=== PATIENT | female | born 1945 | race Caucasian/White ===

== ENCOUNTER 2021-10-02 13:25 | Outpatient (REF) | payer MEDICARE, SELFPAY ==
--- NOTE | ~2021-10-02 | MM_ITS ---
EXAMINATION: MM SCREENING DIGITAL BREAST TOMOSYNTHESIS, BILATERAL CLINICAL INFORMATION: Screening. Asymptomatic. The lifetime risk of breast cancer based on the Tyrer-Cuzick Model is 5%. COMPARISON: Mammography: 12/24/2018, 05/21/2017, 11/16/2016, 03/21/2016, 03/13/2016 TECHNIQUE: Digital breast tomosynthesis is performed in both the craniocaudal and mediolateral oblique views along with computer-aided detection (CAD). Synthesized 2D images are generated from the tomosynthesis. Additional bilateral CC and additional bilateral MLO views are provided. FINDINGS: There are scattered areas of fibroglandular density (ACR BI-RADS breast composition Category b). There are no significant masses, abnormal calcifications, or other abnormalities. No developing density. There are scattered bilateral predominantly vascular calcifications. Chronic bilateral nipple retraction is again noted. No significant changes from prior studies. MM/MM tomosynthesis screening BI IMPRESSION: No significant changes from prior exams. ASSESSMENT: BI-RADS 2: Benign RECOMMENDATION: Routine annual mammography screening. This patient's information was entered into a reminder system with a target due date for their next mammogram.
== END 2021-10-02 13:26 | disposition home or self-care (01) ==
LOC: HO.MAMMO 13:25
PROVIDERS: PCP Family Medicine; Visit Provider Family Medicine
DX: Z12.31 Encounter for screening mammogram for malignant neoplasm of breast (principal)
CPT/HCPCS: 77063; 77067

== ENCOUNTER 2023-01-10 15:57 | Emergency (ER) | payer OTHER, SELFPAY ==
--- NOTE | ~2023-01-10 | XR_ITS ---
EXAMINATION: X-RAY RIGHT FOREARM X-RAY RIGHT WRIST CLINICAL INFORMATION: Fall, pain. COMPARISON: No similar priors. TECHNIQUE: 2 views of the right forearm and 3 views of the right wrist. FINDINGS: Horizontally oriented distal radial fracture with mild impaction and dorsal angulation of the distal fractured fragment. Nondisplaced ulnar styloid fracture. No other fractures. Carpal rows are well aligned. Decreased bone mineralization with moderate multifocal degenerative osteoarthritis. Diffuse soft tissue swelling/thickening. No unexpected radiopaque foreign bodies. XR/XR wrist RT min 3V IMPRESSION: 1. Distal radial fracture with impaction and dorsal angulation. 2. Nondisplaced ulnar styloid fracture. 3. Osteopenia. 4. Moderate multifocal degenerative osteoarthritis.
--- NOTE | ~2023-01-10 | XR_ITS ---
EXAMINATION: X-RAY RIGHT FOREARM X-RAY RIGHT WRIST CLINICAL INFORMATION: Fall, pain. COMPARISON: No similar priors. TECHNIQUE: 2 views of the right forearm and 3 views of the right wrist. FINDINGS: Horizontally oriented distal radial fracture with mild impaction and dorsal angulation of the distal fractured fragment. Nondisplaced ulnar styloid fracture. No other fractures. Carpal rows are well aligned. Decreased bone mineralization with moderate multifocal degenerative osteoarthritis. Diffuse soft tissue swelling/thickening. No unexpected radiopaque foreign bodies. XR/XR forearm RT 2V IMPRESSION: 1. Distal radial fracture with impaction and dorsal angulation. 2. Nondisplaced ulnar styloid fracture. 3. Osteopenia. 4. Moderate multifocal degenerative osteoarthritis.
[2023-01-10 16:09] VITALS: BP 163/74; PULSE 84; RESP 18; TEMP 36.2; O2SAT 96; BMI 50.8
--- NOTE | 2023-01-10 16:09 | ED_ITS ---
HPI - Fall General Chief Complaint: Extremity Injury, Upper <Ambika Crandall CNP - Last Filed: 01/10/23 16:15> Stated Complaint: fall right arm today 01/10 <Ambika Crandall CNP - Last Filed: 01/10/23 16:15> Time Seen by Provider: 01/10/23 19:31 <Ambika Crandall CNP - Last Filed: 01/10/23 16:15> Source: patient <OH Hodges - Last Filed: 01/10/23 20:59> Mode of arrival: ambulatory <OH Hodges - Last Filed: 01/10/23 20:59> Limitations: no limitations <OH Hodges Last Filed: 01/10/23 20:59> History of Present Illness HPI Narrative: This is a 77-year-old female history of frequent falls presenting to the emergency department with daughter, according to daughter earlier today patient had a fall, unsure how she fell, she tells me sometimes she gets caught on her own feet, ends up falling. Likely mechanical trip and fall per patient and daughter. Denies any preceding symptoms such as chest pain, shortness of breath, headache, vision changes or dizziness prior to fall. There was no loss of consciousness. Patient tells me when she fell she fell onto an outstretched hand and braced herself with her right hand, patient right-hand dominant. Since then has been experiencing pain to right wrist and hand, worse with movement better at rest. Denies numbness, tingling. When she fell she did not hit her head. No reports of trauma to head head, neck, chest, abdomen or pelvis. Patient not on blood thinners. <OH Hodges - Last Filed: 01/10/23 20:59> Related Data Home Medications: Previous Rx's Medication Instructions Recorded morphine 15 mg immediate release 15 mg PO Q6H PRN pain 5 days #10 01/10/23 tablet tabs <Ambika Crandall CNP - Last Filed: 01/10/23 16:15> Allergies/Adverse Reactions: Allergies Allergy/AdvReac Type Severity Reaction Status Date / Time lisinopril [LISINOPRIL] Allergy Mild COUGH Unverified 07/21/20 16:15 Pt states no known allergy to Allergy Unknown Uncoded 11/26/17 00:00 <Ambika Crandall CNP - Last Filed: 01/10/23 16:15> Review of Systems Review of Systems: Constitutional : No Weight loss, No Fever, No Chills, No Fatigue, No Malaise ENT/Mouth : No sore throat, No Rhinorrhea Eyes: No Eye Pain, No Swelling, No Redness Cardiovascular : No Chest Pain, No SOB, No Dyspnea on Exertion, No Orthopnea, No Edema, No Palpitations Respiratory : No Cough, No Sputum, No Wheezing Gastrointestinal : No Nausea, No Vomiting, No Diarrhea, No Constipation, No abdominal Pain, No Hematochezia, No Melena Genitourinary : No Dysuria, No Urinary Frequency, No Hematuria, Musculoskeletal : + joint pain, No Myalgias, + Joint Swelling Skin : No Skin Lesions, No rash Neuro : No Weakness, No Numbness, No Dizziness, No Headache Psych : No Anxiety/Panic, No Depression All other systems reviewed and are negative <OH Hodges - Last Filed: 01/10/23 20:59> Yes all other systems are reviewed and are negative <OH Hodges - Last Filed: 01/10/23 20:59> [facility] Past Medical History Attestation statement: The following information was validated with the patient. <OH Hodges - Last Filed: 01/10/23 20:59> Source: old records reviewed and nursing notes reviewed <OH Hodges - Last Filed: 01/10/23 20:59> Social History Social History: Social History Smoked in Last 30 Days: No Use of substances other than those prescribed or required for medical reasons: No Advance Directives: No Advance Directives Information Provided: No <Ambika Crandall CNP - Last Filed: 01/10/23 16:15> Physical Exam Vital Signs: Vital Signs: Last Vital Signs Temp 97.1 F 01/10/23 16:09 Pulse 84 01/10/23 16:09 Resp 18 01/10/23 16:09 BP 163/74 H 01/10/23 16:09 Pulse Ox 96 01/10/23 16:09 O2 Del Method 01/10/23 16:09 BMI result Body Mass Index 50.8 <Ambika Annamarialucía Crandall CNP - Last Filed: 01/10/23 16:15> Vital Signs: Last Vital Signs Temp 97.1 F 01/10/23 16:09 Pulse 84 01/10/23 16:09 Resp 18 01/10/23 16:09 BP 163/74 H 01/10/23 16:09 Pulse Ox 96 01/10/23 16:09 O2 Del Method 01/10/23 16:09 BMI result Body Mass Index 50.8 vss <OH Hodges - Last Filed: 01/10/23 20:59> Appearance: Alert.? Oriented X3.? No acute distress.? Head: Normocephalic, atraumatic, no step-offs or deformities Eyes: Pupils equal, round and reactive to light.? Neck: Normal inspection.? Neck supple.? CVS: Normal heart rate and rhythm.? Pulses normal.? Respiratory: No respiratory distress.? Breath sounds normal.? Abdomen: Soft and nontender.? Skin: Skin warm and dry.? Normal skin color.? Normal skin turgor.? Extremities: No lower extremity edema.? No calf ttp. 5/5 strength to bilateral upper and lower extremities + swelling to R. wrist w/ limited ROM secondary to pain. 2+ radial pulses equal and b/l. No wrist drop. Cap refill < 2 seconds equal and b/l. Normal senation to b/l UE. Able to squeeze my hands normal handgrip. Back: No midline tenderness, no C-spine tenderness, full range of motion, no CVA tenderness bilaterally Neuro: Oriented X 3.? No motor deficit.? No sensory deficit. CN 2-12 intact. Ambulating w/ steady gait normal coordination. Normal finger to nose. GCS 15 NIHSS 0 <OH Hodges - Last Filed: 01/10/23 20:59> Course Course Course Narrative: This is an RME: Additional HPI, ROS, PE not included below will be deferre d to primary provider. Patient is a 77-year-old female who presents emergency department for evaluation after a fall having occurred today. Patient was walking into the bathroom, denies knowingly tripping on anything, when suddenly she fell landing on her right side, patient denies head strike or loss of consciousness. Denies any precipitating symptoms such as dizziness, lightheadedness, headache, vision changes, chest pain, shortness of breath. Daughter reports history of similar fall in the past a few years ago. Currently she is reporting pain to the right wrist radiating up forearm, made worse with movement, denies numbness or tingling. Plan: labs, EKG, XR wrist/ forearm <Ambika Crandall CNP - Last Filed: 01/10/23 16:15> Reevaluation(s) Reevaluation #1: CBC w/ leukocytosis 18.7 likely secondary to acute fracture/ reactivity. Chemistry without electrolyte abnormalities requiring intervention. EKG nonischemic, trop negative, unlikley ACS. Covid negative. Xray of right wrist w/ distal radial fx w/ impaction and dorsal angulation. Nondisplaced ulnar styloid fx noted w/ osteopenia and degenerative osteoarthritis. Discssed this case w/ my attending Dr. Gomez who recommends volar splint, ortho follow up and dc home if patient feeling well. <OH Hodges - Last Filed: 01/10/23 20:59> Time: 19:58 <OH Hodges - Last Filed: 01/10/23 20:59> Reevaluation #2: Patient feeling well, placed in a volar splint. Morphine given for pain. Plan at this time is to discharge patient home with prompt ortho follow-up. Educated patient on diagnosis and treatment plan, answered all question, patient verbalizes understanding. At this time patient will be discharged home, advised to return with new or worsening symptoms. Educated on worrisome signs and symptoms and when to return. At this time I feel comfortable discharge home. <OH Hodges - Last Filed: 01/10/23 20:59> Time: 20:15 <OH Hodges - Last Filed: 01/10/23 20:59> Reevaluation #3: I did discuss this case with Dr. Norwood hand surgeon who recommends splinting and encouraging elevation to level of the heart. Patient should call the clinic tomorrow for an appointment within the next few days. <OH Hodges - Last Filed: 01/10/23 20:59> Time: 20:22 <OH Hodges - Last Filed: 01/10/23 20:59> Medications Administered Discontinued Medications Generic Name Dose Route Start Last Admin Trade Name Freq PRN Reason Stop Dose Admin Morphine Sulfate 15 mg 01/10/23 19:52 01/10/23 20:52 Morphine Sulfate Immed Release 15 Mg Tablet PO 01/10/23 19:53 15 mg ONCE ONE Administration <Ambika Crandall CNP - Last Filed: 01/10/23 16:15> Medications Administered Discontinued Medications Generic Name Dose Route Start Last Admin Trade Name Freq PRN Reason Stop Dose Admin Morphine Sulfate 15 mg 01/10/23 19:52 01/10/23 20:52 Morphine Sulfate Immed Release 15 Mg Tablet PO 01/10/23 19:53 15 mg ONCE ONE Administration <OH Hodges - Last Filed: 01/10/23 20:59> Medical Decision Making Medical Decision Making MDM Narrative: 1948 77 year old female present s/p FOOSH w/ right wrist pain. No numbness or tingling. No other reported injuries. PE significant for No lower extremity edema.? No calf ttp. 5/5 strength to bilateral upper and lower extremities + swelling to R. wrist w/ limited ROM secondary to pain. 2+ radial pulses equal and b/l. No wrist drop. Cap refill < 2 seconds equal and b/l. Normal senation to b/l UE. Able to squeeze my hands nor mal handgrip. Neuro nofocal Concerns for fx, dislocaiton. Unlikley NV compromise, radial nerve injury. No head strike or injury elsewhere unlikley ICH, stroke, or traumatic injury to chest abd and pelvis. Hx and PE not consistent w/ PE or ACS Plan- imaging, labs, trop, ekg, pain control, splint. <OH Hodges - Last Filed: 01/10/23 20:59> Differential Diagnosis Differential Diagnoses: The differential diagnosis associated with the presentation includes <OH Hodges - Last Filed: 01/10/23 20:59> Admission/Observation Consideration of admission/observation: Escalation of care including admission/observation considered <OH Hodges - Last Filed: 01/10/23 20:59> Unlikley <OH Hodges - Last Filed: 01/10/23 20:59> Lab Data MDM Lab Attestation statement: I reviewed the patient's lab results. <OH Hodges - Last Filed: 01/10/23 20:59> Result Diagrams: 01/10/23 17:06 01/10/23 17:06 <Ambika Crandall CNP - Last Filed: 01/10/23 16:15> Labs: Lab Results 01/10/23 01/10/23 01/10/23 Range/Units 17:06 17:06 17:06 WBC 18.7 H (4.8-10.8) X10*3/uL RBC 4.37 (4.20-5.50) X10*6/uL Hgb 13.3 (12.0-16.0) g/dl Hct 42.2 (37.0-47.0) % MCV 96.6 (80.0-98.0) fL MCH 30.4 (27.0-33.0) pg MCHC 31.5 (31.0-35.0) g/dl RDW 13.9 (11.0-16.0) % Plt Count 405 H (160-400) X10*3/uL MPV 8.4 L (9.4-12.3) fL Immature Gran % (Auto) 0.7 H (0.0-0.4) % Neut % (Auto) 85.0 H (45-73) % Lymph % (Auto) 6.9 L (20-40) % [place]on % (Auto) 6.3 (2-11) % Eos % (Auto) 0.7 (0-4) % Baso % (Auto) 0.4 (0-2) % Lymph # (Auto) 1.3 (1.2-4.9) X10*3/uL [place] # (Auto) 1.2 (0.1-1.2) X10*3/uL Eos # (Auto) 0.1 (0.0-0.4) X10*3/uL Baso # (Auto) 0.1 (0.0-0.2) X10*3/uL Abs Immat Gran (auto) 0.13 H (0.00-0.03) X10*3/uL Absolute Neuts (auto) 15.9 H (2.0-8.3) x10*3/uL Absolute Nucleated RBC 0.000 (0.0-0.012) X10*3/uL Nucleated RBC % (auto) 0.0 (0.0-0.2) /100WBC Sodium 142 (135-145) mmol/L Potassium 5.1 (3.3-5.1) mmol/L Chloride 106 (96-108) mmol/L Carbon Dioxide 24 (22-29) mmol/L Anion Gap 17 (12-20) BUN 26 H (9-16) mg/dL Creatinine 1.12 (0.5-1.4) mg/dL Estim Creat Clear Calc 37.3 Estimated GFR 47 Random Glucose 94 (60-115) mg/dL Calcium 9.4 (8.4-10.2) mg/dL Total Bilirubin 0.7 (0.0-1.0) mg/dL AST 19 (5-31) U/L ALT 37 H (0-31) U/L Alkaline Phosphatase 163 H (39-117) U/L Troponin I High Sens < 3.5 (<3.5-17.0) ng/L Total Protein 6.2 L (6.5-8.0) g/dL Albumin 3.6 (3.5-5.0) g/dL COVID-19 (CARL) (Negative) COVID-19 Clin Com 01/10/23 Range/Units 17:06 WBC (4.8-10.8) X10*3/uL RBC (4.20-5.50) X10*6/uL Hgb (12.0-16.0) g/dl Hct (37.0-47.0) % MCV (80.0-98.0) fL MCH (27.0-33.0) pg MCHC (31.0-35.0) g/dl RDW (11.0-16.0) % Plt Count (160-400) X10*3/uL MPV (9.4-12.3) fL Immature Gran % (Auto) (0.0-0.4) % Neut % (Auto) (45-73) % Lymph % (Auto) (20-40) % Haralson % (Auto) (2-11) % Eos % (Auto) (0-4) % Baso % (Auto) (0-2) % Lymph # (Auto) (1.2-4.9) X10*3/uL [place]on # (Auto) (0.1-1.2) X10*3/uL Eos # (Auto) (0.0-0.4) X10*3/uL Baso # (Auto) (0.0-0.2) X10*3/uL Abs Immat Gran (auto) (0.00-0.03) X10*3/uL Absolute Neuts (auto) (2.0-8.3) x10*3/uL Absolute Nucleated RBC (0.0-0.012) X10*3/uL Nucleated RBC % (auto) (0.0-0.2) /100WBC Sodium (135-145) mmol/L Potassium (3.3-5.1) mmol/L Chloride (96-108) mmol/L Carbon Dioxide (22-29) mmol/L Anion Gap (12-20) BUN (9-16) mg/dL Creatinine (0.5-1.4) mg/dL Estim Creat Clear Calc Estimated GFR Random Glucose (60-115) mg/dL Calcium (8.4-10.2) mg/dL Total Bilirubin (0.0-1.0) mg/dL AST (5-31) U/L ALT (0-31) U/L Alkaline Phosphatase (39-117) U/L Troponin I High Sens (<3.5-17.0) ng/L Total Protein (6.5-8.0) g/dL Albumin (3.5-5.0) g/dL COVID-19 (CARL) Negative (Negative) COVID-19 Clin Com See Note <Ambika Crandall, MARTELL - Last Filed: 01/10/23 16:15> Lab Results 01/10/23 01/10/23 01/10/23 Range/Units 17:06 17:06 17:06 WBC 18.7 H (4.8-10.8) X10*3/uL RBC 4.37 (4.20-5.50) X10*6/uL Hgb 13.3 (12.0-16.0) g/dl Hct 42.2 (37.0-47.0) % MCV 96.6 (80.0-98.0) fL MCH 30.4 (27.0-33.0) pg MCHC 31.5 (31.0-35.0) g/dl RDW 13.9 (11.0-16.0) % Plt Count 405 H (160-400) X10*3/uL MPV 8.4 L (9.4-12.3) fL Immature Gran % (Auto) 0.7 H (0.0-0.4) % Neut % (Auto) 85.0 H (45-73) % Lymph % (Auto) 6.9 L (20-40) % [place]on % (Auto) 6.3 (2-11) % Eos % (Auto) 0.7 (0-4) % Baso % (Auto) 0.4 (0-2) % Lymph # (Auto) 1.3 (1.2-4.9) X10*3/uL [place]on # (Auto) 1.2 (0.1-1.2) X10*3/uL Eos # (Auto) 0.1 (0.0-0.4) X10*3/uL Baso # (Auto) 0.1 (0.0-0.2) X10*3/uL Abs Immat Gran (auto) 0.13 H (0.00-0.03) X10*3/uL Absolute Neuts (auto) 15.9 H (2.0-8.3) x10*3/uL Absolute Nucleated RBC 0.000 (0.0-0.012) X10*3/uL Nucleated RBC % (auto) 0.0 (0.0-0.2) /100WBC Sodium 142 (135-145) mmol/L Potassium 5.1 (3.3-5.1) mmol/L Chloride 106 (96-108) mmol/L Carbon Dioxide 24 (22-29) mmol/L Anion Gap 17 (12-20) BUN 26 H (9-16) mg/dL Creatinine 1.12 (0.5-1.4) mg/dL Estim Creat Clear Calc 37.3 Estimated GFR 47 Random Glucose 94 (60-115) mg/dL Calcium 9.4 (8.4-10.2) mg/dL Total Bilirubin 0.7 (0.0-1.0) mg/dL AST 19 (5-31) U/L ALT 37 H (0-31) U/L Alkaline Phosphatase 163 H (39-117) U/L Troponin I High Sens < 3.5 (<3.5-17.0) ng/L Total Protein 6.2 L (6.5-8.0) g/dL Albumin 3.6 (3.5-5.0) g/dL COVID-19 (CARL) (Negative) COVID-19 Clin Com 01/10/23 Range/Units 17:06 WBC (4.8-10.8) X10*3/uL RBC (4.20-5.50) X10*6/uL Hgb (12.0-16.0) g/dl Hct (37.0-47.0) % MCV (80.0-98.0) fL MCH (27.0-33.0) pg MCHC (31.0-35.0) g/dl RDW (11.0-16.0) % Plt Count (160-400) X10*3/uL MPV (9.4-12.3) fL Immature Gran % (Auto) (0.0-0.4) % Neut % (Auto) (45-73) % Lymph % (Auto) (20-40) % [place]alson % (Auto) (2-11) % Eos % (Auto) (0-4) % Baso % (Auto) (0-2) % Lymph # (Auto) (1.2-4.9) X10*3/uL [place] # (Auto) (0.1-1.2) X10*3/uL Eos # (Auto) (0.0-0.4) X10*3/uL Baso # (Auto) (0.0-0.2) X10*3/uL Abs Immat Gran (auto) (0.00-0.03) X10*3/uL Absolute Neuts (auto) (2.0-8.3) x10*3/uL Absolute Nucleated RBC (0.0-0.012) X10*3/uL Nucleated RBC % (auto) (0.0-0.2) /100WBC Sodium (135-145) mmol/L Potassium (3.3-5.1) mmol/L Chloride (96-108) mmol/L Carbon Dioxide (22-29) mmol/L Anion Gap (12-20) BUN (9-16) mg/dL Creatinine (0.5-1.4) mg/dL Estim Creat Clear Calc Estimated GFR Random Glucose (60-115) mg/dL Calcium (8.4-10.2) mg/dL Total Bilirubin (0.0-1.0) mg/dL AST (5-31) U/L ALT (0-31) U/L Alkaline Phosphatase (39-117) U/L Troponin I High Sens (<3.5-17.0) ng/L Total Protein (6.5-8.0) g/dL Albumin (3.5-5.0) g/dL COVID-19 (CARL) Negative (Negative) COVID-19 Clin Com See Note <OH Hodges - Last Filed: 01/10/23 20:59> Independent Interpretation I performed an independent interpretation of an: EKG (ventricular rate of 71 pr normal qrs normal qt/qtc normal. EKG w/ NSR no LAURA or inversions ) and Plain X-Ray (fx of radius and ulna ) <OH Hodges Last Filed: 01/10/23 20:59> Radiology Impression Discussion of test interpretation with radiology: I have reviewed the radiologist's reading. <OH Hodges Last Filed: 01/10/23 20:59> Core Measures AMI core measures followed: Yes <OH Hodges Last Filed: 01/10/23 20:59> Measure exclusions: not indicated <OH Hodges Last Filed: 01/10/23 20:59> Critical Care Time Critical Care Time Critical Care Time: Yes <OH Hodges Last Filed: 01/10/23 20:59> Total Critical Care Time: 35 <OH Hodges - Last Filed: 01/10/23 20:59> Attestation: I attest to this time spent taking care of the patient, obtaining history, physical, reviewing labs, imaging, speaking to my attending, speaking to specialist. <OH Hodges - Last Filed: 01/10/23 20:59> Discharge Plan Discharge Clinical Impression: Distal radial fracture, Fracture of ulnar styloid, Fall <Ambika Crandall CNP - Last Filed: 01/10/23 16:15> Patient Disposition: Home, Self-Care <Ambika Crandall CNP - Last Filed: 01/10/23 16:15> Instructions: Arm Fracture in Adults (ED), Wrist Fracture in Adults (ED), Fall Prevention for Older Adults (ED), R.I.C.E. Treatment (ED), Fall Prevention (ED) <Ambika Crandall CNP - Last Filed: 01/10/23 16:15> Additional Instructions: Take your medications as prescribed. If you were prescribed antibiotics today, it is important that you take your medication to their entirety, do not skip any doses, do not finish them early. Follow-up with your primary care provider this week. Please follow-up with the orthopedic team call tomorrow to schedule an appointment. Return to the emergency department with new or worsening symptoms. Such as fevers, chills, chest pain, shortness of breath, nausea, vomiting, dizziness, headache, vision changes, lethargy, numbness, tingling, wrist drop In case of emergency call 911 A narcotic Morphine has been sent to your pharmacy please take this as prescribed. Do not take more than the prescribed dose. Narcotic medications can cause addiction. Please do not mix them with alcohol. Do not take them while driving or operating machinery. Do not take them with any other narcotics. Do not share them with friends or family. They can cause constipation. Take them only for severe pain. Harahan addi medicamentos seg?n lo prescrito. Si le recetaron antibi?ticos hoy, es importante que tome prater medicamento en prater totalidad, no se salte ninguna dosis, no los termine antes de tiempo. Seguimiento con prater proveedor de atenci?n primaria esta semana. [place] un seguimi ento con el equipo ortop?dico, llame ma?lali para programar teetee lisa. Regrese al departamento de emergencias con s?ntomas nuevos o que empeoran. Lismore fiebre, escalofr?os, dolor de pecho, dificultad para respirar, n?useas, v?mitos, mareos, dolor de jessica, cambios en la visi?n, letargo, entumecimiento, hormigueo, mu?eca ca?da. En yvonne de emergencia llama al 911 Se rosario enviado un narc?wilber Morphine a prater farmacia, t?martines seg?n lo prescrito. No tome m?s de la dosis prescrita. Los medicamentos narc?ticos pueden causar adicci?n. Por favor, no los mezcle con alcohol. No los tome mientras conduce u opera maquinaria. No los tome con jorge?n otro narc?wilber. No los comparta con amigos o familiares. Pueden causar estre?imiento. T?melos s?lo para el dolor intenso. XR/XR wrist RT min 3V IMPRESSION: 1.? Distal radial fracture with impaction and dorsal angulation. 2.? Nondisplaced ulnar styloid fracture. 3.? Osteopenia. 4.? Moderate multifocal degenerative osteoarthritis. <Ambika Crandall CNP - Last Filed: 01/10/23 16:15> Prescriptions: New morphine 15 mg tablet 15 mg PO Q6H PRN (Reason: pain) 5 Days Qty: 10 0RF Rx Instructions: Partial Fill upon patient request. <Ambika Crandall CNP - Last Filed: 01/10/23 16:15> Referrals: [facility] [Provider Group] - 1 day Vivien Morales MD [Primary Care Provider] - 2 days <Ambika Crandall CNP - Last Filed: 01/10/23 16:15> Stand Alone Forms: Work/School Release <Ambika Crandall, TACTICAL DEBRIEFER OFFICER - Last Filed: 01/10/23 16:15>
--- NOTE | 2023-01-10 16:14 | ECG_ITS ---
Test Reason : FALL Blood Pressure : / mmHG Vent. Rate : 071 BPM Atrial Rate : 071 BPM P-R Int : 142 ms QRS Dur : 078 ms QT Int : 400 ms P-R-T Axes : 013 -17 042 degrees QTc Int : 434 ms Normal sinus rhythm Normal ECG When compared with ECG of 30-OCT-2010 10:38, No significant change was found Referred By: Ambika Crandall Electronically Signed By:LUNA PFEIFFER
[2023-01-10 17:16] LABS: MANUAL DIFF FLAG NO
[2023-01-10 17:19] LABS: Basophils Absolute Auto 0.1 X10*3/uL (0.0-0.2); Basophils Percent Auto 0.4 % (0-2); Eosinophils Absolute Auto 0.1 X10*3/uL (0.0-0.4); Eosinophils Percent Auto 0.7 % (0-4); Hematocrit 42.2 % (37.0-47.0); Hemoglobin 13.3 g/dl (12.0-16.0); Imm Gran Abs Auto 0.13 X10*3/uL (0.00-0.03); Imm Gran Pct Auto 0.7 % (0.0-0.4); Lymphocytes Absolute Auto 1.3 X10*3/uL (1.2-4.9); Lymphocytes Percent Auto 6.9 % (20-40); Mean Corpuscular HGB Conc 31.5 g/dl (31.0-35.0); Mean Corpuscular Hemoglobin 30.4 pg (27.0-33.0); Mean Corpuscular Volume 96.6 fL (80.0-98.0); Mean Platelet Volume 8.4 fL (9.4-12.3); Monocytes Absolute Auto 1.2 X10*3/uL (0.1-1.2); Monocytes Percent Auto 6.3 % (2-11); Neutrophils Absolute Auto 15.9 x10*3/uL (2.0-8.3); Platelet Count 405 X10*3/uL (160-400); Red Blood Count 4.37 X10*6/uL (4.20-5.50); Red Cell Distribution Width 13.9 % (11.0-16.0); White Blood Count 18.7 X10*3/uL (4.8-10.8)
[2023-01-10 17:36] LABS: COVID-19 Test Negative (Negative); IDNOW Serial# 16C4AD1C
[2023-01-10 17:52] LABS: Alanine Aminotransferase 37 U/L (0-31); Albumin Level 3.6 g/dL (3.5-5.0); Alkaline Phosphatase 163 U/L (39-117); Anion Gap 17 (12-20); Aspartate Amino Transferase 19 U/L (5-31); Bilirubin Total 0.7 mg/dL (0.0-1.0); Blood Urea Nitrogen 26 mg/dL (9-16); Calcium 9.4 mg/dL (8.4-10.2); Carbon Dioxide 24 mmol/L (22-29); Chloride 106 mmol/L (96-108); Creatinine Clr Calc Pharmacy 37.3; Estimated Glomerular Filt Rate 47; Glucose Random 94 mg/dL (60-115); Potassium 5.1 mmol/L (3.3-5.1); Sodium 142 mmol/L (135-145); Total Protein 6.2 g/dL (6.5-8.0)
[2023-01-10 17:59] LABS: Troponin-I High Sensitivity < 3.5 ng/L (<3.5-17.0)
[2023-01-10] MEDS: Morphine Sulfate Immed Release 15 MG TABLET PO (20:52)
== END 2023-01-10 21:30 | disposition home or self-care (01) ==
PROVIDERS: Nurse Practitioner Family; Emergency Provider Internal Medicine; PCP Family Medicine
DX: S52.501A Unspecified fracture of the lower end of right radius, initial encounter for closed fracture (principal); S52.611A Displaced fracture of right ulna styloid process, initial encounter for closed fracture; M25.531 Pain in right wrist; W01.0XXA Fall on same level from slipping, tripping and stumbling without subsequent striking against object, initial encounter; Y93.9 Activity, unspecified; Y92.9 Unspecified place or not applicable; Y99.9 Unspecified external cause status; Z20.822 Contact with and (suspected) exposure to COVID-19; Z20.828 Contact with and (suspected) exposure to other viral communicable diseases; Z79.899 Other long term (current) drug therapy
CPT/HCPCS: 29125; 73090; 73110; 80053; 84484; 85025; 87635; 93005; 99284

== ENCOUNTER 2023-01-15 13:21 | Emergency (ER) | payer OTHER, SELFPAY ==
--- NOTE | ~2023-01-15 | CT_ITS ---
EXAMINATION: CT ABDOMEN AND PELVIS WITHOUT CONTRAST CLINICAL INFORMATION: Abdominal pain and vomiting. COMPARISON: None TECHNIQUE: Multidetector volumetric imaging was performed from the superior aspect of the liver through the pubic symphysis. Sagittal and coronal reformatted images were obtained on the technologist's workstation. This CT examination was performed using dose optimization techniques as appropriate, variously including the following: *Automated exposure control *Adjustment of mA and/or kV according to patient size (this includes techniques or standardized protocols for targeted exams where dose is matched to indication/reason for exam; i.e. extremities or head) *Use of iterative reconstruction technique DLP: 847 mGy-cm FINDINGS: LUNG BASES: Bibasilar atelectasis. Coronary artery calcification. LIVER, GALLBLADDER, AND BILIARY TREE: The liver is normal in size, shape, and attenuation. No focal hepatic lesion or biliary ductal dilatation is present. Cholecystectomy. PANCREAS: Atrophic with no focal abnormality. SPLEEN: Unremarkable. ADRENAL GLANDS: Unremarkable. KIDNEYS AND URETERS: The kidneys are normal in size, shape, and attenuation. No hydronephrosis, hydroureter, or calculi seen. Symmetric perinephric stranding. BLADDER: Unremarkable. GASTROINTESTINAL TRACT: Postsurgical changes of gastric bypass. Associated small hiatal hernia. Normal caliber small bowel. No obstruction. No colonic wall thickening or inflammation. Normal appendix. No free air or free fluid. ABDOMINAL WALL: No significant hernia is appreciated. LYMPH NODES: Normal. VASCULAR: Normal caliber aorta with mild atherosclerotic calcification. PELVIC VISCERA: The uterus and adnexa are unremarkable. OSSEOUS STRUCTURES: No acute or suspicious osseous abnormality. Mild degenerative changes of the spine and hips. CT/CT abdomen pelvis wo IV con IMPRESSION: No acute findings in the abdomen or pelvis. No inflammatory changes. Postsurgical changes of gastric bypass with small hiatal hernia. Fleischner guidelines were followed.
[2023-01-15 13:26] VITALS: BP 149/64; PULSE 70; RESP 18; TEMP 36.5; O2SAT 95; BMI 46.5
--- NOTE | 2023-01-15 14:19 | ED_ITS ---
HPI - Abdominal Pain General Chief Complaint: Abdominal Pain Stated Complaint: VOMITING Time Seen by Provider: 01/15/23 13:26 Source: patient and EMS Mode of arrival: EMS Limitations: no limitations History of Present Illness HPI narrative: 77-year-old Bhutanese-speaking female presents to the ER for evaluation of re current vomiting, diffuse abdominal pain, and dizziness with exertion x2 days. Pt reports 4 episodes of emesis yesterday with an additional 2 today. Also reports constipation x4 days with ability to pass gas, and inability to tolerate p.o intake. Denies fevers, diarrhea, falls or LOC associated with dizziness, hematemesis, chest pain, SOB, recent travel, or sick contacts. MD elicited complaint: abdominal pain and flank pain Pertinent past history: constipation Onset (ago): day(s) Pain Consistency: constant Location: diffuse Severity: moderate Quality: aching Exacerbating factors: eating Relieving factors: nothing Associated symptoms: nausea and vomiting Related Data Previous Rx's Medication Instructions Recorded morphine 15 mg immediate release 15 mg PO Q6H PRN pain 5 days #10 01/10/23 tablet tabs ondansetron 4 mg disintegrating 4 mg PO Q8H PRN nausea and 01/15/23 tablet vomiting #10 tabs Allergies Allergy/AdvReac Type Severity Reaction Status Date / Time lisinopril [LISINOPRIL] Allergy Mild COUGH Unverified 07/21/20 16:15 Pt states no known allergy to Allergy Unknown Uncoded 11/26/17 00:00 Review of Systems Review of Systems Yes all other systems are reviewed and are negative [facility] Social History Social History Advance Directives: No Physical Exam ED Vital Signs: Vital Signs - 24 hr 01/15/23 13:26 Temperature 97.7 F Pulse Rate 70 Respiratory Rate 18 Blood Pressure 149/64 H Pulse Oximetry 95 Oxygen Delivery Method Room Air BMI result Body Mass Index 46.5 Appearance: Alert. Oriented X3. No acute distress. Eyes: Pupils equal, round and reactive to light. Neck: Normal inspection. CVS: Normal heart rate and rhythm. Pulses normal. Respiratory: No respiratory distress. Breath sounds normal. Abdomen: Soft and diffusely tender to palpation. non-distended, no guarding or rigidity. Hypoactive BS x4 Skin: Skin warm and dry. Normal skin color. Normal skin turgor. No rashes. Extremities: No lower extremity edema. Neuro: Oriented X3. No motor deficit. No sensory deficit. Course Reevaluation(s) Reevaluation #1: Patient feeling better. Tolerating p.o.. CT scan unremarkable. Stable for discharge home with p.o. Zofran and supportive care. Most likely viral gastroenteritis Medical Decision Making Medical Decision Making [facility] Narrative: 77-year-old Bhutanese-speaking female presents to the ER for evaluation of recurrent vomiting, diffuse abdominal pain, and dizziness with exertion x2 days. Also reports constipation x4 days with ability to pass gas, and poor p.o intake. On exam patient is well-appearing, in NAD, VSS. Abdomen is soft, non- distended, diffusely TTP, without rigidity or guarding. Bowel sounds hypoactive x4. Plan: Labs, CT abd, UA, Zofran for nausea. CT scan unremarkable. Patient tolerating p.o.. Stable for discharge home with p.r.n. Zofran and supportive care. Differential Diagnosis Differential Diagnoses: The differential diagnosis associated with the presentation includes Viral syndrome/gastroenteritis, food poisoning, SBO, appendicitis, diverticulitis, pancreatitis, choleycystis Lab Data [facility] Lab Attestation statement: I reviewed the patient's lab results. Mild leukocytosis, likely reactive due to vomiting. No major metabolic derangement, no signs of biliary obstruction or pancreatitis on her lab work 01/15/23 14:42 01/15/23 14:42 Labs: Lab Results 01/15/23 01/15/23 01/15/23 Range/Units 14:42 14:42 14:42 WBC 12.2 H (4.8-10.8) X10*3/uL RBC 3.86 L (4.20-5.50) X10*6/uL Hgb 12.0 (12.0-16.0) g/dl Hct 37.0 (37.0-47.0) % MCV 95.9 (80.0-98.0) fL MCH 31.1 (27.0-33.0) pg MCHC 32.4 (31.0-35.0) g/dl RDW 14.0 (11.0-16.0) % Plt Count 306 (160-400) X10*3/uL MPV 8.7 L (9.4-12.3) fL Immature Gran % (Auto) 0.5 H (0.0-0.4) % Neut % (Auto) 81.2 H (45-73) % Lymph % (Auto) 10.3 L (20-40) % [place] % (Auto) 6.6 (2-11) % Eos % (Auto) 1.0 (0-4) % Baso % (Auto) 0.4 (0-2) % Lymph # (Auto) 1.3 (1.2-4.9) X10*3/uL [place] # (Auto) 0.8 (0.1-1.2) X10*3/uL Eos # (Auto) 0.1 (0.0-0.4) X10*3/uL Baso # (Auto) 0.1 (0.0-0.2) X10*3/uL Abs Immat Gran (auto) 0.06 H (0.00-0.03) X10*3/uL Absolute Neuts (auto) 9.9 H (2.0-8.3) x10*3/uL Absolute Nucleated RBC 0.000 (0.0-0.012) X10*3/uL Nucleated RBC % (auto) 0.0 (0.0-0.2) /100WBC Sodium 144 (135-145) mmol/L Potassium 3.9 D (3.3-5.1) mmol/L Chloride 108 (96-108) mmol/L Carbon Dioxide 27 (22-29) mmol/L Anion Gap 13 (12-20) BUN 21 H (9-16) mg/dL Creatinine 0.71 (0.5-1.4) mg/dL Estim Creat Clear Calc 61.2 Estimated GFR > 60 Random Glucose 74 (60-115) mg/dL Calcium 8.9 (8.4-10.2) mg/dL Magnesium 1.8 (1.6-2.6) mg/dL Total Bilirubin 1.4 H (0.0-1.0) mg/dL Direct Bilirubin 0.3 (0.0-0.5) mg/dL AST 16 (5-31) U/L ALT 25 (0-31) U/L Alkaline Phosphatase 139 H (39-117) U/L Total Protein 5.6 L (6.5-8.0) g/dL Albumin 3.2 L (3.5-5.0) g/dL Lipase 11 (8-78) U/L COVID-19 (CARL) Negative (Negative) COVID-19 Clin Com See Note Independent Interpretation I performed an independent interpretation of an: CT Scan Interpretation: CT scan abd/pelvis: No evidence of bowel obstruction, bowels with normal, moderate amount of stool, no acute pathology, agrees radiologist read Radiology Impression Discussion of test interpretation with radiology: I have reviewed the radiologist's reading. Radiologist Impression: EXAMINATION: CT ABDOMEN AND PELVIS WITHOUT CONTRAST? CLINICAL INFORMATION: Abdominal pain and vomiting.? COMPARISON: None? TECHNIQUE: Multidetector volumetric imaging was performed from the superior aspect of the liver through the pubic symphysis. Sagittal and coronal reformatted images were obtained on the technologist's workstation.? FINDINGS: LUNG BASES: Bibasilar atelectasis. Coronary artery calcification.? LIVER, GALLBLADDER, AND BILIARY TREE: The liver is normal in size, shape, and attenuation. No focal hepatic lesion or biliary ductal dilatation is present. Cholecystectomy.? PANCREAS: Atrophic with no focal abnormality.? SPLEEN: Unremarkable.? ADRENAL GLANDS: Unremarkable.? KIDNEYS AND URETERS: The kidneys are normal in size, shape, and attenuation. No hydronephrosis, hydroureter, or calculi seen. Symmetric perinephric stranding. ? BLADDER: Unremarkable.? GASTROINTESTINAL TRACT: Postsurgical changes of gastric bypass. Associated small hiatal hernia. Normal caliber small bowel. No obstruction. No colonic wall thickening or inflammation. Normal appendix. No free air or free fluid.? ABDOMINAL WALL: No significant hernia is appreciated.? LYMPH NODES: Normal. VASCULAR: Normal caliber aorta with mild atherosclerotic calcification. PELVIC VISCERA: The uterus and adnexa are unremarkable.? OSSEOUS STRUCTURES: No acute or suspicious osseous abnormality. Mild degenerative changes of the spine and hips.? CT/CT abdomen pelvis wo IV con IMPRESSION: No acute findings in the abdomen or pelvis. No inflammatory changes. Postsurgical changes of gastric bypass with small hiatal hernia. ? Fleischner guidelines were followed. Independent Historian Clinical information obtained from an independent historian. History obtained from or confirmed by: EMS External Record Review External record reviewed: Outpatient record, Prior outpatient labs and Prior outpatient radiology Prescription Management I considered prescription management with: Other (Antiemetic) Chronic Conditions Patient?s care impacted by: Other (Status post gastric bypass) Medications Administered Discontinued Medications Generic Name Dose Route Start Last Admin Trade Name Frestiven PRN Reason Stop Dose Admin Sodium Chloride 1,000 mls @ 999 mls/hr 01/15/23 14:30 01/15/23 15:53 Ns IVCONT 01/15/23 15:30 999 mls/hr .Q1H1M ELISABETH Administration Ondansetron HCl 4 mg 01/15/23 14:28 01/15/23 15:52 Ondansetron Hcl 4 Mg/2 Ml Vial IVPUSH 01/15/23 14:29 4 mg ONCE ONE Administration Critical Care Time Critical Care Time Critical Care Time: No Discharge Plan Discharge Clinical Impression: Gastroenteritis Patient Disposition: Home, Self-Care Instructions: Gastroenteritis (ED) Additional Instructions: You lab workup today was unremarkable. You most likely have a viral GI bug also known as gastroenteritis. Treatment is supportive care, symptoms usually resolve on their own in 48-72 hours. Recommend rest and plenty of oral hydration. Stick to a bland diet like soup and toast while you are not feeling well. Take the prescribed medication as needed for nausea. Recommend over the counter Pepto Bismol or Imodium for upset stomach and diarrhea. Follow up with your doctor as needed. If you develop new or worsening symptoms call 911 or come back to the ER for further evaluation. Tu an?lisis de laboratorio de hoy no tuvo nada especial. Lo m?s probable es que tenga un bicho GI viral, tambi?n conocido adilene gastroenteritis. El tratamiento es atenci?n de apoyo, los s?ntomas generalmente se resuelven por s? solos en 48 a 72 horas. Recomendable reposo y elbert hidrataci?n oral. Siga teetee dieta blanda adilene sopa y tostadas mientras no se sienta makenna. Laura el medicamento recetado seg?n sea necesario para las n?useas. Recomiende Pepto Bismol o Imodium de venta amanda para el malestar estomacal y la diarrea. Corazon un seguimiento con prater m?dico seg?n sea necesario. Si desarrolla s?ntomas nuevos o que empeoran, llame al 911 o regrese a la hitesh de emergencias para teetee evaluaci?n adicional. Prescriptions: New ondansetron 4 mg tablet,disintegrating 4 mg PO Q8H PRN (Reason: nausea and vomiting) Qty: 10 0RF No Action morphine 15 mg tablet 15 mg PO Q6H PRN (Reason: pain) 5 Days Qty: 10 0RF Rx Instructions: Partial Fill upon patient request. Referrals: Vivien Morales MD [Primary Care Provider] - Print Language: Bhutanese
[2023-01-15 14:48] LABS: MANUAL DIFF FLAG NO
[2023-01-15 14:51] LABS: Basophils Absolute Auto 0.1 X10*3/uL (0.0-0.2); Basophils Percent Auto 0.4 % (0-2); Eosinophils Absolute Auto 0.1 X10*3/uL (0.0-0.4); Imm Gran Abs Auto 0.06 X10*3/uL (0.00-0.03); Imm Gran Pct Auto 0.5 % (0.0-0.4); Lymphocytes Absolute Auto 1.3 X10*3/uL (1.2-4.9); Lymphocytes Percent Auto 10.3 % (20-40); Mean Corpuscular HGB Conc 32.4 g/dl (31.0-35.0); Mean Corpuscular Hemoglobin 31.1 pg (27.0-33.0); Mean Corpuscular Volume 95.9 fL (80.0-98.0); Mean Platelet Volume 8.7 fL (9.4-12.3); Monocytes Absolute Auto 0.8 X10*3/uL (0.1-1.2); Monocytes Percent Auto 6.6 % (2-11); Neutrophils Absolute Auto 9.9 x10*3/uL (2.0-8.3); Neutrophils Percent Auto 81.2 % (45-73); Platelet Count 306 X10*3/uL (160-400); Red Blood Count 3.86 X10*6/uL (4.20-5.50); White Blood Count 12.2 X10*3/uL (4.8-10.8)
[2023-01-15 15:00] LABS: IDNOW Serial# BCCEAD1C
[2023-01-15 15:01] LABS: COVID-19 Test Negative (Negative)
[2023-01-15 15:08] LABS: Alanine Aminotransferase 25 U/L (0-31); Albumin Level 3.2 g/dL (3.5-5.0); Alkaline Phosphatase 139 U/L (39-117); Anion Gap 13 (12-20); Aspartate Amino Transferase 16 U/L (5-31); Bilirubin Direct 0.3 mg/dL (0.0-0.5); Bilirubin Total 1.4 mg/dL (0.0-1.0); Blood Urea Nitrogen 21 mg/dL (9-16); Calcium 8.9 mg/dL (8.4-10.2); Carbon Dioxide 27 mmol/L (22-29); Chloride 108 mmol/L (96-108); Creatinine Clr Calc Pharmacy 61.2; Estimated Glomerular Filt Rate > 60; Glucose Random 74 mg/dL (60-115); Lipase 11 U/L (8-78); Magnesium 1.8 mg/dL (1.6-2.6); Potassium 3.9 mmol/L (3.3-5.1); Sodium 144 mmol/L (135-145); Total Protein 5.6 g/dL (6.5-8.0)
[2023-01-15] MEDS: ondansetron HCL 4 MG/2 ML VIAL IVPUSH (15:52)
[2023-01-15] MEDS: 0.9 % Sodium Chloride 1,000 ML 999 ML IVCONT (15:53)
== END 2023-01-15 17:08 | disposition home or self-care (01) ==
PROVIDERS: Physician Assistant; Emergency Provider Emergency Medicine; PCP Family Medicine
DX: K52.9 Noninfective gastroenteritis and colitis, unspecified (principal); Z20.822 Contact with and (suspected) exposure to COVID-19
CPT/HCPCS: 74176; 80048; 80076; 83690; 83735; 85025; 87635; 96361; 96374; 99284; J2405

== ENCOUNTER 2023-01-16 06:55 | Outpatient (REF) | payer OTHER, SELFPAY ==
--- NOTE | ~2023-01-16 | XR_ITS ---
EXAMINATION: XR WRIST, RIGHT CLINICAL INFORMATION: Pain right wrist COMPARISON: 01/16/2023 TECHNIQUE: PA, lateral, and oblique views of the right wrist. FINDINGS: There is a distal radial impacted fracture without displacement. There is minimal dorsal angulation. Previously seen ulnar side process fracture is not evident on this exam. There is diffuse osteopenia. The soft tissues are normal. XR/XR wrist RT min 3V IMPRESSION: 1. Impacted distal radial fracture with minimal dorsal angulation. 2. Previously seen ulnar styloid process fracture is not evident on this exam. 3. There is diffuse osteopenia.
== END 2023-01-16 06:56 | disposition home or self-care (01) ==
LOC: HO.HOSX 06:55
PROVIDERS: Visit Provider Physician Assistant
DX: S52.501A Unspecified fracture of the lower end of right radius, initial encounter for closed fracture (principal)
CPT/HCPCS: 25600; 29085; 73110; 99202

== ENCOUNTER 2023-01-21 10:23 | Outpatient (REF) | payer OTHER, SELFPAY ==
--- NOTE | ~2023-01-21 | XR_ITS ---
EXAMINATION: XR WRIST, RIGHT CLINICAL INFORMATION: Pain in right wrist. COMPARISON: None available. TECHNIQUE: PA, lateral, and oblique views of the right wrist. FINDINGS: Impacted transverse distal radius fracture redemonstrated. Alignment unchanged with dorsal tilt of the distal fragment. Minimal callus formation noted. Ulnar styloid fracture faintly visualized Minimal chondrocalcinosis noted between the lunate and triquetrum unchanged. XR/XR wrist RT min 3V IMPRESSION: Healing distal radius fracture and ulnar styloid fracture unchanged.
== END 2023-01-21 10:24 | disposition home or self-care (01) ==
LOC: HO.HOSX 10:23
PROVIDERS: Visit Provider Physician Assistant
DX: S52.501A Unspecified fracture of the lower end of right radius, initial encounter for closed fracture (principal)
CPT/HCPCS: 29085; 73110

== ENCOUNTER → 2023-01-25 13:08 | Outpatient (BNVA) | payer OTHER, SELFPAY | PROVIDERS: PCP Family Medicine; Visit Provider Physician Assistant ==

== ENCOUNTER 2023-01-28 18:35 | Inpatient (IN) | payer OTHER, SELFPAY ==
--- NOTE | ~2023-01-28 | CT_ITS ---
EXAMINATION: CT ABDOMEN AND PELVIS WITHOUT CONTRAST CLINICAL INFORMATION: Bright red blood in stool. Colitis question COMPARISON: CT abdomen and pelvis 01/15/2023 TECHNIQUE: Multidetector volumetric imaging was performed from the superior aspect of the liver through the pubic symphysis. Sagittal and coronal reformatted images were obtained on the technologist's workstation. This CT examination was performed using dose optimization techniques as appropriate, variously including the following: *Automated exposure control *Adjustment of mA and/or kV according to patient size (this includes techniques or standardized protocols for targeted exams where dose is matched to indication/reason for exam; i.e. extremities or head) *Use of iterative reconstruction technique DLP: 711 mGy-cm FINDINGS: LUNG BASES: There is dependent bibasilar atelectasis. The heart size is normal. LIVER, GALLBLADDER, AND BILIARY TREE: The liver is normal in size, shape, and attenuation. No focal hepatic lesion or biliary ductal dilatation is present. The gallbladder has been surgically removed. PANCREAS: The pancreas is atrophic. SPLEEN: Unremarkable. ADRENAL GLANDS: Unremarkable. KIDNEYS AND URETERS: The kidneys are normal in size, shape, and attenuation. No hydronephrosis, hydroureter, or calculi seen. There is mild bilateral perinephric stranding.. BLADDER: Unremarkable. GASTROINTESTINAL TRACT: There are postsurgical changes related to gastric bypass. The small bowel loops are normal caliber. There is scattered stool and gas seen in the colon without distention. There is no mural thickening or pericolic fat stranding. Appendix is normal caliber. ABDOMINAL WALL: There are surgical ashely along the anterior abdominal wall. No evidence of hernia. LYMPH NODES: Normal. VASCULAR: Unremarkable. PELVIC VISCERA: The uterus is anteverted and appears unremarkable. There is no free fluid. OSSEOUS STRUCTURES: No aggressive lytic or sclerotic process seen. CT/CT abdomen pelvis wo IV con IMPRESSION: 1. No acute intra-abdominal process seen. 2. 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 3. Mild constipation. Fleischner guidelines were followed.
[2023-01-28 19:01] VITALS: BP 159/67; PULSE 79; RESP 18; O2SAT 95; BMI 46.5
[2023-01-28 19:05] VITALS: TEMP 37.1
--- NOTE | 2023-01-28 19:05 | ED_ITS ---
HPI - General Adult General Chief complaint: General Medical Stated complaint: vomiting blood in stool Time Seen by Provider: 01/28/23 22:11 Related Data Home Medications Medication Instructions Recorded Confirmed albuterol sulfate 90 mcg/actuation 2 puff inhalation Q4-6H PRN Dyspnea 01/29/23 01/29/23 aerosol inhaler (Ventolin HFA) ascorbic acid (vitamin C) 250 mg 125 mg PO QAM 01/29/23 01/29/23 tablet ascorbic acid (vitamin C) 250 mg 125 mg PO QAM 01/29/23 01/29/23 tablet atorvastatin 10 mg tablet 10 mg PO QPM 01/29/23 01/29/23 bupropion HCl 150 mg 24 hr tablet, 150 mg PO QAM 01/29/23 01/29/23 extended release chlorthalidone 25 mg tablet 25 mg PO QAM 01/29/23 01/29/23 cholecalciferol (vitamin D3) 25 25 mcg PO QPM 01/29/23 01/29/23 mcg (1,000 unit) tablet doxepin 10 mg capsule 10 mg PO BEDTIME insomnia 01/29/23 01/29/23 duloxetine 60 mg capsule,delayed 60 mg PO DAILY 01/29/23 01/29/23 release fluticasone propionate 50 1 spray intranasal DAILY 01/29/23 01/29/23 mcg/actuation nasal spray,suspension lamotrigine 200 mg tablet 200 mg PO BEDTIME 01/29/23 01/29/23 loratadine 10 mg tablet 10 mg PO DAILY PRN Allergy Symptoms 01/29/23 01/29/23 losartan 50 mg tablet 50 mg PO QAM 01/29/23 01/29/23 montelukast 10 mg tablet 10 mg PO QPM 01/29/23 01/29/23 morphine 15 mg immediate release 15 mg PO Q6H PRN pain 01/29/23 01/29/23 tablet ondansetron 4 mg disintegrating 4 mg PO Q8H PRN nausea/vomiting 01/29/23 01/29/23 tablet ramelteon 8 mg tablet 8 mg PO BEDTIME 01/29/23 01/29/23 tramadol 37.5 mg-acetaminophen 325 1 tab PO Q6H PRN Pain, Severe 01/29/23 01/29/23 mg tablet Allergies Allergy/AdvReac Type Severity Reaction Status Date / Time lisinopril Allergy Cough Verified 01/28/23 19:05 [facility] Past Medical History Medical History (Updated 02/08/23 @ 00:02 by Alexis Lacey) Essential hypertension GI bleed Mixed hyperlipidemia Mood disorder Social History Social History Household Members: None Housing: Apartment Do you presently have visiting nurse or other home services: Yes Alcohol intake: never Patient Tobacco Use Status: Never used Tobacco service: No Current occupational status: disabled Physical Exam ED Vital Signs: Vital Signs - 24 hr 01/28/23 19:01 Pulse Rate 79 Respiratory Rate 18 Blood Pressure 159/67 H Pulse Oximetry 95 Oxygen Delivery Method Room Air BMI result Body Mass Index 46.5 Course Course Course Narrative: RME: 77 yold female presents to the ED for vomiting, lower abdominal cramping, and bright red blood in stool. Patient daughter denies black stool. Patient denies history of anemia. Denies history of blood transfusions. Medications Administered Discontinued Medications Generic Name Dose Route Start Last Admin Trade Name Yuniel PRN Reason Stop Dose Admin Ascorbic Acid 125 mg 01/29/23 09:00 01/31/23 09:04 Ascorbic Acid 250 Mg Tablet PO 125 mg DAILY ELISABETH Administration Ascorbic Acid 125 mg 01/29/23 09:00 01/31/23 09:04 Ascorbic Acid 250 Mg Tablet PO 125 mg DAILY ELISABETH Administration Atorvastatin Calcium 10 mg 01/29/23 21:00 01/30/23 20:04 Atorvastatin Calcium 10 Mg Tablet PO 10 mg BEDTIME ELISABETH Administration Bisacodyl 10 mg 01/29/23 16:00 01/29/23 16:51 Bisacodyl 5 Mg Tablet.Dr PO 01/29/23 16:01 10 mg ONCE ONE Administration Bupropion HCl 150 mg 01/29/23 09:00 01/31/23 09:03 Bupropion Hcl Xl 150 Mg Tab.Er.24h PO 150 mg DAILY ELISABETH Administration Doxepin HCl 10 mg 01/29/23 21:00 01/30/23 20:05 Doxepin Hcl 10 Mg Capsule PO 10 mg BEDTIME ELISABETH Administration Fluticasone Propionate 1 spray 01/29/23 09:00 01/31/23 09:05 Fluticasone Propionate Nasal 16 Gm [place] NOSTRIL-B 1 spray DAILY ELISABETH Administration Hydrochlorothiazide 25 mg 01/29/23 09:00 01/31/23 09:03 Hydrochlorothiazide 25 Mg Tablet PO 25 mg DAILY ELISABETH Administration Sodium Chloride 1,000 mls @ 999 mls/hr 01/28/23 22:56 01/29/23 02:58 Ns IV 01/28/23 23:56 Infused .Q1H1M ONE Infusion Lamotrigine 200 mg 01/29/23 21:00 01/30/23 20:04 Lamotrigine 100 Mg Tablet PO 200 mg BEDTIME ELISABETH Administration Losartan Potassium 50 mg 01/29/23 09:00 01/31/23 09:03 Losartan Potassium 50 Mg Tablet PO 50 mg DAILY ELISABETH Administration Protocol Montelukast Sodium 10 mg 01/29/23 17:00 01/30/23 20:04 Montelukast Sodium 10 Mg Tablet PO 10 mg DAILY@1700 [facility] Administration Pantoprazole Sodium 80 mg 01/28/23 22:55 01/28/23 23:31 Pantoprazole Sodium 40 Mg/10 Ml Vial IVPUSH 01/28/23 22:56 80 mg ONCE ONE Administration Polyethylene Glycol/Electrolytes 4,000 ml 01/29/23 19:00 01/29/23 19:17 Peg 3350/Na Sulf,Bicarb,Cl/Kcl 4,000 Ml Soln.Recon PO 01/29/23 19:01 4,000 ml ONCE ONE Administration Sodium Chloride 3 ml 01/29/23 00:00 01/31/23 09:04 0.9 % Sodium Chloride Flush 3 Ml Syringe IVFLUSH 3 ml QSHIFT [facility] Administration Vitamin D 25 mcg 01/29/23 17:00 01/30/23 20:04 Cholecalciferol (Vitamin D3) 25 Mcg Tablet PO 25 mcg DAILY@1700 [facility] Administration Medical Decision Making Lab Data 01/30/23 11:14 01/29/23 05:31 Labs: Lab Results 01/28/23 01/28/23 01/28/23 Range/Units 19:41 19:41 19:41 WBC 9.8 (4.8-10.8) X10*3/uL RBC 4.34 (4.20-5.50) X10*6/uL Hgb 13.4 (12.0-16.0) g/dl Hct 41.0 (37.0-47.0) % MCV 94.5 (80.0-98.0) fL MCH 30.9 (27.0-33.0) pg MCHC 32.7 (31.0-35.0) g/dl RDW 13.8 (11.0-16.0) % Plt Count 450 H (160-400) X10*3/uL MPV 9.5 (9.4-12.3) fL Immature Gran % (Auto) 0.5 H (0.0-0.4) % Neut % (Auto) 77.1 H (45-73) % Lymph % (Auto) 13.8 L (20-40) % [place] % (Auto) 7.2 (2-11) % Eos % (Auto) 0.8 (0-4) % Baso % (Auto) 0.6 (0-2) % Lymph # (Auto) 1.4 (1.2-4.9) X10*3/uL [place] # (Auto) 0.7 (0.1-1.2) X10*3/uL Eos # (Auto) 0.1 (0.0-0.4) X10*3/uL Baso # (Auto) 0.1 (0.0-0.2) X10*3/uL Abs Immat Gran (auto) 0.05 H (0.00-0.03) X10*3/uL Absolute Neuts (auto) 7.5 (2.0-8.3) x10*3/uL Absolute Nucleated RBC 0.000 (0.0-0.012) X10*3/uL Nucleated RBC % (auto) 0.0 (0.0-0.2) /100WBC PT 10.9 (10.0-13.1) SEC INR 1.0 (0.9-1.1) APTT 31.1 (26.0-36.4) SEC Sodium 140 (135-145) mmol/L Potassium 3.8 (3.3-5.1) mmol/L Chloride 106 (96-108) mmol/L Carbon Dioxide 24 (22-29) mmol/L Anion Gap 14 (12-20) BUN 21 H (9-16) mg/dL Creatinine 0.79 (0.5-1.4) mg/dL Estim Creat Clear Calc 55.0 Estimated GFR > 60 Random Glucose 102 (60-115) mg/dL Calcium 9.4 (8.4-10.2) mg/dL Total Bilirubin 1.0 (0.0-1.0) mg/dL AST 14 (5-31) U/L ALT 18 (0-31) U/L Alkaline Phosphatase 185 H (39-117) U/L Total Protein 6.0 L (6.5-8.0) g/dL Albumin 3.4 L (3.5-5.0) g/dL Stool Occult Blood (NEGATIVE) Influenza Type A (PCR) (Negative) Influenza Type B (PCR) (Negative) RSV RNA Qual (PCR) (Negative) SARS-CoV-2 RNA (RT-PCR) (Negative) 01/28/23 01/28/23 Range/Units 19:41 22:39 WBC (4.8-10.8) X10*3/uL RBC (4.20-5.50) X10*6/uL Hgb (12.0-16.0) g/dl Hct (37.0-47.0) % MCV (80.0-98.0) fL MCH (27.0-33.0) pg MCHC (31.0-35.0) g/dl RDW (11.0-16.0) % Plt Count (160-400) X10*3/uL MPV (9.4-12.3) fL Immature Gran % (Auto) (0.0-0.4) % Neut % (Auto) (45-73) % Lymph % (Auto) (20-40) % [place] % (Auto) (2-11) % Eos % (Auto) (0-4) % Baso % (Auto) (0-2) % Lymph # (Auto) (1.2-4.9) X10*3/uL [place] # (Auto) (0.1-1.2) X10*3/uL Eos # (Auto) (0.0-0.4) X10*3/uL Baso # (Auto) (0.0-0.2) X10*3/uL Abs Immat Gran (auto) (0.00-0.03) X10*3/uL Absolute Neuts (auto) (2.0-8.3) x10*3/uL Absolute Nucleated RBC (0.0-0.012) X10*3/uL Nucleated RBC % (auto) (0.0-0.2) /100WBC PT (10.0-13.1) SEC INR (0.9-1.1) APTT (26.0-36.4) SEC Sodium (135-145) mmol/L Potassium (3.3-5.1) mmol/L Chloride (96-108) mmol/L Carbon Dioxide (22-29) mmol/L Anion Gap (12-20) BUN (9-16) mg/dL Creatinine (0.5-1.4) mg/dL Estim Creat Clear Calc Estimated GFR Random Glucose (60-115) mg/dL Calcium (8.4-10.2) mg/dL Total Bilirubin (0.0-1.0) mg/dL AST (5-31) U/L ALT (0-31) U/L Alkaline Phosphatase (39-117) U/L Total Protein (6.5-8.0) g/dL Albumin (3.5-5.0) g/dL Stool Occult Blood POSITIVE (NEGATIVE) Influenza Type A (PCR) NEGATIVE (Negative) Influenza Type B (PCR) NEGATIVE (Negative) RSV RNA Qual (PCR) NEGATIVE (Negative) SARS-CoV-2 RNA (RT-PCR) NEGATIVE (Negative) Discharge Plan Discharge Clinical Impression: Colitis Patient Disposition: Admitted As Inpatient Interventions: Admission Worksheet (ED) Last Done: 01/29/23 08:38 Discharge Date/Time: 01/29/23 08:57
[2023-01-28 19:47] LABS: MANUAL DIFF FLAG NO
[2023-01-28 19:52] LABS: Basophils Absolute Auto 0.1 X10*3/uL (0.0-0.2); Basophils Percent Auto 0.6 % (0-2); Eosinophils Absolute Auto 0.1 X10*3/uL (0.0-0.4); Eosinophils Percent Auto 0.8 % (0-4); Hemoglobin 13.4 g/dl (12.0-16.0); Imm Gran Abs Auto 0.05 X10*3/uL (0.00-0.03); Imm Gran Pct Auto 0.5 % (0.0-0.4); Lymphocytes Absolute Auto 1.4 X10*3/uL (1.2-4.9); Lymphocytes Percent Auto 13.8 % (20-40); Mean Corpuscular HGB Conc 32.7 g/dl (31.0-35.0); Mean Corpuscular Hemoglobin 30.9 pg (27.0-33.0); Mean Corpuscular Volume 94.5 fL (80.0-98.0); Mean Platelet Volume 9.5 fL (9.4-12.3); Monocytes Absolute Auto 0.7 X10*3/uL (0.1-1.2); Monocytes Percent Auto 7.2 % (2-11); Neutrophils Absolute Auto 7.5 x10*3/uL (2.0-8.3); Neutrophils Percent Auto 77.1 % (45-73); Platelet Count 450 X10*3/uL (160-400); Red Blood Count 4.34 X10*6/uL (4.20-5.50); Red Cell Distribution Width 13.8 % (11.0-16.0); White Blood Count 9.8 X10*3/uL (4.8-10.8)
[2023-01-28 19:53] LABS: Prothrombin Time 10.9 SEC (10.0-13.1)
[2023-01-28 19:56] LABS: Partial Thromboplastin Time 31.1 SEC (26.0-36.4)
[2023-01-28 20:09] LABS: Alanine Aminotransferase 18 U/L (0-31); Albumin Level 3.4 g/dL (3.5-5.0); Alkaline Phosphatase 185 U/L (39-117); Anion Gap 14 (12-20); Aspartate Amino Transferase 14 U/L (5-31); Blood Urea Nitrogen 21 mg/dL (9-16); Calcium 9.4 mg/dL (8.4-10.2); Carbon Dioxide 24 mmol/L (22-29); Chloride 106 mmol/L (96-108); Estimated Glomerular Filt Rate > 60; Glucose Random 102 mg/dL (60-115); Potassium 3.8 mmol/L (3.3-5.1); Sodium 140 mmol/L (135-145)
[2023-01-28 20:53] LABS: Influenza A PCR NEGATIVE (Negative); Influenza B PCR NEGATIVE (Negative); Resp Syncy Virus RNA Qual PCR NEGATIVE (Negative); SARS COV2 PCR INHOUSE NEGATIVE (Negative)
--- NOTE | 2023-01-28 22:38 | ED_ITS ---
HPI - General Adult General Chief complaint: General Medical Stated complaint: vomiting blood in stool Time Seen by Provider: 01/28/23 22:11 History of Present Illness HPI narrative: Patient is a 77-year-old female baseline not on blood thinners. Presents today with having light red blood per rectum that is been ongoing for 2 days. No history of similar symptoms. No history of recent colonoscopy. Not on blood thinners. No fever no chills. Positive mild nausea. Positive decreased p.o. intake. Patient is from home. No coughing or congestion or upper respiratory symptoms. No diaphoresis. Mild abdominal cramping. Related Data Allergies Allergy/AdvReac Type Severity Reaction Status Date / Time lisinopril Allergy Cough Verified 01/28/23 19:05 Review of Systems Review of Systems: No fever no chills no diaphoresis Yes all other systems are reviewed and are negative FOR[facility]LY [facility], [facility] Past Medical History Attestation statement: The following information was validated with the patient. Social History Social History Advance Directives: No Advance Directives Information Provided: No Physical Exam ED Vital Signs: Vital Signs - 24 hr 01/28/23 19:01 01/28/23 19:05 Temperature 98.7 F Pulse Rate 79 Respiratory Rate 18 Blood Pressure 159/67 H Pulse Oximetry 95 Oxygen Delivery Method Room Air BMI result Body Mass Index 46.5 Appearance: Alert. Oriented X3. No acute distress. Eyes: Pupils equal, round and reactive to light. ENT: Pharynx normal. Neck: Normal inspection. Neck supple. No lymph nodes noted. No crepitus CVS: Normal heart rate and rhythm. Pulses normal. Normal S1 and S2 Respiratory: No respiratory distress. Breath sounds normal. No Wheezing. No rales Abdomen: Soft and nontender. No rigidity. No distention. good BS x4 Rectal exam done with tech present positive brown stool Skin: Skin warm and dry. Normal skin color. Normal skin turgor. Extremities: No lower extremity edema. Neurovascular intact to all extremities. No Lacerations. No Rash Neuro: Oriented X 3. No motor deficit. No sensory deficit. Moving all extermities. No slurred speech Medical Decision Making Medical Decision Making MDM Narrative: Positive bright red blood mixed with stool question secondary to AV malformation versus diverticular bleed versus colitis patient's CT scan of the abdomen is grossly negative for acute obstruction abscess perforation. Patient's hemoglobin is 13. Not on blood thinners. However patient is 77 years old. Will discuss with hospitalist team about observing overnight serial crit. Patient no distress. Abdominal exam is soft nontender. Patient is flu COVID RSV are negative. Differential Diagnosis Differential Diagnoses: The differential diagnosis associated with the presentation includes Colitis, hemorrhoids, av malformation, diverticular bleed, colonic mass Consult Healthcare Provider Management of the patient was discussed with: Hospitalist Lab Data MDM Lab Attestation statement: I reviewed the patient's lab results. 01/28/23 19:41 01/28/23 19:41 Labs: Lab Results 01/28/23 01/28/23 01/28/23 Range/Units 19:41 19:41 19:41 WBC 9.8 (4.8-10.8) X10*3/uL RBC 4.34 (4.20-5.50) X10*6/uL Hgb 13.4 (12.0-16.0) g/dl Hct 41.0 (37.0-47.0) % MCV 94.5 (80.0-98.0) fL MCH 30.9 (27.0-33.0) pg MCHC 32.7 (31.0-35.0) g/dl RDW 13.8 (11.0-16.0) % Plt Count 450 H (160-400) X10*3/uL MPV 9.5 (9.4-12.3) fL Immature Gran % (Auto) 0.5 H (0.0-0.4) % Neut % (Auto) 77.1 H (45-73) % Lymph % (Auto) 13.8 L (20-40) % [place] % (Auto) 7.2 (2-11) % Eos % (Auto) 0.8 (0-4) % Baso % (Auto) 0.6 (0-2) % Lymph # (Auto) 1.4 (1.2-4.9) X10*3/uL [place] # (Auto) 0.7 (0.1-1.2) X10*3/uL Eos # (Auto) 0.1 (0.0-0.4) X10*3/uL Baso # (Auto) 0.1 (0.0-0.2) X10*3/uL Abs Immat Gran (auto) 0.05 H (0.00-0.03) X10*3/uL Absolute Neuts (auto) 7.5 (2.0-8.3) x10*3/uL Absolute Nucleated RBC 0.000 (0.0-0.012) X10*3/uL Nucleated RBC % (auto) 0.0 (0.0-0.2) /100WBC PT 10.9 (10.0-13.1) SEC INR 1.0 (0.9-1.1) APTT 31.1 (26.0-36.4) SEC Sodium 140 (135-145) mmol/L Potassium 3.8 (3.3-5.1) mmol/L Chloride 106 (96-108) mmol/L Carbon Dioxide 24 (22-29) mmol/L Anion Gap 14 (12-20) BUN 21 H (9-16) mg/dL Creatinine 0.79 (0.5-1.4) mg/dL Estim Creat Clear Calc 55.0 Estimated GFR > 60 Random Glucose 102 (60-115) mg/dL Calcium 9.4 (8.4-10.2) mg/dL Total Bilirubin 1.0 (0.0-1.0) mg/dL AST 14 (5-31) U/L ALT 18 (0-31) U/L Alkaline Phosphatase 185 H (39-117) U/L Total Protein 6.0 L (6.5-8.0) g/dL Albumin 3.4 L (3.5-5.0) g/dL Stool Occult Blood (NEGATIVE) Influenza Type A (PCR) (Negative) Influenza Type B (PCR) (Negative) RSV RNA Qual (PCR) (Negative) SARS-CoV-2 RNA (RT-PCR) (Negative) 01/28/23 01/28/23 Range/Units 19:41 22:39 WBC (4.8-10.8) X10*3/uL RBC (4.20-5.50) X10*6/uL Hgb (12.0-16.0) g/dl Hct (37.0-47.0) % MCV (80.0-98.0) fL MCH (27.0-33.0) pg MCHC (31.0-35.0) g/dl RDW (11.0-16.0) % Plt Count (160-400) X10*3/uL MPV (9.4-12.3) fL Immature Gran % (Auto) (0.0-0.4) % Neut % (Auto) (45-73) % Lymph % (Auto) (20-40) % [place] % (Auto) (2-11) % Eos % (Auto) (0-4) % Baso % (Auto) (0-2) % Lymph # (Auto) (1.2-4.9) X10*3/uL [place] # (Auto) (0.1-1.2) X10*3/uL Eos # (Auto) (0.0-0.4) X10*3/uL Baso # (Auto) (0.0-0.2) X10*3/uL Abs Immat Gran (auto) (0.00-0.03) X10*3/uL Absolute Neuts (auto) (2.0-8.3) x10*3/uL Absolute Nucleated RBC (0.0-0.012) X10*3/uL Nucleated RBC % (auto) (0.0-0.2) /100WBC PT (10.0-13.1) SEC INR (0.9-1.1) APTT (26.0-36.4) SEC Sodium (135-145) mmol/L Potassium (3.3-5.1) mmol/L Chloride (96-108) mmol/L Carbon Dioxide (22-29) mmol/L Anion Gap (12-20) BUN (9-16) mg/dL Creatinine (0.5-1.4) mg/dL Estim Creat Clear Calc Estimated GFR Random Glucose (60-115) mg/dL Calcium (8.4-10.2) mg/dL Total Bilirubin (0.0-1.0) mg/dL AST (5-31) U/L ALT (0-31) U/L Alkaline Phosphatase (39-117) U/L Total Protein (6.5-8.0) g/dL Albumin (3.5-5.0) g/dL Stool Occult Blood POSITIVE (NEGATIVE) Influenza Type A (PCR) NEGATIVE (Negative) Influenza Type B (PCR) NEGATIVE (Negative) RSV RNA Qual (PCR) NEGATIVE (Negative) SARS-CoV-2 RNA (RT-PCR) NEGATIVE (Negative) External Record Review No old records available Chronic Conditions Patient?s care impacted by: Hypertension Discharge Plan Discharge Clinical Impression: Colitis Patient Disposition: Admitted As Inpatient
[2023-01-28 22:43] LABS: OBS Int Ctl Valid YES; OBS1 POSITIVE (NEGATIVE)
--- NOTE | 2023-01-28 22:57 | P.HPHOSP_ITS ---
History of Present Illness Date of Service: 01/28/23 Chief Complaint: GI bleed This is a 77-year-old female with pertinent history of mood disorder, essential hypertension, gastroesophageal reflux disease, mixed hyperlipidemia who presents to the emergency department for evaluation of blood mixed with stool. Patient states she 1st noticed blood mixed with stool about 2 days prior to presentation. It is painless and has been happening every time she has a bowel movement. Has occasional epigastric abdominal discomfort. Last colonoscopy was 6-7 years ago which was apparently normal. Has had poor appetite on the day of presentation due to nausea. No fever, chills, chest discomfort, palpitations, shortness of breath, changes in urinary habits. In the emergency department, stool guaiac was positive. Review of Systems Constitutional: Constitutional: Reports lethargy Cardiovascular: Cardiovascular: Reports no additional cardiovascular complaint s Respiratory: Respiratory: Reports no additional respiratory complaints Gastrointestinal: Gastrointestinal: Reports melena Genitourinary: Genitourinary: Reports no additional female genitourinary complaints Neurologic: Reports system reviewed and no additional complaints, except as documented [facility] Medical History (Updated 01/28/23 @ 23:16 by Nina Fam MD) Essential hypertension GI bleed Mixed hyperlipidemia Mood disorder Pertinent family history: No history of CAD Social History Alcohol intake: never Smoked in Last 30 Days: No Use of substances other than those prescribed or required for medical reasons: No Advance Directives: No Advance Directives Information Provided: No Meds Allergies Allergy/AdvReac Type Severity Reaction Status Date / Time lisinopril Allergy Cough Verified 01/28/23 19:05 Active Medications: Current Medications Acetaminophen (Acetaminophen 325 Mg Tablet) 650 mg PO Q6H PRN PRN Reason: Pain, Mild (Pain Scale 1-3) Sodium Chloride (Ns) 1,000 mls @ 999 mls/hr IV .Q1H1M ONE Stop: 01/28/23 23:56 Melatonin (Melatonin 3 Mg Tablet) 6 mg PO BEDTIME PRN PRN Reason: Insomnia Ondansetron HCl (Ondansetron Hcl 4 Mg/2 Ml Vial) 4 mg IVPUSH Q8H PRN PRN Reason: Nausea and Vomiting Pantoprazole Sodium (Pantoprazole Sodium 40 Mg/10 Ml Vial) 80 mg IVPUSH ONCE ONE Stop: 01/28/23 22:56 Sodium Chloride (0.9 % Sodium Chloride Flush 3 Ml Syringe) 3 ml IVFLUSH QSHIFT ELISABETH Physical Exam Vital Signs and Narrative: Vital Signs: Last Vital Signs Temp 98.7 F 01/28/23 19:05 Pulse 79 01/28/23 19:01 Resp 18 01/28/23 19:01 BP 159/67 H 01/28/23 19:01 Pulse Ox 95 01/28/23 19:01 O2 Del Method Room Air 01/28/23 19:01 BMI result Body Mass Index 46.5 Elderly female lying in bed in no distress Neck supple, no JVD Regular rate and rhythm, S1-S2 heard Regular breath sounds bilaterally, no wheezing or crackles appreciated Abdomen soft nontender, no guarding, no rigidity Patient is awake, alert and oriented to self, place, time and person ; no focal motor deficit Psych: Normal mood No pedal edema Results Labs 01/28/23 19:41 01/28/23 19:41 Labs: Laboratory Results - last 24 hr 01/28/23 01/28/23 01/28/23 19:41 19:41 19:41 MCV 94.5 MCH 30.9 MCHC 32.7 RDW 13.8 Plt Count 450 H MPV 9.5 Immature Gran % (Auto) 0.5 H Neut % (Auto) 77.1 H Lymph % (Auto) 13.8 L [place] % (Auto) 7.2 Eos % (Auto) 0.8 Baso % (Auto) 0.6 Lymph # (Auto) 1.4 [place] # (Auto) 0.7 Eos # (Auto) 0.1 Baso # (Auto) 0.1 Abs Immat Gran (auto) 0.05 H Absolute Neuts (auto) 7.5 Absolute Nucleated RBC 0.000 Nucleated RBC % (auto) 0.0 PT 10.9 INR 1.0 APTT 31.1 Anion Gap 14 Estim Creat Clear Calc 55.0 Estimated GFR > 60 Random Glucose 102 Calcium 9.4 Total Bilirubin 1.0 AST 14 ALT 18 Alkaline Phosphatase 185 H Total Protein 6.0 L Albumin 3.4 L Stool Occult Blood Influenza Type A (PCR) Influenza Type B (PCR) RSV RNA Qual (PCR) SARS-CoV-2 RNA (RT-PCR) 01/28/23 01/28/23 19:41 22:39 MCV MCH MCHC RDW Plt Count MPV Immature Gran % (Auto) Neut % (Auto) Lymph % (Auto) [place] % (Auto) Eos % (Auto) Baso % (Auto) Lymph # (Auto) [place] # (Auto) Eos # (Auto) Baso # (Auto) Abs Immat Gran (auto) Absolute Neuts (auto) Absolute Nucleated RBC Nucleated RBC % (auto) PT INR APTT Anion Gap Estim Creat Clear Calc Estimated GFR Random Glucose Calcium Total Bilirubin AST ALT Alkaline Phosphatase Total Protein Albumin Stool Occult Blood POSITIVE Influenza Type A (PCR) NEGATIVE Influenza Type B (PCR) NEGATIVE RSV RNA Qual (PCR) NEGATIVE SARS-CoV-2 RNA (RT-PCR) NEGATIVE Imaging Radiologist's Impressions: Impressions Abdomen/Pelvis CT 01/28/23 19:26 IMPRESSION: 1. No acute intra-abdominal process seen. 2. 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 3. Mild constipation. Fleischner guidelines were followed. Assessment and Plan (1) GI bleed: Status: Acute Plan This is a 77-year-old female with pertinent history of mood disorder, essential hypertension, gastroesophageal reflux disease, mixed hyperlipidemia who presents to the emergency department for evaluation of blood mixed with stool. #. Acute GI bleed: Will resuscitate with IV crystalloids. Protonix 80 mg IV x1. Consulting GI, appreciate assistance. Will keep patient NPO. Close monitor H&H #. Essential hypertension: Hold antihypertensives in the setting of GI bleed #. Mixed hyperlipidemia: On statin #. Mood disorder: Continue home mood stabilizers Med rec pending DVT prophylaxis: Mechanical Full code NPO Admit as inpatient and will require two night minimum hospital stay for close monitoring of H&H. Specialist consult pending Time Spent With Patient Time: Total time managing care of this patient today ____ minutes. Quality Stroke Does the patient have a stroke diagnosis?: No VTE Prior VTE?: No VTE Risk Level:: Medical - moderate - high VTE Device Contraindication: N/A - Device Ordered VTE Drug Contraindication: Treatment Not Indicated
[2023-01-28] MEDS: Pantoprazole Sodium 40 MG/10 ML VIAL 80 MG IVPUSH (23:31)
[2023-01-28] MEDS: 0.9 % Sodium Chloride 1,000 ML 999 ML IV (23:32)
[2023-01-28] MEDS: 0.9 % Sodium Chloride Flush 3 ML SYRINGE IVFLUSH (23:32)
[2023-01-29] VITALS (7 sets, daily range): BP systolic 134–145; BP diastolic 61–93; PULSE 70–81; RESP 16–18; TEMP 36.1–37; O2SAT 95–98
[2023-01-29 05:35] LABS: MANUAL DIFF FLAG NO
[2023-01-29 05:38] LABS: Basophils Absolute Auto 0.1 X10*3/uL (0.0-0.2); Basophils Percent Auto 0.5 % (0-2); Eosinophils Absolute Auto 0.1 X10*3/uL (0.0-0.4); Eosinophils Percent Auto 0.6 % (0-4); Hemoglobin 11.2 g/dl (12.0-16.0); Imm Gran Abs Auto 0.04 X10*3/uL (0.00-0.03); Imm Gran Pct Auto 0.4 % (0.0-0.4); Lymphocytes Absolute Auto 1.3 X10*3/uL (1.2-4.9); Lymphocytes Percent Auto 13.9 % (20-40); Mean Corpuscular HGB Conc 32.9 g/dl (31.0-35.0); Mean Corpuscular Hemoglobin 31.5 pg (27.0-33.0); Mean Corpuscular Volume 95.5 fL (80.0-98.0); Mean Platelet Volume 8.5 fL (9.4-12.3); Monocytes Absolute Auto 0.7 X10*3/uL (0.1-1.2); Monocytes Percent Auto 7.7 % (2-11); Neutrophils Absolute Auto 7.4 x10*3/uL (2.0-8.3); Neutrophils Percent Auto 76.9 % (45-73); Platelet Count 456 X10*3/uL (160-400); Red Blood Count 3.56 X10*6/uL (4.20-5.50); Red Cell Distribution Width 13.7 % (11.0-16.0); White Blood Count 9.6 X10*3/uL (4.8-10.8)
--- NOTE | 2023-01-29 05:44 | MHC.EDTECH ---
PT soiled with urine Pt given pericare. Pt bed linen changed. Pt given warm blankets and call bañuelos in reach. Pt states she is continent for urine except overnights where she is incont
[2023-01-29 05:55] LABS: Anion Gap 13 (12-20); Blood Urea Nitrogen 18 mg/dL (9-16); Calcium 8.8 mg/dL (8.4-10.2); Carbon Dioxide 25 mmol/L (22-29); Chloride 109 mmol/L (96-108); Estimated Glomerular Filt Rate > 60; Glucose Random 92 mg/dL (60-115); Potassium 3.7 mmol/L (3.3-5.1); Sodium 143 mmol/L (135-145)
--- NOTE | 2023-01-29 07:41 | HE.PHANOTE ---
PATIENT PRIMARY DR IS DR APODACA . DR GEORGIE SEQUEIRA IS HER PSYCHIATRIST . MED REC REVIEWED
--- NOTE | 2023-01-29 09:52 | MHC.CM.PN ---
CM spoke with Daughter/HOME @ [phone] and addressed IMM with her (original to be mailed to Home and a copy has been placed on the chart). Patient lives alone in an apartment and she required a rollator to assist with mobility. Patient receives 19 hours/week of [employer] and home resume said services is the goal. CM has initiated and will follow for dc planning. Patient has received covid vax and her PCP is Dr. Vivien Morales.
[2023-01-29] MEDS: buPROPion HCl XL 150 MG TAB.ER.24H PO (10:46)
[2023-01-29] MEDS: hydroCHLOROthiazide 25 MG TABLET PO (10:46)
[2023-01-29] MEDS: Ascorbic Acid 250 MG TABLET 125 MG PO ×2 (10:46)
[2023-01-29] MEDS: Losartan Potassium 50 MG TABLET PO (10:46)
--- NOTE | 2023-01-29 10:53 | HO.PM.IMPN ---
Subjective Subjective Date of Service: 01/30/23 Interval History: f/u on GIB, interval :no active bleed, HD stable Physical Exam Vital Signs: Vital Signs: Last Vital Signs Temp 97.5 F 01/29/23 09:45 Pulse 75 01/29/23 09:45 Resp 17 01/29/23 09:45 BP 141/63 H 01/29/23 09:45 Pulse Ox 95 01/29/23 09:45 O2 Del Method Room Air 01/29/23 09:45 BMI result Body Mass Index 46.5 Const: Other: General: AO X 3, no acute distress Resp: CTA bilateral CVS: S1,S2,RRR GI: +BS, NT, no distention, rectal exam defered Skin: No rash Neuro: motor grossly intact Psych: appropriate affect Objective Data Active Medications Acetaminophen (Acetaminophen 325 Mg Tablet) 650 mg PO Q6H PRN PRN Reason: Pain, Mild (Pain Scale 1-3) Albuterol Sulfate (Albuterol Sulfate 90 Mcg 8 Gm Inhaler) 2 puff INHALE Q4H PRN PRN Reason: Dyspnea Ascorbic Acid (Ascorbic Acid 250 Mg Tablet) 125 mg PO DAILY [facility] Last Admin: 01/29/23 10:46 Dose: 125 mg Documented By: KALEIGH-SOFCYNDEE Ascorbic Acid (Ascorbic Acid 250 Mg Tablet) 125 mg PO DAILY [facility] Last Admin: 01/29/23 10:46 Dose: 125 mg Documented By: KALEIGH-JOSE Atorvastatin Calcium (Atorvastatin Calcium 10 Mg Tablet) 10 mg PO BEDTIME [facility] Bupropion HCl (Bupropion Hcl Xl 150 Mg Tab.Er.24h) 150 mg PO DAILY [facility] Last Admin: 01/29/23 10:46 Dose: 150 mg Documented By: KALEIGH-JOSE Doxepin HCl (Doxepin Hcl 10 Mg Capsule) 10 mg PO BEDTIME [facility] Fluticasone Propionate (Fluticasone Propionate Nasal 16 Gm [place]) 1 spray NOSTRIL-B DAILY [facility] Last Admin: 01/29/23 10:46 Dose: Not Given Documented By: KALEIGH-JOSE Non-Admin Reason: Patient Refused Hydrochlorothiazide (Hydrochlorothiazide 25 Mg Tablet) 25 mg PO DAILY [facility] Last Admin: 01/29/23 10:46 Dose: 25 mg Documented By: KALEIGH-CHINAFA Lamotrigine (Lamotrigine 100 Mg Tablet) 200 mg PO BEDTIME [facility] Loratadine (Loratadine 10 Mg Tablet) 10 mg PO DAILY PRN PRN Reason: Allergy Symptoms Losartan Potassium (Losartan Potassium 50 Mg Tablet) 50 mg PO DAILY [facility]; Protocol Last Admin: 01/29/23 10:46 Dose: 50 mg Documented By: MICHAEL Melatonin (Melatonin 3 Mg Tablet) 6 mg PO BEDTIME PRN PRN Reason: Insomnia Montelukast Sodium (Montelukast Sodium 10 Mg Tablet) 10 mg PO DAILY@1700 [facility] Non-Formulary Medication (Ramelteon) 8 mg PO BEDTIME [facility] Non-Formulary Medication (Tramadol-Acetaminophen) 1 tab PO Q6H PRN PRN Reason: Pain, Severe Ondansetron HCl (Ondansetron Hcl 4 Mg/2 Ml Vial) 4 mg IVPUSH Q8H PRN PRN Reason: Nausea and Vomiting Ondansetron HCl (Ondansetron Odt 4 Mg Tab.Rapdis) 4 mg TRANSLINGU Q8H PRN PRN Reason: nausea/vomiting Pharmacy Consult (Consult Rx Perform Med Rec) 1 each MISCELLANE ONCE PRN PRN Reason: Consult order Sodium Chloride (0.9 % Sodium Chloride Flush 3 Ml Syringe) 3 ml IVFLUSH QSHIFT [facility] Last Admin: 01/29/23 07:28 Dose: Not Given Documented By: MICHAEL Non-Admin Reason: See Note Vitamin D (Cholecalciferol (Vitamin D3) 25 Mcg Tablet) 25 mcg PO DAILY@1700 [facility] Labs 01/29/23 05:31 01/29/23 05:31 Labs: Laboratory Results - last 24 hr 01/28/23 01/28/23 01/28/23 19:41 19:41 19:41 MCV 94.5 MCH 30.9 MCHC 32.7 RDW 13.8 Plt Count 450 H MPV 9.5 Immature Gran % (Auto) 0.5 H Neut % (Auto) 77.1 H Lymph % (Auto) 13.8 L [place] % (Auto) 7.2 Eos % (Auto) 0.8 Baso % (Auto) 0.6 Lymph # (Auto) 1.4 [place] # (Auto) 0.7 Eos # (Auto) 0.1 Baso # (Auto) 0.1 Abs Immat Gran (auto) 0.05 H Absolute Neuts (auto) 7.5 Absolute Nucleated RBC 0.000 Nucleated RBC % (auto) 0.0 PT 10.9 INR 1.0 APTT 31.1 Anion Gap 14 Estim Creat Clear Calc 55.0 Estimated GFR > 60 Random Glucose 102 Calcium 9.4 Total Bilirubin 1.0 AST 14 ALT 18 Alkaline Phosphatase 185 H Total Protein 6.0 L Albumin 3.4 L Stool Occult Blood Influenza Type A (PCR) Influenza Type B (PCR) RSV RNA Qual (PCR) SARS-CoV-2 RNA (RT-PCR) 01/28/23 01/28/23 01/29/23 19:41 22:39 05:31 MCV 95.5 MCH 31.5 MCHC 32.9 RDW 13.7 Plt Count 456 H MPV 8.5 L Immature Gran % (Auto) 0.4 Neut % (Auto) 76.9 H Lymph % (Auto) 13.9 L [place] % (Auto) 7.7 Eos % (Auto) 0.6 Baso % (Auto) 0.5 Lymph # (Auto) 1.3 [place] # (Auto) 0.7 Eos # (Auto) 0.1 Baso # (Auto) 0.1 Abs Immat Gran (auto) 0.04 H Absolute Neuts (auto) 7.4 Absolute Nucleated RBC 0.000 Nucleated RBC % (auto) 0.0 PT INR APTT Anion Gap Estim Creat Clear Calc Estimated GFR Random Glucose Calcium Total Bilirubin AST ALT Alkaline Phosphatase Total Protein Albumin Stool Occult Blood POSITIVE Influenza Type A (PCR) NEGATIVE Influenza Type B (PCR) NEGATIVE RSV RNA Qual (PCR) NEGATIVE SARS-CoV-2 RNA (RT-PCR) NEGATIVE 01/29/23 05:31 MCV MCH MCHC RDW Plt Count MPV Immature Gran % (Auto) Neut % (Auto) Lymph % (Auto) [place] % (Auto) Eos % (Auto) Baso % (Auto) Lymph # (Auto) [place] # (Auto) Eos # (Auto) Baso # (Auto) Abs Immat Gran (auto) Absolute Neuts (auto) Absolute Nucleated RBC Nucleated RBC % (auto) PT INR APTT Anion Gap 13 Estim Creat Clear Calc 58.0 Estimated GFR > 60 Random Glucose 92 Calcium 8.8 D Total Bilirubin AST ALT Alkaline Phosphatase Total Protein Albumin Stool Occult Blood Influenza Type A (PCR) Influenza Type B (PCR) RSV RNA Qual (PCR) SARS-CoV-2 RNA (RT-PCR) Assessment and Plan (1) GI bleed: Status: Acute Plan This is a 77-year-old female with pertinent history of mood disorder, essential hypertension, gastroesophageal reflux disease, mixed hyperlipidemia who presents to the emergency department for evaluation of blood mixed with stool. #. Acute GI bleed with mild acute blood loss anemia: - Protonix 80 mg IV x1. GI eval pending, follow H/H, clear diet if no procedure planned #. Essential hypertension: Hold antihypertensives in the setting of GI bleed #. Mixed hyperlipidemia: On statin #. Mood disorder: Continue home mood stabilizers DVT prophylaxis: Mechanical Full code NPO Need for inpatient: acute GI bleed, anemia needs further acute work up and treatment, frequent labs Time Spent With Patient Time: Total time managing care of this patient today ____ minutes. Quality Stroke Does the patient have a stroke diagnosis?: No VTE Prior VTE?: No VTE Risk Level:: Medical - moderate - high VTE Device Contraindication: N/A - Device Ordered VTE Drug Contraindication: Treatment Not Indicated
[2023-01-29] MEDS: bisacodyL 5 MG TABLET.DR 10 MG PO (16:51)
[2023-01-29] MEDS: Cholecalciferol (Vitamin D3) 25 MCG TABLET PO (16:51)
[2023-01-29] MEDS: Montelukast Sodium 10 MG TABLET PO (16:51)
[2023-01-29] MEDS: PEG 3350/Na Sulf,Bicarb,Cl/KCL 4,000 ML SOLN.RECON 4000 ML PO (19:17)
--- NOTE | 2023-01-29 19:20 | PM.GICN ---
History of Present Illness Data of Consult Service Date: 01/29/23 Requesting physician: Markel Lala Primary Care Provider: Vivien Morales MD HPI Reason for consult: rectal bleeding ?77-year-old female with history of mood disorder, essential hypertension, gastroesophageal reflux disease, mixed hyperlipidemia and gastric bypass with cholecystectomy who I am seeing for assessment for rectal bleeding. She noted several episodes of fresh blood mixed with stool for the last several days with some nausea. She denies abdominal pain, and no melena. No fever, chills, chest discomfort, palpitations, shortness of breath, changes in urinary habits labs with hgb 13 on admission now 11 g/dl. There is a strong FH of CRC noted in mother, aunt and brother. Her last colonoscopy was about 7 yrs ago and normal per her report. Review of Systems Review of Systems: Constitutional : No Weight loss, No Fever, No Chills ENT/Mouth : No sore throat, No Rhinorrhea Eyes: No Swelling, No Redness Cardiovascular : No Chest Pain, No SOB, No Edema Respiratory : No Cough, No Sputum, No Wheezing Gastrointestinal : see HPI Genitourinary : NO Dysuria, No Urinary Frequency, No Hematuria, No Urgency Musculoskeletal : No joint pain, No Myalgias, No Joint Swelling--cast on right forearm from fracture Skin : No Skin Lesions, No rash Neuro : No Weakness, No Numbness, No Dizziness, No Headache Psych : No Anxiety/Panic, No Depression Heme/Lymph: No Bruising, No Lymphadenopathy Endocrine : No Polyuria, No Polydipsia All other systems reviewed and are negative. [facility] Past Medical History Medical History (Updated 01/30/23 @ 10:12 by Sukumar Mak MD) Essential hypertension GI bleed Mixed hyperlipidemia Mood disorder Family History Pertinent family history: No history of CAD Social History Social History Household Members: None Housing: Apartment Do you presently have visiting nurse or other home services: Yes Alcohol intake: never Patient Tobacco Use Status: Never used Tobacco Smoked in Last 30 Days: No Use of substances other than those prescribed or required for medical reasons: No Currently Displaying Signs/Symptoms of Drug Intoxication Withdrawal: No Have you been hit, kicked, punched, or otherwise hurt by someone within the past year? If so, by whom?: No Do you feel safe in your current relationship?: No Current Relationship Is there a partner from a previous relationship who is making you feel unsafe now?: No Are you made to feel afraid or neglected: No Spiritual Healthcare Practices: Rastafari Advance Directives: No Advance Directives Information Provided: No Do you have thoughts of harming others: None Do you have a plan to hurt others: No Plan Recently lost weight without trying: Unsure Patient : No service: No Current occupational status: disabled Meds Allergies Allergy/AdvReac Type Severity Reaction Status Date / Time lisinopril Allergy Cough Verified 01/28/23 19:05 Active Medications: Current Medications Acetaminophen (Acetaminophen 325 Mg Tablet) 650 mg PO Q6H PRN PRN Reason: Pain, Mild (Pain Scale 1-3) Albuterol Sulfate (Albuterol Sulfate 90 Mcg 8 Gm Inhaler) 2 puff INHALE Q4H PRN PRN Reason: Dyspnea Ascorbic Acid (Ascorbic Acid 250 Mg Tablet) 125 mg PO DAILY [facility] Last Admin: 01/29/23 10:46 Dose: 125 mg Ascorbic Acid (Ascorbic Acid 250 Mg Tablet) 125 mg PO DAILY [facility] Last Admin: 01/29/23 10:46 Dose: 125 mg Atorvastatin Calcium (Atorvastatin Calcium 10 Mg Tablet) 10 mg PO BEDTIME ELISABETH Bupropion HCl (Bupropion Hcl Xl 150 Mg Tab.Er.24h) 150 mg PO DAILY [facility] Last Admin: 01/29/23 10:46 Dose: 150 mg Doxepin HCl (Doxepin Hcl 10 Mg Capsule) 10 mg PO BEDTIME [facility] Fluticasone Propionate (Fluticasone Propionate Nasal 16 Gm [place]) 1 spray NOSTRIL-B DAILY [facility] Last Admin: 01/29/23 10:46 Dose: Not Given Hydrochlorothiazide (Hydrochlorothiazide 25 Mg Tablet) 25 mg PO DAILY [facility] Last Admin: 01/29/23 10:46 Dose: 25 mg Lamotrigine (Lamotrigine 100 Mg Tablet) 200 mg PO BEDTIME [facility] Loratadine (Loratadine 10 Mg Tablet) 10 mg PO DAILY PRN PRN Reason: Allergy Symptoms Losartan Potassium (Losartan Potassium 50 Mg Tablet) 50 mg PO DAILY [facility]; Protocol Last Admin: 01/29/23 10:46 Dose: 50 mg Melatonin (Melatonin 3 Mg Tablet) 6 mg PO BEDTIME PRN PRN Reason: Insomnia Montelukast Sodium (Montelukast Sodium 10 Mg Tablet) 10 mg PO DAILY@1700 [facility] Last Admin: 01/29/23 16:51 Dose: 10 mg Non-Formulary Medication (Ramelteon) 8 mg PO BEDTIME [facility] Non-Formulary Medication (Tramadol-Acetaminophen) 1 tab PO Q6H PRN PRN Reason: Pain, Severe Ondansetron HCl (Ondansetron Hcl 4 Mg/2 Ml Vial) 4 mg IVPUSH Q8H PRN PRN Reason: Nausea and Vomiting Ondansetron HCl (Ondansetron Odt 4 Mg Tab.Rapdis) 4 mg TRANSLINGU Q8H PRN PRN Reason: nausea/vomiting Ondansetron HCl (Ondansetron Hcl 4 Mg/2 Ml Vial) 4 mg IVPUSH Q8H PRN PRN Reason: Nausea and Vomiting Pharmacy Consult (Consult Rx Perform Med Rec) 1 each MISCELLANE ONCE PRN PRN Reason: Consult order Sodium Chloride (0.9 % Sodium Chloride Flush 3 Ml Syringe) 3 ml IVFLUSH QSHIFT [facility] Last Admin: 01/29/23 13:18 Dose: Not Given Vitamin D (Cholecalciferol (Vitamin D3) 25 Mcg Tablet) 25 mcg PO DAILY@1700 [facility] Last Admin: 01/29/23 16:51 Dose: 25 mcg Home Medications Medication Instructions Recorded Confirmed Last Taken Type albuterol sulfate 90 mcg/actuation 2 puff inhalation Q4-6H PRN Dyspnea 01/29/23 01/29/23 Unknown History aerosol inhaler (Ventolin HFA) ascorbic acid (vitamin C) 250 mg 125 mg PO QAM 01/29/23 01/29/23 Unknown History tablet ascorbic acid (vitamin C) 250 mg 125 mg PO QAM 01/29/23 01/29/23 Unknown History tablet atorvastatin 10 mg tablet 10 mg PO QPM 01/29/23 01/29/23 Unknown History bupropion HCl 150 mg 24 hr tablet, 150 mg PO QAM 01/29/23 01/29/23 Unknown History extended release chlorthalidone 25 mg tablet 25 mg PO QAM 01/29/23 01/29/23 Unknown History cholecalciferol (vitamin D3) 25 25 mcg PO QPM 01/29/23 01/29/23 Unknown History mcg (1,000 unit) tablet doxepin 10 mg capsule 10 mg PO BEDTIME insomnia 01/29/23 01/29/23 Unknown History duloxetine 60 mg capsule,delayed 60 mg PO DAILY 01/29/23 01/29/23 Unknown History release fluticasone propionate 50 1 spray intranasal DAILY 01/29/23 01/29/23 Unknown History mcg/actuation nasal spray,suspension lamotrigine 200 mg tablet 200 mg PO BEDTIME 01/29/23 01/29/23 Unknown History loratadine 10 mg tablet 10 mg PO DAILY PRN Allergy Symptoms 01/29/23 01/29/23 Unknown History losartan 50 mg tablet 50 mg PO QAM 01/29/23 01/29/23 Unknown History montelukast 10 mg tablet 10 mg PO QPM 01/29/23 01/29/23 Unknown History morphine 15 mg immediate release 15 mg PO Q6H PRN pain 01/29/23 01/29/23 Unknown History tablet ondansetron 4 mg disintegrating 4 mg PO Q8H PRN nausea/vomiting 01/29/23 01/29/23 Unknown History tablet ramelteon 8 mg tablet 8 mg PO BEDTIME 01/29/23 01/29/23 Unknown History tramadol 37.5 mg-acetaminophen 325 1 tab PO Q6H PRN Pain, Severe 01/29/23 01/29/23 Unknown History mg tablet Physical Exam Vital Signs: Vital Signs: Last Vital Signs Temp 98.6 F 01/29/23 19:17 Pulse 76 01/29/23 19:17 Resp 17 01/29/23 19:17 BP 145/65 H 01/29/23 19:17 Pulse Ox 96 01/29/23 19:17 O2 Del Method Room Air 01/29/23 19:17 BMI result Body Mass Index 46.5 EXAM: GENERAL: The patient is obese, relaxed VITAL SIGNS:see workflow HEENT: Nonicteric sclerae, PERRLA, EOMI. Oropharynx clear. Moist mucous membranes. Conjunctivae appear well perfused. No thyroid mass. CHEST: Chest wall is nontender. HEART: Regular rate and rhythm without murmurs. LUNGS: Clear to auscultation bilaterally. ABDOMEN: Soft, positive bowel sounds, nontender, no organomegaly.no flank tenderness SKIN: No rash, no excessive bruising, petechiae, or purpura. NEUROLOGIC: Cranial nerves II-XII intact without motor/sensory deficit. psych-nml affect MS: cast on right forearm Results Labs 01/29/23 05:31 01/29/23 05:31 Labs: Short CBC 01/28/23 01/29/23 Range/Units 19:41 05:31 WBC 9.8 9.6 (4.8-10.8) X10*3/uL Hgb 13.4 11.2 L (12.0-16.0) g/dl Hct 41.0 34.0 L (37.0-47.0) % Plt Count 450 H 456 H (160-400) X10*3/uL BMP 01/28/23 01/29/23 19:41 05:31 Sodium 140 143 Potassium 3.8 3.7 Chloride 106 109 H Carbon Dioxide 24 25 BUN 21 H 18 H Creatinine 0.79 0.75 Calcium 9.4 8.8 D Liver Function 01/28/23 Range/Units 19:41 Total Bilirubin 1.0 (0.0-1.0) mg/dL AST 14 (5-31) U/L ALT 18 (0-31) U/L Alkaline Phosphatase 185 H (39-117) U/L Albumin 3.4 L (3.5-5.0) g/dL Assessment and Plan (1) GI bleed: Qualifiers: GI bleed type/associated pathology: anorectal hemorrhage Qualified Code(s): K62.5 - Hemorrhage of anus and rectum Status: Acute Plan 1/ Rectal bleeding with strong fh of crc in aunt, brother and mother. Need to r/o neoplasia, ddx; colitis, polyps, hemorrhoidal bleed PLAN; 1/ Colonoscopy tomorrow for further assessment --if neg then will consider an EGD. Time Spent With Patient Time: Total time managing care of this patient today ____ minutes. Procedures Date of Service Date of Service: 01/29/23
[2023-01-29] MEDS: lamoTRIgine 100 MG TABLET 200 MG PO (20:58)
[2023-01-29] MEDS: Atorvastatin Calcium 10 MG TABLET PO (20:58)
[2023-01-29] MEDS: Doxepin HCl 10 MG CAPSULE PO (20:58)
[2023-01-30] VITALS (12 sets, daily range): BP systolic 116–150; BP diastolic 44–68; PULSE 57–82; RESP 16–20; TEMP 36.1–36.9; O2SAT 94–97
[2023-01-30] MEDS: Losartan Potassium 50 MG TABLET PO (09:09)
[2023-01-30] MEDS: buPROPion HCl XL 150 MG TAB.ER.24H PO (09:09)
[2023-01-30] MEDS: hydroCHLOROthiazide 25 MG TABLET PO (09:09)
[2023-01-30] MEDS: Ascorbic Acid 250 MG TABLET 125 MG PO ×2 (09:09→09:10)
[2023-01-30] MEDS: 0.9 % Sodium Chloride Flush 3 ML SYRINGE IVFLUSH ×2 (09:10→20:05)
--- NOTE | 2023-01-30 11:05 | HO.PM.IMPN ---
Subjective Subjective Date of Service: 01/30/23 Interval History: f/u gib bleed no active bleed Physical Exam Vital Signs: Vital Signs: Last Vital Signs Temp 98.4 F 01/30/23 10:58 Pulse 75 01/30/23 10:58 Resp 18 01/30/23 10:58 BP 137/60 01/30/23 10:58 Pulse Ox 95 01/30/23 10:58 O2 Del Method Room Air 01/30/23 10:58 BMI result Body Mass Index 46.5 Const: Other: General: AO X 3, no acute distress Resp: CTA bilateral CVS: S1,S2,RRR GI: +BS, NT, no distention Skin: No rash Neuro: motor grossly intact Psych: appropriate affect Objective Data Active Medications Acetaminophen (Acetaminophen 325 Mg Tablet) 650 mg PO Q6H PRN PRN Reason: Pain, Mild (Pain Scale 1-3) Albuterol Sulfate (Albuterol Sulfate 90 Mcg 8 Gm Inhaler) 2 puff INHALE Q4H PRN PRN Reason: Dyspnea Ascorbic Acid (Ascorbic Acid 250 Mg Tablet) 125 mg PO DAILY [facility] Last Admin: 01/30/23 09:09 Dose: 125 mg Documented By: MISTY Ascorbic Acid (Ascorbic Acid 250 Mg Tablet) 125 mg PO DAILY [facility] Last Admin: 01/30/23 09:10 Dose: 125 mg Documented By: MISTY Atorvastatin Calcium (Atorvastatin Calcium 10 Mg Tablet) 10 mg PO BEDTIME [facility] Last Admin: 01/29/23 20:58 Dose: 10 mg Documented By: MARGARITA Bupropion HCl (Bupropion Hcl Xl 150 Mg Tab.Er.24h) 150 mg PO DAILY [facility] Last Admin: 01/30/23 09:09 Dose: 150 mg Documented By: MISTY Doxepin HCl (Doxepin Hcl 10 Mg Capsule) 10 mg PO BEDTIME [facility] Last Admin: 01/29/23 20:58 Dose: 10 mg Documented By: MARGARITA Fluticasone Propionate (Fluticasone Propionate Nasal 16 Gm [place]) 1 spray NOSTRIL-B DAILY [facility] Last Admin: 01/30/23 10:12 Dose: Not Given Documented By: MISTY Non-Admin Reason: Patient Refused Hydrochlorothiazide (Hydrochlorothiazide 25 Mg Tablet) 25 mg PO DAILY [facility] Last Admin: 01/30/23 09:09 Dose: 25 mg Documented By: MISTY Lamotrigine (Lamotrigine 100 Mg Tablet) 200 mg PO BEDTIME [facility] Last Admin: 01/29/23 20:58 Dose: 200 mg Documented By: MARGARITA Loratadine (Loratadine 10 Mg Tablet) 10 mg PO DAILY PRN PRN Reason: Allergy Symptoms Losartan Potassium (Losartan Potassium 50 Mg Tablet) 50 mg PO DAILY [facility]; Protocol Last Admin: 01/30/23 09:09 Dose: 50 mg Documented By: MISTY Melatonin (Melatonin 3 Mg Tablet) 6 mg PO BEDTIME PRN PRN Reason: Insomnia Montelukast Sodium (Montelukast Sodium 10 Mg Tablet) 10 mg PO DAILY@1700 [facility] Last Admin: 01/29/23 16:51 Dose: 10 mg Documented By: MICHAEL Non-Formulary Medication (Ramelteon) 8 mg PO BEDTIME [facility] Non-Formulary Medication (Tramadol-Acetaminophen) 1 tab PO Q6H PRN PRN Reason: Pain, Severe Ondansetron HCl (Ondansetron Hcl 4 Mg/2 Ml Vial) 4 mg IVPUSH Q8H PRN PRN Reason: Nausea and Vomiting Ondansetron HCl (Ondansetron Odt 4 Mg Tab.Rapdis) 4 mg TRANSLINGU Q8H PRN PRN Reason: nausea/vomiting Ondansetron HCl (Ondansetron Hcl 4 Mg/2 Ml Vial) 4 mg IVPUSH Q8H PRN PRN Reason: Nausea and Vomiting Pharmacy Consult (Consult Rx Perform Med Rec) 1 each MISCELLANE ONCE PRN PRN Reason: Consult order Sodium Chloride (0.9 % Sodium Chloride Flush 3 Ml Syringe) 3 ml IVFLUSH QSHIFT [facility] Last Admin: 01/30/23 09:10 Dose: 3 ml Documented By: MISTY Vitamin D (Cholecalciferol (Vitamin D3) 25 Mcg Tablet) 25 mcg PO DAILY@1700 [facility] Last Admin: 01/29/23 16:51 Dose: 25 mcg Documented By: MICHAEL Labs 01/29/23 05:31 01/29/23 05:31 Assessment and Plan (1) GI bleed: Status: Acute Plan This is a 77-year-old female with pertinent history of mood disorder, essential hypertension, gastroesophageal reflux disease, mixed hyperlipidemia who presents to the emergency department for evaluation of blood mixed with stool. #. Acute GI bleed with mild acute blood loss anemia: No active bleed colonoscopy today if negative then EGD- #. Essential hypertension: Hold antihypertensives in the setting of GI bleed #. Mixed hyperlipidemia: On statin #. Mood disorder: Continue home mood stabilizers DVT prophylaxis: Mechanical Full code NPO Need for inpatient: acute GI bleed, anemia needs further acute work up and treatment, frequent labs Time Spent With Patient Time: Total time managing care of this patient today ____ minutes. Quality Stroke Does the patient have a stroke diagnosis?: No VTE Prior VTE?: No VTE Risk Level:: Medical - moderate - high VTE Device Contraindication: N/A - Device Ordered VTE Drug Contraindication: Treatment Not Indicated
[2023-01-30 11:41] LABS: Hematocrit 34.2 % (37.0-47.0); Hemoglobin 11.3 g/dl (12.0-16.0); Mean Corpuscular Volume 93.7 fL (80.0-98.0); Mean Platelet Volume 8.6 fL (9.4-12.3); Platelet Count 452 X10*3/uL (160-400); Red Blood Count 3.65 X10*6/uL (4.20-5.50); Red Cell Distribution Width 13.8 % (11.0-16.0); White Blood Count 9.7 X10*3/uL (4.8-10.8)
--- NOTE | 2023-01-30 13:55 | MHC.SHP ---
Pre-Procedural Eval Section A Date of Service: 01/30/23 The patient is an INPATIENT: Yes The History & Physical has been completed within 30 days and I have reviewed it.: Yes Section B Chief Complaint: GI bleed Allergies: Allergies Allergy/AdvReac Type Severity Reaction Status Date / Time lisinopril Allergy Cough Verified 01/28/23 19:05 Plan Diagnosis/Plan: Unchanged I have reviewed the history and physical and performed a pertinent physical examination on my patient. No changes have occurred unless specified. colonoscopy +/- EGD for investigation Time Spent With Patient Time: Total time managing care of this patient today ____ minutes.
--- NOTE | 2023-01-30 14:09 | P.CONAN_ITS ---
HPI - Anesthesia Eval Consult details Narrative: for colonoscopy, poss EGD. PMFSH Active Problems Active Problems: All Active Problems (Updated 01/30/23 @ 10:12 by Sukumar Mak MD) GI bleed (Acute) Mood disorder (Acute) Essential hypertension (Acute) Mixed hyperlipidemia (Acute) Colitis (Acute) Past Medical History Medical History (Updated 01/30/23 @ 10:12 by Sukumar Mak MD) Essential hypertension GI bleed Mixed hyperlipidemia Mood disorder Family History Family history of problems with anesthesia: No Surgical History History of Problems with Anesthesia: No Social History Social History Household Members: None Housing: Apartment Do you presently have visiting nurse or other home services: Yes Alcohol intake: never Patient Tobacco Use Status: Never used Tobacco Smoked in Last 30 Days: No Use of substances other than those prescribed or required for medical reasons: No Currently Displaying Signs/Symptoms of Drug Intoxication Withdrawal: No Have you been hit, kicked, punched, or otherwise hurt by someone within the past year? If so, by whom?: No Do you feel safe in your current relationship?: No Current Relationship Is there a partner from a previous relationship who is making you feel unsafe now?: No Are you made to feel afraid or neglected: No Spiritual Healthcare Practices: Mu-Ism Are you DNR?: No Advance Directives: No Advance Directives Information Provided: No Advance Directives on File: No Do you have thoughts of harming others: None Do you have a plan to hurt others: No Plan Recently lost weight without trying: Unsure Patient : No service: No Current occupational status: disabled Meds Allergies Allergy/AdvReac Type Severity Reaction Status Date / Time lisinopril Allergy Cough Verified 01/28/23 19:05 Active Medications: Current Medications Acetaminophen (Acetaminophen 325 Mg Tablet) 650 mg PO Q6H PRN PRN Reason: Pain, Mild (Pain Scale 1-3) Albuterol Sulfate (Albuterol Sulfate 90 Mcg 8 Gm Inhaler) 2 puff INHALE Q4H PRN PRN Reason: Dyspnea Ascorbic Acid (Ascorbic Acid 250 Mg Tablet) 125 mg PO DAILY [facility] Last Admin: 01/30/23 09:09 Dose: 125 mg Ascorbic Acid (Ascorbic Acid 250 Mg Tablet) 125 mg PO DAILY [facility] Last Admin: 01/30/23 09:10 Dose: 125 mg Atorvastatin Calcium (Atorvastatin Calcium 10 Mg Tablet) 10 mg PO BEDTIME [facility] Last Admin: 01/29/23 20:58 Dose: 10 mg Bupropion HCl (Bupropion Hcl Xl 150 Mg Tab.Er.24h) 150 mg PO DAILY [facility] Last Admin: 01/30/23 09:09 Dose: 150 mg Doxepin HCl (Doxepin Hcl 10 Mg Capsule) 10 mg PO BEDTIME [facility] Last Admin: 01/29/23 20:58 Dose: 10 mg Fluticasone Propionate (Fluticasone Propionate Nasal 16 Gm [place]) 1 spray NOSTRIL-B DAILY [facility] Last Admin: 01/30/23 10:12 Dose: Not Given Hydrochlorothiazide (Hydrochlorothiazide 25 Mg Tablet) 25 mg PO DAILY [facility] Last Admin: 01/30/23 09:09 Dose: 25 mg Lamotrigine (Lamotrigine 100 Mg Tablet) 200 mg PO BEDTIME [facility] Last Admin: 01/29/23 20:58 Dose: 200 mg Loratadine (Loratadine 10 Mg Tablet) 10 mg PO DAILY PRN PRN Reason: Allergy Symptoms Losartan Potassium (Losartan Potassium 50 Mg Tablet) 50 mg PO DAILY [facility]; Protocol Last Admin: 01/30/23 09:09 Dose: 50 mg Melatonin (Melatonin 3 Mg Tablet) 6 mg PO BEDTIME PRN PRN Reason: Insomnia Montelukast Sodium (Montelukast Sodium 10 Mg Tablet) 10 mg PO DAILY@1700 [facility] Last Admin: 01/29/23 16:51 Dose: 10 mg Non-Formulary Medication (Ramelteon) 8 mg PO BEDTIME [facility] Non-Formulary Medication (Tramadol-Acetaminophen) 1 tab PO Q6H PRN PRN Reason: Pain, Severe Ondansetron HCl (Ondansetron Hcl 4 Mg/2 Ml Vial) 4 mg IVPUSH Q8H PRN PRN Reason: Nausea and Vomiting Ondansetron HCl (Ondansetron Odt 4 Mg Tab.Rapdis) 4 mg TRANSLINGU Q8H PRN PRN Reason: nausea/vomiting Ondansetron HCl (Ondansetron Hcl 4 Mg/2 Ml Vial) 4 mg IVPUSH Q8H PRN PRN Reason: Nausea and Vomiting Pharmacy Consult (Consult Rx Perform Med Rec) 1 each MISCELLANE ONCE PRN PRN Reason: Consult order Sodium Chloride (0.9 % Sodium Chloride Flush 3 Ml Syringe) 3 ml IVFLUSH QSHIFT [facility] Last Admin: 01/30/23 09:10 Dose: 3 ml Vitamin D (Cholecalciferol (Vitamin D3) 25 Mcg Tablet) 25 mcg PO DAILY@1700 [facility] Last Admin: 01/29/23 16:51 Dose: 25 mcg Home Medications Medication Instructions Recorded Confirmed Last Taken Type albuterol sulfate 90 mcg/actuation 2 puff inhalation Q4-6H PRN Dyspnea 01/29/23 01/29/23 Unknown History aerosol inhaler (Ventolin HFA) ascorbic acid (vitamin C) 250 mg 125 mg PO QAM 01/29/23 01/29/23 Unknown History tablet ascorbic acid (vitamin C) 250 mg 125 mg PO QAM 01/29/23 01/29/23 Unknown History tablet atorvastatin 10 mg tablet 10 mg PO QPM 01/29/23 01/29/23 Unknown History bupropion HCl 150 mg 24 hr tablet, 150 mg PO QAM 01/29/23 01/29/23 Unknown History extended release chlorthalidone 25 mg tablet 25 mg PO QAM 01/29/23 01/29/23 Unknown History cholecalciferol (vitamin D3) 25 25 mcg PO QPM 01/29/23 01/29/23 Unknown History mcg (1,000 unit) tablet doxepin 10 mg capsule 10 mg PO BEDTIME insomnia 01/29/23 01/29/23 Unknown History duloxetine 60 mg capsule,delayed 60 mg PO DAILY 01/29/23 01/29/23 Unknown History release fluticasone propionate 50 1 spray intranasal DAILY 01/29/23 01/29/23 Unknown History mcg/actuation nasal spray,suspension lamotrigine 200 mg tablet 200 mg PO BEDTIME 01/29/23 01/29/23 Unknown History loratadine 10 mg tablet 10 mg PO DAILY PRN Allergy Symptoms 01/29/23 01/29/23 Unknown History losartan 50 mg tablet 50 mg PO QAM 01/29/23 01/29/23 Unknown History montelukast 10 mg tablet 10 mg PO QPM 01/29/23 01/29/23 Unknown History morphine 15 mg immediate release 15 mg PO Q6H PRN pain 01/29/23 01/29/23 Unknown History tablet ondansetron 4 mg disintegrating 4 mg PO Q8H PRN nausea/vomiting 01/29/23 01/29/23 Unknown History tablet ramelteon 8 mg tablet 8 mg PO BEDTIME 01/29/23 01/29/23 Unknown History tramadol 37.5 mg-acetaminophen 325 1 tab PO Q6H PRN Pain, Severe 01/29/23 01/29/23 Unknown History mg tablet Exam Exam Date and Time: January 30, 2023 1409 Height,Weight and Vital Signs: Height 4 ft 7 in Weight 90.718 kg Last Vital Signs Temp 97.9 F 01/30/23 13:22 Pulse 78 01/30/23 13:22 Resp 20 01/30/23 13:22 BP 118/54 L 01/30/23 13:22 Pulse Ox 96 01/30/23 13:22 O2 Del Method Room Air 01/30/23 13:22 Pertinent Lab Results Pertinent Lab Results: Laboratory Tests 01/28/23 01/28/23 01/28/23 19:41 19:41 19:41 WBC 9.8 RBC 4.34 Hgb 13.4 Hct 41.0 MCV 94.5 MCH 30.9 MCHC 32.7 RDW 13.8 Plt Count 450 H MPV 9.5 Immature Gran % (Auto) 0.5 H Neut % (Auto) 77.1 H Lymph % (Auto) 13.8 L [place] % (Auto) 7.2 Eos % (Auto) 0.8 Baso % (Auto) 0.6 Lymph # (Auto) 1.4 [place] # (Auto) 0.7 Eos # (Auto) 0.1 Baso # (Auto) 0.1 Abs Immat Gran (auto) 0.05 H Absolute Neuts (auto) 7.5 Absolute Nucleated RBC 0.000 Nucleated RBC % (auto) 0.0 PT 10.9 INR 1.0 APTT 31.1 Sodium 140 Potassium 3.8 Chloride 106 Carbon Dioxide 24 Anion Gap 14 BUN 21 H Creatinine 0.79 Estim Creat Clear Calc 55.0 Estimated GFR > 60 Random Glucose 102 Calcium 9.4 Total Bilirubin 1.0 AST 14 ALT 18 Alkaline Phosphatase 185 H Total Protein 6.0 L Albumin 3.4 L Stool Occult Blood Influenza Type A (PCR) Influenza Type B (PCR) RSV RNA Qual (PCR) SARS-CoV-2 RNA (RT-PCR) 01/28/23 01/28/2301/29/23 19:41 22:39 05:31 WBC 9.6 RBC 3.56 L Hgb 11.2 L Hct 34.0 L MCV 95.5 MCH 31.5 MCHC 32.9 RDW 13.7 Plt Count 456 H MPV 8.5 L Immature Gran % (Auto) 0.4 Neut % (Auto) 76.9 H Lymph % (Auto) 13.9 L [place] % (Auto) 7.7 Eos % (Auto) 0.6 Baso % (Auto) 0.5 Lymph # (Auto) 1.3 [place] # (Auto) 0.7 Eos # (Auto) 0.1 Baso # (Auto) 0.1 Abs Immat Gran (auto) 0.04 H Absolute Neuts (auto) 7.4 Absolute Nucleated RBC 0.000 Nucleated RBC % (auto) 0.0 PT INR APTT Sodium Potassium Chloride Carbon Dioxide Anion Gap BUN Creatinine Estim Creat Clear Calc Estimated GFR Random Glucose Calcium Total Bilirubin AST ALT Alkaline Phosphatase Total Protein Albumin Stool Occult Blood POSITIVE Influenza Type A (PCR) NEGATIVE Influenza Type B (PCR) NEGATIVE RSV RNA Qual (PCR) NEGATIVE SARS-CoV-2 RNA (RT-PCR) NEGATIVE 01/29/23 01/30/23 05:31 11:14 WBC 9.7 RBC 3.65 L Hgb 11.3 L Hct 34.2 L MCV 93.7 MCH 31.0 MCHC 33.0 RDW 13.8 Plt Count 452 H MPV 8.6 L Immature Gran % (Auto) Neut % (Auto) Lymph % (Auto) [place] % (Auto) Eos % (Auto) Baso % (Auto) Lymph # (Auto) [place] # (Auto) Eos # (Auto) Baso # (Auto) Abs Immat Gran (auto) Absolute Neuts (auto) Absolute Nucleated RBC 0.000 Nucleated RBC % (auto) 0.0 PT INR APTT Sodium 143 Potassium 3.7 Chloride 109 H Carbon Dioxide 25 Anion Gap 13 BUN 18 H Creatinine 0.75 Estim Creat Clear Calc 58.0 Estimated GFR > 60 Random Glucose 92 Calcium 8.8 D Total Bilirubin AST ALT Alkaline Phosphatase Total Protein Albumin Stool Occult Blood Influenza Type A (PCR) Influenza Type B (PCR) RSV RNA Qual (PCR) SARS-CoV-2 RNA (RT-PCR) Airway Mallampati Class: IV TM Dist: <=3cm Neck ROM: Full (no neck) Heart: ok Lungs: ok Assessment and Plan Assessment Anesthesia Assessment: Anesthesia Plan Discussed and Chart Reviewed Final Anesthetic Review Family History of Problems with Anesthesia: No History of Problems with Anesthesia: No NPO: Yes ASA Class: IV Final Preanesthetic Review: No Changes in Pt Med Stat, Meds/Allgs Chart Reviewed, Consent Obtained/Reviewed and Anes Risks/Benef Reviewed Patient Risk: High Procedure Risk: Intermediate Anesthetic Plan Anesthetic Plan: GA, MAC: and Agree w/ Assess. and Plan Disposition: Standard PACU
--- NOTE | 2023-01-30 15:34 | W.PM.OPN ---
Operative Note Operative Note Date of Service: 01/30/23 Narrative: Operative Information Procedure Description: Colonoscopy Indication: rectal bleeding Anesthesia: MAC COLONOSCOPY Instrument: Olympus variable stiffness ADULT scope 190L Colonoscopy Monitoring: Vital signs and clinical assessment, continuous EKG monitoring, Pulse oximetry, Carbon Dioxide monitoring and blood pressure monitoring were done throughout the procedure. Colon withdrawal time was 30 minutes. Procedure: The patient was placed in the left lateral decubitis position and pre-procedure medications were administered. After a digital rectal examination of the ano-rectum, the video colonoscope was inserted into the rectum and advanced through the colon to the cecum/TI. The colonoscope was slowly withdrawn in a retrograde panoramic fashion and the colon mucosa was carefully examined including a retroflexed view of the rectum. Findings and interventions are described below. Procedure Difficulty: moderate due to looping, pressure applied to reach cecum Findings: Terminal Ileum-not intubated Cecum: 12-13 mm sessile polyp removed with cold snare Ascending Colon: normal Transverse Colon - x1 sessile polyp 12 mm removed with cold snare. At distal transverse colon just close to splenic flexure a 15-18 mm semi pedunculated polyp noted which was raised with eleview and then removed with hot snare. One clip placed to close defect and then mikie ink tattoo injected 1-2 cm distally and proximally to resection site. Descending Colon:normal Sigmoid Colon: 10 mm sessile polyp removed with cold snare Rectum: Retroflexion with medium sized internal hemorrhoids, grade I- 10 mm sessile polyp removed with cold snare Anorectum - normal Colon preparation: [place] Bowel Preparation Scale Right colon; 2 Transverse colon: 3 Left colon; 3 (0 = Unprepared colon segment with mucosa not seen due to solid stool that cannot be cleared. 1 = Portion of mucosa of the colon segment seen, but other areas of the colon segment not well seen due to staining, residual stool and/or opaque liquid. 2 = Minor amount of residual staining, small fragments of stool and/or opaque liquid, but mucosa of colon segment seen well. 3 = Entire mucosa of colon segment seen well with no residual staining, small fragments of stool or opaque liquid) Impression and Post Procedure Diagnosis: polyps internal hemorrhoids Plan: High fiber diet leaflet Avoid straining at stool, epsom salts and sitz bath, anusol supps or cream Repeat Colonoscopy in 6-12 months or earlier if clinically indicated No evidence of ongoing bleeding, can go home today. Bleeding could have been from hemorrhoids or polyps. Avoid NSAIDS for 3-5 days Above findings were reviewed with the patient and relevant handouts were provided if indicated.
--- NOTE | 2023-01-30 18:28 | PC.NURSE ---
Pt's ring back on her finger. Confirmed that telepack was transmitting prior to transport
[2023-01-30] MEDS: lamoTRIgine 100 MG TABLET 200 MG PO (20:04)
[2023-01-30] MEDS: Atorvastatin Calcium 10 MG TABLET PO (20:04)
[2023-01-30] MEDS: Cholecalciferol (Vitamin D3) 25 MCG TABLET PO (20:04)
[2023-01-30] MEDS: Montelukast Sodium 10 MG TABLET PO (20:04)
[2023-01-30] MEDS: Doxepin HCl 10 MG CAPSULE PO (20:05)
[2023-01-31] VITALS: BP 135/61; PULSE 75; RESP 18; TEMP 37; O2SAT 93
[2023-01-31 04:00] VITALS: BP 122/57; PULSE 66; RESP 20; TEMP 36.4; O2SAT 94
[2023-01-31 07:33] VITALS: BP 117/56; PULSE 62; RESP 16; TEMP 36.8; O2SAT 95
--- NOTE | 2023-01-31 08:01 | PM.DS ---
DS: Providers Provider Date of Service: 01/31/23 Date of admission: 01/28/23 22:55 Primary care physician: Vivien Morales MD Consults: 01/28/23 22:55 Consult to Gastroenterology Routine Consulting Provider: Joseph Benavidez Reason for consultation: GI bleed DS: Diagnosis Discharge Diagnosis (1) GI bleed: Status: Acute DS: Summary Hospital Course Hospital Course: Admission HPI: Chief Complaint: GI bleed This is a 77-year-old female with pertinent history of mood disorder, essential hypertension, gastroesophageal reflux disease, mixed hyperlipidemia who presents to the emergency department for evaluation of blood mixed with stool.? Patient states she 1st noticed blood mixed with stool about 2 days prior to presentation.? It is painless and has been happening every time she has a bowel movement.? Has occasional epigastric abdominal discomfort.? Last colonoscopy was 6-7 years ago which was apparently normal.? Has had poor appetite on the day of presentation due to nausea.? No fever, chills, chest discomfort, palpitations, shortness of breath, changes in urinary habits. Hosopital course: She presented with bloody bowel movement , hemoglobin of 13 which subsequently went down to 11 and required NO transfusion, there was no further bleeding during hospitalization. She underwnt Colonoscopy on 01/[address] Mak with the following findings and recommendations. polyps and internal hemorrhoids Plan: High fiber diet leaflet Avoid straining at stool, epsom salts and sitz bath, anusol supps or cream Repeat Colonoscopy in 6-12 months or earlier if clinically indicated No evidence of ongoing bleeding, . Bleeding could have been from hemorrhoids or polyps. Avoid NSAIDS for 3-5 days Above findings were reviewed with the patient and relevant handouts were provided if indicated. She remains stable, with hemoglobin remains 11 the last 2 days. Time Spent with Patient Time attestation: Total time managing care of this patient today ____ minutes. Discharge coordination time: Greater than 30 minutes Quality: Safe Use of Opioids Does Pt have an Active Cancer Diagnosis on the Problem List?: No Quality: Stroke Does the patient have a stroke diagnosis?: No Physical Exam Vital Signs: Vital Signs: Last Vital Signs Temp 98.3 F 01/31/23 07:33 Pulse 62 01/31/23 07:33 Resp 16 01/31/23 07:33 BP 117/56 L 01/31/23 07:33 Pulse Ox 95 01/31/23 07:33 O2 Del Method Room Air 01/31/23 07:33 BMI result Body Mass Index 46.5 DS: Data Data Completed and Pending Pending studies at discharge: Pending at discharge 01/30/23 15:14 Surgical [PTH] Routine Labs on day of discharge: Laboratory Results - last 24 hr 01/30/23 11:14 WBC 9.7 RBC 3.65 L Hgb 11.3 L Hct 34.2 L MCV 93.7 MCH 31.0 MCHC 33.0 RDW 13.8 Plt Count 452 H MPV 8.6 L Absolute Nucleated RBC 0.000 Nucleated RBC % (auto) 0.0 Discharge Plan Discharge Anticipated Discharge Date/Time: 01/31/23 08:14 Patient Disposition: Home, Self-Care Discharge Diagnosis: GIB, acute blood loss anemia Referrals: Vivien Morales MD [Primary Care Provider] - 1 Week Sukumar Mak MD [Physician] - 3 Months Discharge Medications: Continued losartan 50 mg tablet 50 mg PO QAM lamotrigine 200 mg tablet 200 mg PO BEDTIME atorvastatin 10 mg tablet 10 mg PO QPM chlorthalidone 25 mg tablet 25 mg PO QAM doxepin 10 mg capsule 10 mg PO BEDTIME ascorbic acid (vitamin C) 250 mg tablet 125 mg PO QAM ascorbic acid (vitamin C) 250 mg tablet 125 mg PO QAM montelukast 10 mg tablet 10 mg PO QPM albuterol sulfate [Ventolin HFA] 90 mcg/actuation HFA aerosol inhaler 2 puff INHALATION Q4-6H PRN (Reason: Dyspnea) morphine 15 mg tablet 15 mg PO Q6H PRN (Reason: pain) ondansetron 4 mg tablet,disintegrating 4 mg PO Q8H PRN (Reason: nausea/vomiting) fluticasone propionate 50 mcg/actuation spray,suspension 1 spray intranasal DAILY loratadine 10 mg tablet 10 mg PO DAILY PRN (Reason: Allergy Symptoms) ramelteon 8 mg tablet 8 mg PO BEDTIME cholecalciferol (vitamin D3) 25 mcg (1,000 unit) tablet 25 mcg PO QPM tramadol-acetaminophen 37.5-325 mg Tablet 1 tab PO Q6H PRN (Reason: Pain, Severe) bupropion HCl 150 mg Tablet Extended Release 24 Hr 150 mg PO QAM duloxetine 60 mg Capsule,Delayed Release(Dr/Ec) 60 mg PO DAILY Diet: Advance to usual diet Activity on Discharge: As tolerated Stand Alone Forms: Patient Portal Discharge page Care Plan Goals: full recovery from gi bleeding and anemia Health Concerns: anemia, gib bleeding, colon polyp Plan of Treatment: Eat high fiber diet leaflet Avoid straining at stool, epsom salts and sitz bath, anusol supps or cream Repeat Colonoscopy in 6-[address] Mak Avoid NSAIDS (ibuprofen, advill and other over the counter pain medicine, check with pharmacist) for 3-5 days? Assessment: as above
[2023-01-31] MEDS: Losartan Potassium 50 MG TABLET PO (09:03)
[2023-01-31] MEDS: buPROPion HCl XL 150 MG TAB.ER.24H PO (09:03)
[2023-01-31] MEDS: hydroCHLOROthiazide 25 MG TABLET PO (09:03)
[2023-01-31] MEDS: 0.9 % Sodium Chloride Flush 3 ML SYRINGE IVFLUSH ×2 (09:04)
[2023-01-31] MEDS: Ascorbic Acid 250 MG TABLET 125 MG PO ×2 (09:04)
[2023-01-31] MEDS: Fluticasone Propionate Nasal 16 GM SPRAY 1 SPRAY NOSTRIL-B (09:05)
--- NOTE | 2023-01-31 09:25 | MHC.CM.PN ---
Patient has been medically cleared for dc to home today, self care. Last IMM addressed on 01/29/2023.
--- NOTE | 2023-01-31 14:09 | HO.POSTANES ---
Post Anesthesia Evaluation Post Anesthesia Evaluation Vital Signs: Vital Signs Temp Pulse Resp BP Pulse Ox O2 Del Method 01/31/23 07:33 98.3 F 62 16 117/56 L 95 Room Air 01/31/23 04:00 97.5 F 66 20 122/57 L 94 Room Air Anesthesia: Monitored Mental Status: Awake Pain Control: Satisfactory Nausea/Vomiting: None Hydration: Adequate Anesthesia-Related Issues: No Anes. Related Issues
--- NOTE | 2023-01-31 14:38 | P.CDIM_ITS ---
PROVIDER RESPONSE TEXT: To clarify, the appropriate diagnosis supported by the clinical indicators: Obesity Due to excess calories QUERY TEXT: PHYSICIAN'S DOCUMENTATION REQUEST Date of Query: 01/30/2023 08:35 AM EDT Patient Name: ian chiu Admit Date: 01/29/2023 Dear Markel Strong, A review of the medical record indicates additional documentation may be needed. Please review below and update the documentation accordingly. Clinical Indicators: BMI: 46.5 4ft 7in 90.718kg If possible, please provide an associated diagnosis related to the abnormal BMI, such as: Overweight Obesity Due to excess calories Severe or Morbid Obesity With alveolar hypoventilation Severe or Morbid Obesity Without alveolar hypoventilation Other Unable to determine Other (explain) Clinically unable to determine (explain) Thank you, Ritika Hahn, CCS, CDIS Use of terms such as suspected, likely, concern for, or probable (associated with a specific diagnosi s that is being evaluated, monitored, or treated as if it exists) are acceptable and can be coded in the inpatient se tting, when documented at the time of discharge. Please use your independent medical judgment in providing your response. THIS QUERY IS PART OF THE PERMANENT MEDICAL RECORD
== END 2023-01-31 09:35 | disposition home or self-care (01) | DRG 378 ==
LOC: HO.ED 22:51 → HO.EDOVER 23:28 → HO.IMC 01-29 06:53
PROVIDERS: Internal Medicine Gastroenterology; Physician Assistant; Admitting Provider Student in an Organized Health Care Education/Training Program; Emergency Provider Emergency Medicine Emergency Medical Services; PCP Family Medicine; Visit Provider Internal Medicine
PROC: 0DJD8ZZ Inspection of Lower Intestinal Tract, Via Natural or Artificial Opening Endoscopic (ICD-10-PCS; CPT 45378; principal; 2023-01-30 14:00)
DX: K62.5 Hemorrhage of anus and rectum (principal); D62 Acute posthemorrhagic anemia; Z68.42 Body mass index [BMI] 45.0-49.9, adult; F39 Unspecified mood [affective] disorder; K64.8 Other hemorrhoids; K63.5 Polyp of colon; E66.9 Obesity, unspecified; I10 Essential (primary) hypertension; E78.2 Mixed hyperlipidemia; Z98.84 Bariatric surgery status; Z20.822 Contact with and (suspected) exposure to COVID-19; Z88.8 Allergy status to other drugs, medicaments and biological substances; Z79.51 Long term (current) use of inhaled steroids; Z79.899 Other long term (current) drug therapy
CPT/HCPCS: 0241U; 36415; 74176; 80048; 80053; 82272; 85025; 85027; 85610; 85730; 88305; 99285; J3010

== ENCOUNTER 2023-02-11 09:16 | Emergency (ER) | payer OTHER, SELFPAY ==
[2023-02-11] VITALS (10 sets, daily range): BP systolic 106–152; BP diastolic 54–78; PULSE 66–86; RESP 14–20; TEMP 36.6–36.8; O2SAT 93–97; BMI 43.7
--- NOTE | ~2023-02-11 | CT_ITS ---
EXAMINATION: Head and cervical spine CT without IV contrast CLINICAL INFORMATION: Trauma. Head and neck pain. COMPARISON: None. TECHNIQUE: Axial images through the head and cervical spine without IV contrast. Sagittal and coronal reconstructions on the technologist workstation were performed. DLP 118 1 mg/cm. This CT examination was performed using dose optimization techniques as appropriate, variously including the following: *Automated exposure control *Adjustment of mA and/or kV according to patient size (this includes techniques or standardized protocols for targeted exams where dose is matched to indication/reason for exam; i.e. extremities or head) *Use of iterative reconstruction technique FINDINGS: Head CT: There is no evidence of an extra-axial collection. There is no evidence of intra or extra-axial hemorrhage or axial CSF spaces are prominent suggestive of atrophy. There is nonspecific periventricular white matter disease. No mass, mass effect or infarct is seen. No skull fracture is seen. Visualized paranasal sinuses, mastoids ureters are clear. Cervical spine CT: Bone alignment is normal. No fracture or dislocation. Degenerative spondylosis and degenerative disc disease from C4-C5 to C6-C7. Normal prevertebral soft tissues. Small 5 mm left thyroid nodule. No imaging follow-up recommended. Visualized lung apices are clear. CT/CT cervical spine wo IV con IMPRESSION: Head CT: No acute findings. Mild generalized atrophy and nonspecific periventricular white matter disease. Cervical spine: No fracture or dislocation. Degenerative changes.
--- NOTE | ~2023-02-11 | CT_ITS ---
EXAMINATION: Head and cervical spine CT without IV contrast CLINICAL INFORMATION: Trauma. Head and neck pain. COMPARISON: None. TECHNIQUE: Axial images through the head and cervical spine without IV contrast. Sagittal and coronal reconstructions on the technologist workstation were performed. DLP 118 1 mg/cm. This CT examination was performed using dose optimization techniques as appropriate, variously including the following: *Automated exposure control *Adjustment of mA and/or kV according to patient size (this includes techniques or standardized protocols for targeted exams where dose is matched to indication/reason for exam; i.e. extremities or head) *Use of iterative reconstruction technique FINDINGS: Head CT: There is no evidence of an extra-axial collection. There is no evidence of intra or extra-axial hemorrhage or axial CSF spaces are prominent suggestive of atrophy. There is nonspecific periventricular white matter disease. No mass, mass effect or infarct is seen. No skull fracture is seen. Visualized paranasal sinuses, mastoids ureters are clear. Cervical spine CT: Bone alignment is normal. No fracture or dislocation. Degenerative spondylosis and degenerative disc disease from C4-C5 to C6-C7. Normal prevertebral soft tissues. Small 5 mm left thyroid nodule. No imaging follow-up recommended. Visualized lung apices are clear. CT/CT head/brain wo IV con IMPRESSION: Head CT: No acute findings. Mild generalized atrophy and nonspecific periventricular white matter disease. Cervical spine: No fracture or dislocation. Degenerative changes.
--- NOTE | 2023-02-11 09:37 | ECG_ITS ---
Test Reason : SYNCOPE Blood Pressure : / mmHG Vent. Rate : 067 BPM Atrial Rate : 067 BPM P-R Int : 166 ms QRS Dur : 092 ms QT Int : 422 ms P-R-T Axes : 026 -12 051 degrees QTc Int : 445 ms Normal sinus rhythm with sinus arrhythmia Normal ECG When compared with ECG of 10-JAN-2023 16:56, No significant change was found Referred By: Cassandra Ornelas Electronically Signed By:DEYA GARCIA MD
--- NOTE | 2023-02-11 09:46 | ED_ITS ---
HPI - Fall General Chief Complaint: Fall Stated Complaint: FALL W/HEADSTRIKE,+CCOLLAR PER EMS Time Seen by Provider: 02/11/23 09:23 Source: patient and ironer hand Mode of arrival: EMS Limitations: language barrier History of Present Illness HPI Narrative: This is a 77-year-old female, with a past medical history of hypertension, who presents to the emergency department today via EMS, accompanied by daughter, for evaluation of syncopal episode which occurred today. Daughter reports that patient was standing in an elevator when suddenly she fell backwards and struck her head on the elevator wall. Daughter reports that for 20-30 seconds patient eyes open looking around, and was not responding. Daughter reports that prior to this fall patient was complaining of tiredness for the last several days, daughter reports patient had difficulty getting out of her bed which is atypical of her. Patient is unaware that she fell today. Patient reports that she currently has posterior head pain, denies chest pain, shortness of breath, abdominal pain, nausea, vomiting, or diarrhea. MD complaint: fall Onset (ago): hour(s) Fall from: standing Fall witnessed: yes, by family Place fall occurred: home Loss of consciousness: yes, seconds Length of LOC: second(s) Context: history of frequent falls Severity: moderate Quality: aching Associated symptoms (after fall): headache Related Data Previous Rx's Medication Instructions Recorded morphine 15 mg immediate release 15 mg PO Q6H PRN pain 5 days #10 01/10/23 tablet tabs ondansetron 4 mg disintegrating 4 mg PO Q8H PRN nausea and 01/15/23 tablet vomiting #10 tabs Allergies Allergy/AdvReac Type Severity Reaction Status Date / Time lisinopril [LISINOPRIL] Allergy Mild COUGH Verified 01/21/23 13:26 Pt states no known allergy to Allergy Unknown Unknown Uncoded 01/21/23 13:26 Review of Systems Review of Systems: Yes all other systems are reviewed and are negative PMFSH Past Medical History Attestation statement: The following information was validated with the patient. Social History Social History Smoked in Last 30 Days: No Use of substances other than those prescribed or required for medical reasons: No Advance Directives: No Advance Directives Information Provided: Yes Physical Exam Vital Signs: Vital Signs: Last Vital Signs Temp 98.2 F 02/11/23 15:12 Pulse 70 02/11/23 15:12 Resp 16 02/11/23 15:12 BP 137/54 L 02/11/23 15:12 Pulse Ox 97 02/11/23 15:12 O2 Del Method Room Air 02/11/23 15:12 BMI result Body Mass Index 43.7 Appearance: Alert. Oriented to person, place, time, not oriented to situation. C-collar in place. Normocephalic atraumatic Head: Small hematoma with mild tenderness to palpation noted to the occiput. No drainage, fluctuance. Eyes: Pupils equal, round and reactive to light. EOMI ENT: Pharynx normal. No hemotympanum, TM normal bilaterally Neck: Normal inspection. Neck supple. No cervical midline spine tenderness with palpation. CVS: Normal heart rate and rhythm. Pulses normal. S1S2 regular Respiratory: No respiratory distress. Breath sounds normal. Lungs clear auscultation bilaterally Abdomen: Soft and nontender. +BS x4 Skin: Skin warm and dry. Normal skin color. Normal skin turgor. No rashes. Numerous scattered, healing ecchymosis noted to bilateral arms. Left hand and wrist placed in forearm cast. Extremities: No lower extremity edema. Neuro: No motor deficit. No sensory deficit. CN II-XII intact. Course Reevaluation(s) Reevaluation #1: CT head and neck returns in read as no acute findings, mild generalized atrophy and nonspecific periventricular white matter disease. Cervical spine without fracture dislocation, or degenerative disc disease at C4-C5 to C6-C7. The cervical collar removed. Patient remains comfortable and stable. Time: 11:44 Reevaluation #2: UA returns, small a leukocyte esterase with 6-10 urine wbc's, no nitrites, with squamous cells, likely contamination - pt is asymptomatic. Will not tx for UTI at this time. Patient is not orthostatic. EKG nonischemic, negative troponin, labs WNL. Discussed patient's result with patient, it is unclear what had caused her to fall. She has a negative head and neck CT, negative cardiac workup. Patient remains stable throughout her entire stay. Discussed importance of follow up with her primary care physician. Discussed these results with patient's [id number] at bedside. Daughter requesting note on discharge and stating that patient is not to bee left alone. Patient has follow-up with her primary care physician on February 18. Advised to closely monitor patient's symptoms, and to proceed with normal post concussion care. Daughter and patient agree with this treatment plan. No current questions or concerns at this time. Stable for discharge. Time: 14:14 Medications Administered Discontinued Medications Generic Name Dose Route Start Last Admin Trade Name Yuniel PRN Reason Stop Dose Admin Acetaminophen 975 mg 02/11/23 12:42 02/11/23 13:10 Acetaminophen 325 Mg Tablet PO 02/11/23 12:43 975 mg ONCE ONE Administration Medical Decision Making Medical Decision Making MDM Narrative: 77-year-old female, past medical history of hypertension, presenting for evaluation of syncope with head strike which occurred [employer]. Daughter at bedside reports patient fell backwards, denies this being a mechanical fall. Pt had eyes open immediately after the fall, but looking back and forth and was not responding. Daughter reports that patient has a history of frequent falls, and daughter has been caring for her over the last couple of weeks. Patient has many visiting nurses and has physical therapy at home. Plan: CT head/neck, EKG, labs, UA Differential Diagnosis Differential Diagnoses: The differential diagnosis associated with the presentation includes ICH, CVA, ACS, syncope, closed head injury, UTI Lab Data [facility] Lab Attestation statement: I reviewed the patient's lab results. No leukocytosis, electrolytes within normal limits, 02/11/23 11:05 02/11/23 11:04 Labs: Lab Results 02/11/23 02/11/23 02/11/23 Range/Units 10:41 11:04 11:04 WBC (4.8-10.8) X10*3/uL RBC (4.20-5.50) X10*6/uL Hgb (12.0-16.0) g/dl Hct (37.0-47.0) % MCV (80.0-98.0) fL MCH (27.0-33.0) pg MCHC (31.0-35.0) g/dl RDW (11.0-16.0) % Plt Count (160-400) X10*3/uL MPV (9.4-12.3) fL Immature Gran % (Auto) (0.0-0.4) % Neut % (Auto) (45-73) % Lymph % (Auto) (20-40) % [place] % (Auto) (2-11) % Eos % (Auto) (0-4) % Baso % (Auto) (0-2) % Lymph # (Auto) (1.2-4.9) X10*3/uL [place] # (Auto) (0.1-1.2) X10*3/uL Eos # (Auto) (0.0-0.4) X10*3/uL Baso # (Auto) (0.0-0.2) X10*3/uL Abs Immat Gran (auto) (0.00-0.03) X10*3/uL Absolute Neuts (auto) (2.0-8.3) x10*3/uL Absolute Nucleated RBC (0.0-0.012) X10*3/uL Nucleated RBC % (auto) (0.0-0.2) /100WBC PT (10.0-13.1) SEC INR (0.9-1.1) APTT (26.0-36.4) SEC Sodium 141 (135-145) mmol/L Potassium 4.3 (3.3-5.1) mmol/L Chloride 104 (96-108) mmol/L Carbon Dioxide 30 H (22-29) mmol/L Anion Gap 11 L (12-20) BUN 19 H (9-16) mg/dL Creatinine 0.85 (0.5-1.4) mg/dL Estim Creat Clear Calc 49.1 Estimated GFR > 60 Random Glucose 87 (60-115) mg/dL Calcium 9.3 (8.4-10.2) mg/dL Magnesium 2.0 (1.6-2.6) mg/dL Total Bilirubin 0.8 (0.0-1.0) mg/dL Direct Bilirubin 0.2 (0.0-0.5) mg/dL AST 24 (5-31) U/L ALT 29 (0-31) U/L Alkaline Phosphatase 159 H (39-117) U/L Troponin I High Sens 3.2 (<3.5-17.0) ng/L Total Protein 5.8 L (6.5-8.0) g/dL Albumin 3.3 L (3.5-5.0) g/dL Lipase 35 (8-78) U/L Urine Color Urine Appearance Urine pH (5.0-9.0) Ur Specific [place] (1.005-1.025) Urine Protein (Neg-Trace) mg/dL Urine Glucose (UA) (Negative) mg/dL Urine Ketones (Negative) mg/dL Urine Blood (Negative) Urine Nitrite (Negative) Ur Leukocyte Esterase (Negative) Urine RBC (0-2) /HPF Urine WBC (0-5) /HPF Ur Squamous Epith Cells (0-2) /HPF Urine Bacteria (None Seen) Hyaline Casts (0-2) /LPF Influenza Type A (PCR) NEGATIVE (Negative) Influenza Type B (PCR) NEGATIVE (Negative) RSV RNA Qual (PCR) NEGATIVE (Negative) SARS-CoV-2 RNA (RT-PCR) NEGATIVE (Negative) 02/11/23 02/11/23 02/11/23 Range/Units 11:05 11:05 13:56 WBC 11.7 H (4.8-10.8) X10*3/uL RBC 4.15 L (4.20-5.50) X10*6/uL Hgb 12.8 (12.0-16.0) g/dl Hct 39.7 (37.0-47.0) % MCV 95.7 (80.0-98.0) fL MCH 30.8 (27.0-33.0) pg MCHC 32.2 (31.0-35.0) g/dl RDW 13.8 (11.0-16.0) % Plt Count 409 H D (160-400) X10*3/uL MPV 8.3 L (9.4-12.3) fL Immature Gran % (Auto) 0.5 H (0.0-0.4) % Neut % (Auto) 80.0 H (45-73) % Lymph % (Auto) 11.4 L (20-40) % [place] % (Auto) 7.2 (2-11) % Eos % (Auto) 0.6 (0-4) % Baso % (Auto) 0.3 (0-2) % Lymph # (Auto) 1.3 (1.2-4.9) X10*3/uL [place] # (Auto) 0.8 (0.1-1.2) X10*3/uL Eos # (Auto) 0.1 (0.0-0.4) X10*3/uL Baso # (Auto) 0.0 (0.0-0.2) X10*3/uL Abs Immat Gran (auto) 0.06 H (0.00-0.03) X10*3/uL Absolute Neuts (auto) 9.4 H (2.0-8.3) x10*3/uL Absolute Nucleated RBC 0.000 (0.0-0.012) X10*3/uL Nucleated RBC % (auto) 0.0 (0.0-0.2) /100WBC PT 10.5 (10.0-13.1) SEC INR 0.9 (0.9-1.1) APTT 30.5 (26.0-36.4) SEC Sodium (135-145) mmol/L Potassium (3.3-5.1) mmol/L Chloride (96-108) mmol/L Carbon Dioxide (22-29) mmol/L Anion Gap (12-20) BUN (9-16) mg/dL Creatinine (0.5-1.4) mg/dL Estim Creat Clear Calc Estimated GFR Random Glucose (60-115) mg/dL Calcium (8.4-10.2) mg/dL Magnesium (1.6-2.6) mg/dL Total Bilirubin (0.0-1.0) mg/dL Direct Bilirubin (0.0-0.5) mg/dL AST (5-31) U/L ALT (0-31) U/L Alkaline Phosphatase (39-117) U/L Troponin I High Sens (<3.5-17.0) ng/L Total Protein (6.5-8.0) g/dL Albumin (3.5-5.0) g/dL Lipase (8-78) U/L Urine Color Yellow Urine Appearance Clear Urine pH 6.0 (5.0-9.0) Ur Specific [place] 1.020 (1.005-1.025) Urine Protein Negative (Neg-Trace) mg/dL Urine Glucose (UA) Negative (Negative) mg/dL Urine Ketones Trace (Negative) mg/dL Urine Blood Negative (Negative) Urine Nitrite Negative (Negative) Ur Leukocyte Esterase Small (1+) H (Negative) Urine RBC 0-2 (0-2) /HPF Urine WBC 6-10 H (0-5) /HPF Ur Squamous Epith Cells 6-10 (0-2) /HPF Urine Bacteria 1+ (None Seen) Hyaline Casts 0-2 (0-2) /LPF Influenza Type A (PCR) (Negative) Influenza Type B (PCR) (Negative) RSV RNA Qual (PCR) (Negative) SARS-CoV-2 RNA (RT-PCR) (Negative) Independent Interpretation I performed an independent interpretation of an: EKG and CT Scan Interpretation: EKG normal sinus rhythm sinus arrhythmia, ventricular rate of 67 beats per minute, AR interval 166, QRS 92. QTC 445. No ST elevations or depressions. No acute ischemic changes. Radiology Impression Discussion of test interpretation with radiology: I have reviewed the radiologist's reading. Radiologist Impression: FINDINGS: Head CT: There is no evidence of an extra-axial collection. There is no evidence of intra or extra-axial hemorrhage or axial CSF spaces are prominent suggestive of atrophy. There is nonspecific periventricular white matter disease. No mass, mass effect or infarct is seen. No skull fracture is seen. Visualized paranasal sinuses, mastoids ureters are clear. Cervical spine CT: Bone alignment is normal. No fracture or dislocation. Degenerative spondylosis and degenerative disc disease from C4-C5 to C6-C7. Normal prevertebral soft tissues. Small 5 mm left thyroid nodule. No imaging follow-up recommended. Visualized lung apices are clear. CT/CT head/brain wo IV con IMPRESSION: Head CT: No acute findings. Mild generalized atrophy and nonspecific periventricular white matter disease. ? Cervical spine: No fracture or dislocation. Degenerative changes. Dictated By: Carolynn Dolan MD Independent Historian Clinical information obtained from an independent historian. History obtained from or confirmed by: EMS and Other (Daughter) Chronic Conditions Patient?s care impacted by: Hypertension Discharge Plan Discharge Clinical Impression: Closed head injury, Syncope Patient Disposition: Home, Self-Care Instructions: Concussion (ED), Head Injury (ED), Syncope in Older Adults (ED) Additional Instructions: Our recommendations from today's visit, patient should not left home alone until she is more physical and cognitively able to be on her own. For further clearance and recommendations, she will need to follow up with her primary care physician. Your CT scan of your head was unremarkable for any acute findings. Your neck CT shows mild degenerative changes. Please rest and apply ice to the back of your head as needed. Stay hydrated and get plenty of physical and mental rest. Your urine is being sent out for further testing, we will call you with any abnormal results. You may take tylenol as needed for headaches. If any new or worsening symptoms occur, please return for any worsening symptoms. Follow up with your primary care physician. Nuestras recomendaciones de la visita de lucas, la paciente no debe salir nurys de casa hasta que sea m?s capaz f?mark anthony y cognitivamente de estar nurys. Para obtener m?s autorizaci?n y recomendaciones, deber? hacer un seguimiento con prater m?dico de atenci?n primaria. Prater tomograf?a computarizada de la jessica no mostr? jorge?n hallazgo cole. La tomograf?a computarizada de prater guille muestra cambios degenerativos leves. Descanse y aplique hielo en la parte posterior de la jessica seg?n sea necesario. Mant?ngase hidratado y descanse mucho f?mark anthony y mentalmente. Prater orina se enviar? para realizar m?s pruebas, lo llamaremos con cualquier resultado anormal. Puede letha Tylenol seg?n sea necesario para los cristina de jessica. Si se presentan s?ntomas nuevos o que empeoran, regrese por cualquier s?ntoma que empeore. Corazon un seguimiento con prater m?dico de atenci?n primaria. Prescriptions: No Action morphine 15 mg tablet 15 mg PO Q6H PRN (Reason: pain) 5 Days Qty: 10 0RF Rx Instructions: Partial Fill upon patient request. ondansetron 4 mg tablet,disintegrating 4 mg PO Q8H PRN (Reason: nausea and vomiting) Qty: 10 0RF Print Language: Qatari
--- NOTE | 2023-02-11 10:23 | PC.NURSE ---
assumed care of this pt at 0924 when pt was BIBA from home for fall. pt currently alert and oriented to person, time and place, but confused on where the fall occurred stating it happened here in the hospital . pt daughter and other family member currently at pt bedside. pt's daughter was able to tell a more accurate story of what had happened since she was with her mother when she fell. daughter sts, pt has been more confused lately, but this is not her baseline. pt currently has cast to the right arm for a wrist fracture from past fall. pt just returned from CT scan. vss. wctm.
[2023-02-11 11:10] LABS: MANUAL DIFF FLAG NO
[2023-02-11 11:11] LABS: Basophils Percent Auto 0.3 % (0-2); Eosinophils Absolute Auto 0.1 X10*3/uL (0.0-0.4); Eosinophils Percent Auto 0.6 % (0-4); Hematocrit 39.7 % (37.0-47.0); Hemoglobin 12.8 g/dl (12.0-16.0); Imm Gran Abs Auto 0.06 X10*3/uL (0.00-0.03); Imm Gran Pct Auto 0.5 % (0.0-0.4); Lymphocytes Absolute Auto 1.3 X10*3/uL (1.2-4.9); Lymphocytes Percent Auto 11.4 % (20-40); Mean Corpuscular HGB Conc 32.2 g/dl (31.0-35.0); Mean Corpuscular Hemoglobin 30.8 pg (27.0-33.0); Mean Corpuscular Volume 95.7 fL (80.0-98.0); Mean Platelet Volume 8.3 fL (9.4-12.3); Monocytes Absolute Auto 0.8 X10*3/uL (0.1-1.2); Monocytes Percent Auto 7.2 % (2-11); Neutrophils Absolute Auto 9.4 x10*3/uL (2.0-8.3); Platelet Count 409 X10*3/uL (160-400); Red Blood Count 4.15 X10*6/uL (4.20-5.50); Red Cell Distribution Width 13.8 % (11.0-16.0); White Blood Count 11.7 X10*3/uL (4.8-10.8)
[2023-02-11 11:19] LABS: INTERNATIONAL NORM RATIO 0.9 (0.9-1.1); Prothrombin Time 10.5 SEC (10.0-13.1)
[2023-02-11 11:22] LABS: Partial Thromboplastin Time 30.5 SEC (26.0-36.4)
[2023-02-11 11:27] LABS: Influenza A PCR NEGATIVE (Negative); Influenza B PCR NEGATIVE (Negative); Resp Syncy Virus RNA Qual PCR NEGATIVE (Negative); SARS COV2 PCR INHOUSE NEGATIVE (Negative)
[2023-02-11 11:31] LABS: Troponin-I High Sensitivity 3.2 ng/L (<3.5-17.0)
[2023-02-11 11:35] LABS: Alanine Aminotransferase 29 U/L (0-31); Albumin Level 3.3 g/dL (3.5-5.0); Alkaline Phosphatase 159 U/L (39-117); Anion Gap 11 (12-20); Aspartate Amino Transferase 24 U/L (5-31); Bilirubin Direct 0.2 mg/dL (0.0-0.5); Bilirubin Total 0.8 mg/dL (0.0-1.0); Blood Urea Nitrogen 19 mg/dL (9-16); Calcium 9.3 mg/dL (8.4-10.2); Carbon Dioxide 30 mmol/L (22-29); Chloride 104 mmol/L (96-108); Creatinine Clr Calc Pharmacy 49.1; Estimated Glomerular Filt Rate > 60; Glucose Random 87 mg/dL (60-115); Lipase 35 U/L (8-78); Potassium 4.3 mmol/L (3.3-5.1); Sodium 141 mmol/L (135-145); Total Protein 5.8 g/dL (6.5-8.0)
[2023-02-11] MEDS: Acetaminophen 325 MG TABLET 975 MG PO (13:10)
--- NOTE | 2023-02-11 13:52 | PC.NURSE ---
pt given sandwich and water, after asking for food. currently resting quietly with family member in room. pt medicated for head pain per mar. waiting on urine sample.
[2023-02-11 14:02] LABS: Appearance Urine Clear; Color Urine Yellow; Glucose Urine UA Negative (Negative); Leukocyte Esterase Urine Small (1+) (Negative); Nitrite Urine Negative (Negative); UMIC TRIGGER UACC YES; Urine Blood Negative (Negative); Urine Ketones Trace mg/dL (Negative); Urine Protein Negative (Neg-Trace)
[2023-02-11 14:07] LABS: Bacteria Urine 1+ (None Seen); Hyaline Casts Urine 0-2 /LPF (0-2); RBC Urine 0-2 /HPF (0-2); UACC Culture Trigger YES
== END 2023-02-11 15:36 | disposition home or self-care (01) ==
PROVIDERS: Physician Assistant Medical; Emergency Provider Emergency Medicine
DX: S00.93XA Contusion of unspecified part of head, initial encounter (principal); R55 Syncope and collapse; R51.9 Headache, unspecified; M54.2 Cervicalgia; W18.30XA Fall on same level, unspecified, initial encounter; Y93.9 Activity, unspecified; Y92.9 Unspecified place or not applicable; Y99.9 Unspecified external cause status; Z20.822 Contact with and (suspected) exposure to COVID-19; Z20.828 Contact with and (suspected) exposure to other viral communicable diseases; Z79.899 Other long term (current) drug therapy
CPT/HCPCS: 0241U; 70450; 72125; 80048; 80076; 81001; 81003; 83690; 83735; 84484; 85025; 85610; 85730; 87086; 93005; 99284; 99285

== ENCOUNTER 2023-03-04 10:46 | Outpatient (REF) | payer OTHER, MEDICAID, SELFPAY ==
--- NOTE | ~2023-03-04 | XR_ITS ---
EXAMINATION: XR CHEST XR WRIST, RIGHT CLINICAL INDICATIONS: Pain right wrist and cough. TECHNIQUE: Right wrist 3 views. Chest 2 views. COMPARISON: Right wrist 01/21/2023. FINDINGS: RIGHT WRIST: There is a healing distal radial fracture with callus formation and sclerosis. No additional fracture seen. There is diffuse significant osteopenia/osteoporosis. No new acute fracture seen. No dislocation. CHEST: The lungs are well expanded and clear. The heart size and pulmonary vascularity is normal. No gross bony abnormality seen. XR/XR wrist RT min 3V IMPRESSION: Old healing distal radial fracture with callus formation and sclerosis. No new acute fracture. Severe osteoporosis. Unremarkable chest exam.
== END 2023-03-04 10:47 | disposition home or self-care (01) ==
LOC: HO.HOSX 10:46
PROVIDERS: Visit Provider Physician Assistant
DX: S52.501D Unspecified fracture of the lower end of right radius, subsequent encounter for closed fracture with routine healing (principal); Z79.891 Long term (current) use of opiate analgesic; Z79.899 Other long term (current) drug therapy; X58.XXXD Exposure to other specified factors, subsequent encounter
CPT/HCPCS: 73110; 99212

== ENCOUNTER 2023-03-15 10:58 | Outpatient (REF) | payer OTHER, MEDICAID, SELFPAY ==
--- NOTE | ~2023-03-15 | XR_ITS ---
EXAMINATION: XR CHEST XR WRIST, RIGHT CLINICAL INDICATIONS: Pain right wrist and cough. TECHNIQUE: Right wrist 3 views. Chest 2 views. COMPARISON: Right wrist 01/21/2023. FINDINGS: RIGHT WRIST: There is a healing distal radial fracture with callus formation and sclerosis. No additional fracture seen. There is diffuse significant osteopenia/osteoporosis. No new acute fracture seen. No dislocation. CHEST: The lungs are well expanded and clear. The heart size and pulmonary vascularity is normal. No gross bony abnormality seen. XR/XR chest 2V IMPRESSION: Old healing distal radial fracture with callus formation and sclerosis. No new acute fracture. Severe osteoporosis. Unremarkable chest exam.
== END 2023-03-15 10:59 | disposition home or self-care (01) ==
LOC: HO.XRAY 10:58
PROVIDERS: PCP Family Medicine; Visit Provider Family Medicine
DX: R05.9 Cough, unspecified (principal)
CPT/HCPCS: 71046

== ENCOUNTER 2023-04-15 08:35 | Outpatient (REF) | payer OTHER, MEDICAID, SELFPAY | END 2023-04-15 08:36 | disposition home or self-care (01) | LOC: HO.HOSX 08:35 | PROVIDERS: Visit Provider Physician Assistant | DX: Z13.89 Encounter for screening for other disorder (principal) ==

== ENCOUNTER 2023-04-26 07:53 | Outpatient (REF) | payer OTHER, MEDICAID, SELFPAY | END 2023-04-26 07:54 | disposition home or self-care (01) | LOC: HO.HOSX 07:53 | PROVIDERS: Visit Provider Physician Assistant | DX: Z13.89 Encounter for screening for other disorder (principal) ==

== ENCOUNTER 2023-07-03 09:03 | Outpatient (REF) | payer OTHER, MEDICAID, SELFPAY ==
--- NOTE | ~2023-07-03 | XR_ITS ---
EXAMINATION: XR WRIST, RIGHT CLINICAL INFORMATION: Right wrist pain COMPARISON: 03/04/2023, 01/16/2023 TECHNIQUE: PA, lateral, and oblique views of the right wrist. FINDINGS: There is diffuse osteopenia. There is a healing impacted fracture of the distal metaphysis of the radius. There is dorsal angulation of the articular surface of the radius which appears unchanged. There is a healing fracture of the styloid process of the ulna. No acute fracture is seen. The joint spaces appear preserved. XR/XR wrist RT min 3V IMPRESSION: Healing fractures of the distal radius and ulna without interval change in alignment. No acute abnormality is demonstrated.
== END 2023-07-03 09:04 | disposition home or self-care (01) ==
LOC: HO.HOSX 09:03
PROVIDERS: Visit Provider Physician Assistant
DX: S52.501A Unspecified fracture of the lower end of right radius, initial encounter for closed fracture (principal)
CPT/HCPCS: 73110; 99212

== ENCOUNTER 2023-07-03 13:07 | Outpatient (AMB) | payer OTHER, MEDICAID, SELFPAY ==
--- NOTE | 2023-07-03 13:23 | A.OFFVIS_ITS ---
Intake Intake Visit Reasons: ov- Fracture of right distal radius Intake Note: Norma a 77 year old female who presents for a follow up of right distal radius fracture from 01/10/23. Patient reports she is doing well, denies pain or discomfort. She continues to have stiffness. Patient has complaints of right shoulder pain. Allergies lisinopril Allergy (Verified 07/03/23 13:25) Cough Pt states no known allergy to Allergy (Unknown, Uncoded 07/03/23 13:25) Unknown HPI ov- Fracture of right distal radius HPI Details 77-year-old female who returns to the office today with an echocardiograph technician for a follow-up of right distal radius fracture, 01/10/23. She states she has no pain or discomfort and is doing well overall. [facility] Medical History (Updated 04/12/23 @ 10:30 by Karley Villareal) Essential hypertension GI bleed Mixed hyperlipidemia Mood disorder Social History Household Members: None Housing: Apartment Do you presently have visiting nurse or other home services: Yes Alcohol intake: never Patient Tobacco Use Status: Never used Tobacco service: No Current occupational status: disabled Review of Systems Const All systems reviewed & are unremarkable except as noted in HPI and below Physical Exam Extrem Other: Right wrist: Normal to inspection. She has no pain with palpation over the fracture site. She has full ROM without limitations. She can supinate and pronate without pain. NVI. Results Reviewed Results Reviewed: X-rays of the right wrist obtained in the office today show well healed distal radius fracture. Assessment & Plan Assessment & Plan (1) Fracture of right distal radius: Code(s): S52.501A - Unspecified fracture of the lower end of right radius, initial encounter for closed fracture Plan She will continue to work on activities as tolerated. We will defer on physical therapy at this time as she has no significant limitations and she will see me back as symptoms arise, otherwise as needed. Orders: Orders XR wrist RT min 3V Today M25.531 - Pain in right wrist Patient Instructions: Scribed for Margie Gonzalez PA-C, by Jose Che senior medical writer, on 07/03/2023 at 1:15 PM EST. IMargie PA-C, have personally reviewed and agree with the information entered by the scribe. Coding Level of Care Code Est Pt Level 3 (61469) Diagnoses Fracture of right distal radius S52.501A
== END 2023-07-03 13:31 | disposition home or self-care (01) ==
PROVIDERS: PCP Family Medicine; Visit Provider Physician Assistant
DX: S52.501A Unspecified fracture of the lower end of right radius, initial encounter for closed fracture (principal)
CPT/HCPCS: 99213

== ENCOUNTER 2024-10-21 11:51 | Outpatient (REF) | payer OTHER, SELFPAY ==
--- OUTSIDE RECORDS SUMMARY | 2024-10-21 11:53 | XMS_ITS | Continuity of Care Document ---
Author Organization [employer] [facility] Address [address] [place] [address] Care Team Providers Care Social Worker Palliative Care Name Role Phone [facility] Referring Provider HIM [facility] OTHER Assessment Encounter Date Assessment Date Assessment LastModified by Organization Details LastModified Time 07/28/2024 07/28/2024 I provided real -time medical direction via phone for this encounter, and was available for additional phone based assistance as needed. I have reviewed and agree with the Assessment and Plan as documented by the [employer]. We discussed the diagnostic uncertainty of home visits and the risk associated with this. In this case the patient and I felt this to be an acceptable and reasonable amount of risk given the benefit of avoiding an ED visit. The patient /daughter given the opportunity to ask questions. Advised if develops CP/severe SOB/turning blue/neck tightness, difficulty swallowing, uncontrolled n/v/d or black/bloody emesis or stool/ AMS/ syncope/ hi fever while on APAP to call 911- they verbalized understanding of instructions to the medic [email or web address] Not available 07/28/2024 13:55:15 Plan of Treatment Reminders Order Date Submit Date Provider Last Modified By Organization Details Last Modified Time Details Appointments None recorded. Lab BMP, serum or plasma 2023 024 [email or web address] 0 [facility], [address] [place], [address], 13:56:34 Referral None recorded. Procedures None recorded. Surgeries None recorded. Imaging None recorded. Medication Orders ketorolac 30 mg/mL injection solution 2023 024 [email or web address] 0 [facility], [address], [place], [place], [phone], 13:56:34 Patient TargetsNo targets recorded. Patient InstructionsNo instructions recorded. Reason for Referral None Reported. Results Created Date Observation Date Name Description Value Unit Range Abnormal Flag Note LastModifiedBy Organization Detail LastModifiedTime Result Notes None recorded. Medical Equipment None Reported. Allergies Allergen ID Allergen Name Allergen Category Reaction Reaction Severity Criticality Documentation Date Start Date Code Code System Note Provider Name and Address Organization Details Recorded Time 6307 lisinopri l medicatio n Not available Not available Not available 07/28/2024 [id number] RxNorm Laurie Landin MD [address] [place] [address],[address], [place], [phone], [facility] 13:30:34 Medications Name Sig Start Date Stop Date Status Note LastModified by Organization Details LastModified Time medbox status USE DIRECTED active Not Available Not Available No t Available losartan 50 mg tablet TAKE 1 TABLET BY MOUTH EVERY MORNING active Not Available Not Available No t Available lamotrigine 200 mg tablet TAKE 1 TABLET BY MOUTH AT BEDTIME active Not Available Not Available No t Available albuterol sulfate 2.5 mg/3 mL (0.083 %) solution for nebulization INHALE 1 AMPULE USING A NEBULIZER FOUR TIMES DAILY NEEDED active Not Available Not Available No t Available cetirizine 10 mg tablet TAKE 1 TABLET BY MOUTH ONCE DAILY FOR ALLERGY active Not Available Not Available No t Available atorvastatin 10 mg tablet TAKE 1 TABLET BY MOUTH EVERY EVENING active Not Available Not Available No t Available tramadol 37.5 mg-acetamino phen 325 mg tablet TAKE 1 TABLET BY MOUTH EVERY 6 HOURS FOR 7 DAYS active Not Available Not Available No t Available clindamycin HCl 150 mg capsule TAKE 1 CAPSULE BY MOUTH FOUR TIMES DAILY UNTIL FINISHED active Not Available Not Available No t Available melatonin 3 mg tablet TAKE 1 TABLET BY MOUTH AT BEDTIME PRIOR TO MEALS active Not Available Not Available No t Available chlorthalido ne 25 mg tablet TAKE 1 TABLET BY MOUTH EVERY MORNING active Not Available Not Available No t Available doxepin 10 mg capsule TAKE 1 CAPSULE BY MOUTH AT BEDTIME FOR SLEEP active Not Available Not Available No t Available acetaminophe n 500 mg tablet TAKE 1 TABLET BY MOUTH EVERY 8 HOURS NEEDED FOR PAIN active Not Available Not Available No t Available ascorbic acid (vitamin C) 250 mg tablet TAKE 1/2 TABLET BY MOUTH EVERY MORNING active Not Available Not Available No t Available benzonatate 100 mg capsule Take 1 capsule 3 times a day by oral route as needed, for cough. 2023 active Not Available Not Available Not Avai lable montelukast 10 mg tablet TAKE 1 TABLET BY MOUTH AT BEDTIME active Not Available Not Available No t Available ibuprofen 600 mg tablet TAKE 1 TABLET BY MOUTH EVERY 6 HOURS NEEDED FOR MODERATE PAIN active Not Available Not Available No t Available morphine 15 mg immediate release tablet TAKE 1 TABLET BY MOUTH EVERY 6 HOURS NEEDED FOR PAIN active Not Available Not Available No t Available ondansetron 4 mg disintegrati ng tablet DAILY 1 TABLET ON TONGUE EVERY 8 HOURS NEEDED FOR NAUSEA AND VOMITING active Not Available Not Available No t Available fluticasone propionate 50 mcg/actuatio n nasal spray,suspen jarod INHALE 1 SPRAY IN EACH NOSTRIL ONCE DAILY active Not Available Not Available N ot Available loratadine 10 mg tablet TAKE 1 TABLET BY MOUTH ONCE DAILY NEEDED active Not Available Not Available No t Available Ventolin HFA 90 mcg/actuatio n aerosol inhaler INHALE 2 PUFFS EVERY 4 HOURS NEEDED FOR WHEEZING OR SHORTNESS OF BREATH active Not Available Not Available No t Available bupropion HCl XL 300 mg 24 hr tablet, extended release TAKE 1 TABLET BY MOUTH EVERY MORNING active Not Available Not Available No t Available bupropion HCl XL 150 mg 24 hr tablet, extended release TAKE 1 TABLET BY MOUTH EVERY MORNING active Not Available Not Available No t Available duloxetine 20 mg capsule,twan yed release TAKE 1 CAPSULE BY MOUTH EVERY MORNING active Not Available Not Available No t Available duloxetine 30 mg capsule,twan yed release TAKE 1 CAPSULE BY MOUTH EVERY MORNING active Not Available Not Available No t Available duloxetine 60 mg capsule,twan yed release TAKE 1 CAPSULE BY MOUTH EVERY MORNING active Not Available Not Available No t Available ramelteon 8 mg tablet TAKE 1 TABLET BY MOUTH AT BEDTIME active Not Available Not Available No t Available cholecalcife rol (vitamin D3) 25 mcg (1,000 unit) tablet TAKE 1 TABLET BY MOUTH EVERY EVENING active Not Available Not Available No t Available FeroSul 325 mg (65 mg iron) tablet TAKE 1 TABLET BY MOUTH EVERY MORNING active Not Available Not Available No t Available GaviLyte-G 236 gram-22.74 gram-6.74 gram-5.86 gram oral solution MIX WITH WATER AND DRINK 240 ML BY MOUTH EVERY 10 MINUTES UNTIL FECAL EFFLUENT IS CLEAR DIRECTED active Not Available Not Available No t Available blood pressure test kit-large cuff USE TO CHECK BLOOD PRESSURE TWICE A WEEK active Not Available Not Available No t Available ketorolac 30 mg/mL injection solution 30 mg IM x1 2023 active Not Available Not Available Not [employer] charisse Emily COVID-19 Ag Self Test kit Use as Directed on the Package active Not Available Not Available Not Available Paxlovid 300 mg (150 mg x 2)-100 mg tablets in a dose pack TAKE 1 TABLET (150 MG) OF NIRMATRELVI R & 1 TABLET (100 MG) OF RITONAVIR BY MOUTH TWICE DAILY FOR 5 DAYS active Not Available Not Available N ot Available Paxlovid 150 mg-100 mg tablets in a dose pack (Renal Dose) Take 2 tablets twice a day by oral route for 5 days. 2023 active Not Available Not Available Not Ramsey mcqueen Vitals Date Recorded Respiratory rate Oxygen saturation Oxygen saturation in Arterial blood by Pulse oximetry Body height Heart rate Body weight Body temperature Systolic blood pressure Diastolic blood pressure Provider Name and Address Organization Details Last Updated DateTime 4 16 /min 96 % 96 % 139.7 cm 77 /min 66694.7 84 g 98.6 [degF] 158 mm[Hg] 88 mm[Hg] Not Available [facility] - production 13:29:34 Social History None recorded. Functional Status None recorded. Mental Status None recorded. Family History Nothing Reported. Medical History No medical history recorded. Gynecological HistoryNo gynecological history recorded. Obstetrics History GPAL:G 0 P 0 0 0 0 Past Encounters Encounter ID Performer Location Encounter Start Date Encounter Closed Date Diagnosis/Indication Diagnosis SNOMED-CT Code Diagnosis ICD10 Code [id number] Laurie Landin MD [facility] [address] [place] [phone] 07/28/2024 13:29:03 07/30/2024 07:59:28 Pain in left arm 555821752 M79.602 Health Concerns Section Related Observation LastModified by Organization Detai ls LastModified Time None Recorded Concern Status LastModified by Organization Details LastModified Time None Recorded Payers Encounter Date Sequence Insurance Name Policy Number Policy Antunez Covered Member ID Antunez Member ID Guarantor Name 07/28/2024 1 [facility] - DOS ON OR AFTER 2023 - DUAL ELIGIBLE - LONG-TERM OPTIONS AND ONE CARE (MEDICARE REPLACEMENT/ADV ANTAGE - HMO) Norma Francis [id number] Norma Francis Notes Date Note Type Note Provider Name and Address Organization Details Recorded Time 07/28/2024 text/html HPI: Call returned to Norma Francis to triage below. Spoke with daughter Pankaj who is on HIPAA. Reports pt had Flu vaccine administered on 07/22. Three days later pt began to have pain of shoulder and upper back and neck. Pt has been given Tyelnol. Pt also had warm compresses. Per daughter mild swelling yesterday. No redness, rash or bruising. Has limited ROM. Only able to raise up to chest area. Pt daughter offered WIC. Declines but prefers [facility] eval. [facility] referral submitted. Address and phone number verified. .................. .................. .................. .................. .................. .................. .................. ............... [facility] Nurse Triage Notes (Maritza Melgar): Chief Complaints: Pain PMH: COPD/Asthma, Hypertension, COPD/Asthma Other Allergies: jude inhibitors Comments: HPI reviewed. No further information needed to process visit. [employer] Organization Information for Matthew Barnesnikolay Legal Name: [employer].? ? Address: [address] [place] [address], [place] [address], Conductor Orchestra: Gilles Blount MD CLIA No.: [id number] [employer] POC Test Results from Matthew Barnes JesseT Chem8+ (13:44:13) Na: 142 mEq/L K: 3.8 mEq/L Cl: 107 mEq/L iCa: 1.23 mmol/L TCO2: 25 mmol/L Glu: 93 mg/dL BUN: 20 mg/dL Crea: 0.9 mg/dL Hct: 36 % Hb: 12.2 g/dL A .................. .................. .................. .................. .................. .................. .................. ............... [employer] Note From Matthew Barnes: Dispatched to the call address for the female with pain. Pt states last week she received her flu vaccine in her left arm, she felt fine for a couple of days but after about the 3rd day she started having left arm pain. Since then the pain has started to radiated to her shoulder/neck/back . She advises she cannot lift her arm above her shoulder. She denies fevers, trauma, chest pain of difficulty breathing. Pt has full range of motion from the elbow down and has equal child care attendant school strengths. Pt has been taking Tylenol without much effect.Pt was found sitting on living room couch, CAOx4, airway open and patent, breathing non labored, able to speak in full sentences, -JVD, -HEENT, skin PWD with good turgor, abd soft non tender/distended, pupils PERRL, +CMSx4, Pt has swelling to anterior left shoulder with tenderness, -bruising, heat from area or erythema. Afebrile, FAST ED 0. [facility] consulted. Blood draw, CHEM 8. [facility] advised of results. Pt given 30mg IM Ketorolac (right deltoid), advised to use alternating ice/heat and follow up with PCP. Red flags discussed. ALL times are approx. .................. .................. .................. .................. .................. .................. .................. ............... Disposition: FulfilledSEGMD: As above. Patient denies prior flu vaccine reaction. Allergies reviewed with patient and daughter. She denies fevers, chills, sweats, pain on range of motion of her neck, any dysphagia or dysphonia Laurie Landin MD [address] [place] [address],[address], [place], [address], [place] [facility] 07/28/2024 22:58:58 OBGyn Episode No OBEpisode recorded.
--- OUTSIDE RECORDS SUMMARY | 2024-10-21 11:53 | XMS_ITS | Data Portability ---
Author Organization [facility] Address [address] [place] [address] Care Team Providers Care Joint Setter Name Role Phone [facility] Referring Provider HIM CCA OTHER Assessment Encounter Date Assessment Date Assessment LastModified by Organization Details LastModified Time 03/13/2023 03/13/2023 Ms. Norma Francis is a 77yoF w/ a Pmhx of HTN, frequent falls who is seen today for dizziness. Ms. Francis and her daughter report that she has had longstanding dizziness that has made it difficult for her to ambulate. She reports that she has a walker for assistance, but fell recently and sustained a R wrist fracture. Over the past two days she has noticed her dizziness seems to have worsened in conjunction with a new productive cough. She denies fevers, nausea/vomiting. Dizziness is worse with movement, in particular going from a sitting to standing position. She is unable to qualify sputum production because she does not look at it. VSS. Railway Track Worker on site reports no acute distress, orthostatics negative. Rhonchi noted scattered throughout lungs, no pedal edema. POC COVID and flu negative. Suspect viral URI leading to worsening of chronic symptoms, no fevers or focal lung findings to suggest bacterial PNA and no focal worsening or change to suggest acute neurologic event. Will trial a dose of meclizine and 500mL of IVF to see if symptoms improve. Unable to establish IV access, but patient encouraged to increase PO fluids--notes that she is not feeling particularly dizzy in this moment but will contact her PCP if the meclizine helps her. Primary team, Ms. Francis would benefit from a visit in the next week or so to discuss additional home safety precautions and ensure her cough has improved. [email or web address] Not available 03/13/2023 15:05:42 07/28/2024 07/28/2024 I provided real -time medical direction via phone for this encounter, and was available for additional phone based assistance as needed. I have reviewed and agree with the Assessment and Plan as documented by the Railway Track Worker. We discussed the diagnostic uncertainty of home [...] verbalized understanding of instructions to the medic [email or web address] Not available 07/28/2024 13:55:15 Plan of Treatment Reminders Order Date Submit Date Provider Last Modified By Organization Details Last Modified Time Details Appointments None recorded. Lab BMP, serum or plasma [email or web address], [address], 13:56:34 Referral None recorded. Procedures None recorded. Surgeries None recorded. Imaging None recorded. Medication Orders Paxlovid 150 mg-100 mg tablets in a dose pack (Renal Dose) 2023 [facility], [address] [place] [address], [id number], 4 17:34:42 benzonatate 100 mg capsule 2023 [facility], [address] [place] [address], [id number], 4 13:47:49 Flonase Allergy Relief 50 mcg/actuati on nasal spray,suspe nsion 2023 [facility], [address] [place] [address], [id number], 4 17:13:24 cetirizine 10 mg tablet 2023 [facility], [address] [place] [address], [id number], 4 17:13:24 ketorolac 30 mg/mL injection solution 2023 024 [email or web address] 0 [facility], [address] [place] [address], [id number], 4 13:56:34 Patient TargetsNo targets recorded. Patient InstructionsNo [...] Name and Address Organization Details Recorded Time 3447 lisinopri l medicatio n Not available Not available Not available 07/28/2024 [id number] RxNorm Laurie Landin MD [address] [place] [address],[address], [place], [phone], [facility] 13:30:34 Medications Name Sig Start Date Stop [...] Not Available Not Available Not Ramsey mcqueen BinaxNOAzeem COVID-19 Ag Self Test kit Use as [...] Available Not Ramsey mcqueen Vitals Date Recorded Oxygen saturation Oxygen saturation in Arterial blood by Pulse oximetry Body weight Heart rate Respiratory rate Body temperature Systolic blood pressure Diastolic blood pressure Provider Name and Address Organization Details Last Updated DateTime 4 100 % 100 % 10468.7 44 g 98 /min 16 /min 97.8 [degF] 150 mm[Hg] 80 mm[Hg] Not Available [employer] 4 13:31:55 Date Recorded Body temperature Respiratory rate Heart rate Oxygen saturation Oxygen saturation in Arterial blood by Pulse oximetry Systolic blood pressure Diastolic blood pressure Provider Name and Address Organization Details Last Updated DateTime 4 99.1 [degF] 18 /min 70 /min 95 % 95 % 148 mm[Hg] 72 mm[Hg] Not Available [employer] 4 08:24:32 Date Recorded Respiratory rate Oxygen saturation Oxygen saturation in Arterial blood by Pulse oximetry Body height Heart rate Body weight Body temperature Systolic blood pressure Diastolic blood pressure Provider Name and Address Organization Details Last Updated DateTime 4 16 /min 96 % 96 % 139.7 cm 77 /min 48531.7 84 g 98.6 [degF] 158 mm[Hg] 88 mm[Hg] Not Available [employer] - production 4 13:29:34 Date Recorded Body temperature Heart rate Body weight Oxygen saturation Oxygen saturation in Arterial blood by Pulse oximetry Respiratory rate Body weight Body temperature Heart rate Respiratory rate Oxygen saturation Oxygen saturation in Arterial blood by Pulse oximetry Systolic blood pressure Diastolic blood pressure Systolic blood pressure Diastolic blood pressure Provider Name and Address Organization Details Last Updated DateTime 3 97.1 [degF] 82 /min 98560.2 96 g 99 % 99 % 14 /min 74805.2 96 g 97.1 [degF] 82 /min 14 /min 99 % 99 % 142 mm[Hg] 77 mm[Hg] 142 mm[Hg] 77 mm[Hg] Not Available [employer] 3 15:25:19 Social History None recorded. Functional Status None recorded. Mental Status None recorded. Family History Nothing Reported. Medical History No medical history recorded. Gynecological HistoryNo gynecological history recorded. Obstetrics History GPAL:G 0 P 0 0 0 0 Past Encounters Encounter ID Performer Location Encounter Start Date Encounter Closed Date Diagnosis/Indication Diagnosis SNOMED-CT Code Diagnosis ICD10 Code [id number] Graciela Costa MD [facility] [address] [place] [phone] 03/13/2023 14:42:10 03/14/2023 15:17:29 Dizziness [id number] R42 [id number] PEDRO MIGUEL MD [facility] [address] [place] [id number] 0 12/19/2023 13:31:53 12/19/2023 18:41:45 Acute COVID-19 [id number] U07.1 [id number] Allyn Lewis MD [facility] [address] [place] [address] [id number] 03/13/2024 08:24:31 03/15/2024 11:15:04 Cough 70351174 R05.9 [id number] Laurie Landin MD [facility] [address] [place] [id number] 07/28/2024 13:29:03 07/30/2024 07:59:28 Pain in left arm 982619978 M79.602 Health Concerns Section Related Observation LastModified by Organization Detai ls LastModified Time None Recorded Concern Status LastModified by Organization Details LastModified Time None Recorded Advance Directives Directive None Recorded Payers Encounter Date Sequence Insurance Name Policy Number Policy Antunez Covered Member ID Antunez Member ID Guarantor Name 03/13/2023 1 [facility] - DOS PRIOR TO 2023 - DUAL ELIGIBLE (MEDICARE REPLACEMENT/ADV ANTAGE - HMO) Norma Tito [id number] Norma Francis 12/19/2023 1 [facility] - DOS ON OR AFTER 2023 - DUAL ELIGIBLE - [employer] OPTIONS AND ONE CARE (MEDICARE REPLACEMENT/ADV ANTAGE - HMO) Norma Tito [id number] Norma Francis 03/12/2024 1 [facility] - DOS ON OR AFTER 2023 - DUAL ELIGIBLE - [employer] OPTIONS AND ONE CARE (MEDICARE REPLACEMENT/ADV ANTAGE - HMO) Norma Tito [id number] Norma Francis 07/28/2024 1 [facility] - DOS ON OR AFTER 2023 - DUAL ELIGIBLE - [employer] OPTIONS AND ONE CARE (MEDICARE REPLACEMENT/ADV ANTAGE - HMO) Norma Tito [id number] Norma Francis Notes Date Note Type Note Provider Name and Address Organization Details Recorded Time 03/13/2023 text/html HPI: Pt reports dizziness, spinning/tilting of room. ..................... ..................... ..................... ..................... ..................... ..................... ............... CRC Nursing Assessment: Comments: CRC RN DID NOT NEED FURTHER INFO ..................... ..................... ..................... ..................... ..................... ..................... ............... Railway Track Worker Note From Domo Rogel: Pt complains of increased dizziness when standing after sitting for extended time. Pts daughter reports a fall recently, that resulted in a right wrist injury to the pt and also reports an acute wet cough that started 2 days ago. Pt presents COAX 4 resting comfortably. Skin PWD, HEENT, unremarkable, PERRL, airway patent with adequate tidal volume and diffuse rhonci in all roberts. abdomen is soft and non distended in all quadrants. Arms and legs unremarkable bilaterally with CMS intact. VS stable and orthostatic VS has no significant change. POC Flu and Covid - , BGL 119mg/di and pt afebrile. [facility] contacted who prescribed 25mg Meclizine PO and offered the pt 500cc LR IV to assess if it made her feel better. Pt was administered Meclizine as directed but IV access was not able to be successfully established due to pts poor vascular access despite 2 different water trainer attempts. [facility] was updated with progress of call and pt was told to hydrate orally with water and to follow up with PCP and Pt was educated on S/SX that would indicate 911/ED visit. ..................... ..................... ..................... ..................... ..................... ..................... ............... Disposition: Fulfilled Graciela Costa MD [address], [place], [address], [employer] 03/13/2023 15:30:22 12/19/2023 text/html CRC Nurse Triage Notes (Katerina Riggins): Reason For Request: Covid positive Chief Complaints: Weakness/Lethargy, Shortness of Breath/Dyspnea, ENT, Cough PMH: Hypertension Comments: Daughter called in requesting visit because member tested positive for covid yesterday. Looking for respiratory assessment and to determine if she is a good candidate for paxlovid. Denies fever but does have a cough and some SOB. Symptoms started yesterday after being exposed to a +family member on Saturday. Allergic to CHUCK inhibitors and member is on lipitor. Med list available in the house. Lynette Riggins RN ..................... ..................... ..................... ..................... ..................... ..................... ............... Railway Track Worker Note From Perry Hardin: Pt co cough headache sore throat nasal congestion since Saturday. Covid positive diagnosis yesterday. Daughter wanted pt evaluated. Pt denies cp sob fever nausea vomiting or diarrhea. Baseline vitals assessed. POc bloodwork attempted but unsuccessful due to poor vasculature. Lungs clear , afebrile. Pt resting comfortably watching tv. [facility] contacted and 1/2 dose paxlovid RX. Pt and daughter educated on signs indicating the ER. ..................... ..................... ..................... ..................... ..................... ..................... ............... Disposition: Jean MIGUEL MD [address] [place] [address],[address], [place], [address], [place] [employer] [facility] 12/19/2023 14:30:16 03/12/2024 text/html HPI: Patient with greater than one week of cough. Cough is dry with severe spasms. No phlegm no fever. ..................... ..................... ..................... ..................... ..................... ..................... ............... CRC Nurse Triage Notes (Christianne Morley): Comments: CRC RN DID NOT FURTHER INFO Railway Track Worker POC Test Results from Hever Pryor - CHRISS Rapid influenza antigen (1) [15:44] Flu: - Rapid strep test (1) [15:44] Strep: - ..................... ..................... ..................... ..................... ..................... ..................... ............... Railway Track Worker Note From Hever Pryor: pt complains of X2 weeks of having persistent cough. pt cough is dry with no production occurring. pt is acively looking for assistance with this symptom. Pt takes otc cough medication, robitussin for assistance with no relief. Pt also has an albuterol inhaler, and a breathing treatment. pt has not used inhaler. Pt denies any pain, NAD, N/V/D, no headache. Gait steady at baseline. pt states she is having an increase in nasal drip particularly at night. Pt is CAOX4 with a GCS of 15. Vitals are WNL pt. is AFebrie. Upon exam no trauma,no CP, lung sounds clear in all roberts, unremarkable Abdominal exam. No LE edema, postive CSM in all extemities. non focal neuro exam. Covid Flu exam negativeconsult with [facility] pt is prescribed albuterol, spacer for inhaler,zyrtec and flonaze, as well as saline flushes to be taken throughout the day. Benzonatate also presribed for persistent cough. Pt educated on all medications. pt told informed to monitor for any new and or worsening symptoms. Pt informed to call emergency services if any emergent symptoms present which were taught to patient. ..................... ..................... ..................... ..................... ..................... ..................... ............... Disposition: Jean Lewis MD [address] [facility],[address], [place], [address], [facility] 03/13/2024 09:55:36 07/28/2024 text/html HPI: Call returned to Norma [...] referral submitted. Address and phone number verified. ..................... ..................... ..................... ..................... ..................... ..................... ............... CRC Nurse Triage Notes (Maritza Melgar): Chief Complaints: Pain PMH: COPD/Asthma, Hypertension, COPD/Asthma Other Allergies: chuck inhibitors Comments: HPI reviewed. No further information needed to process visit. Railway Track Worker Organization Information for Matthew Barnes Legal Name: [employer] ? Address: [address] [place] [address], Merchant Seaman: Gilles Blount MD CLIA No.: [id number] Railway Track Worker POC Test Results from [facility] iSTAT Chem8+ (13:44:13) Na: 142 mEq/L K: 3.8 mEq/L Cl: 107 mEq/L iCa: 1.23 mmol/L TCO2: 25 mmol/L Glu: 93 mg/dL BUN: 20 mg/dL Crea: 0.9 mg/dL Hct: 36 % Hb: 12.2 g/dL A ..................... ..................... ..................... ..................... ..................... ..................... ............... Railway Track Worker Note From Matthew Barnes: Dispatched to the call address for the female with pain. Pt states last week she received her flu vaccine in her left arm, she felt fine for a couple of days but after about the 3rd day she started having left arm pain. Since then the pain has started to radiated to her shoulder/neck/back. She advises she cannot lift her arm above her shoulder. She denies fevers, trauma, chest pain of difficulty breathing. Pt has full range of motion from the elbow down and has equal gleason operator strengths. Pt has been taking Tylenol without [...] Red flags discussed. ALL times are approx. ..................... ..................... ..................... ..................... ..................... ..................... ............... Disposition: FulfilledSEGMD: As above. Patient denies prior flu vaccine reaction. Allergies reviewed with patient and daughter. She denies fevers, chills, sweats, pain on range of motion of her neck, any dysphagia or dysphonia Laurie Landin MD [address] [place] [address],[address], [place], [address], [facility] 07/28/2024 22:58:58 OBGyn Episode No OBEpisode recorded.
--- OUTSIDE RECORDS SUMMARY | 2024-10-21 11:54 | XMS_ITS | Clinical Summary ---
Author Organization Unknown Care Team Providers Care Color Corrector Name Role Phone CONSTANZA VENKAT JOHN [employer] le Payers Payer Name Policy Type Policy Number Effective Date Expira tion Date CCA BONE DENSITY PROGRAM [id number] Problems Condition Name Condition Details Condition Category Status Onset Date Resolution Date Last Treatment Date Treating Clinician Comments AGE-RELATED OSTEOPOROSIS W/O CURRENT PATHOLOGICAL FRACTURE Active 01-10 00:00: 00 Allergies, Adverse Reactions, Alerts This patient has no known allergies or adverse reactions. Vital Signs Vital Name Observation Time Observation Value Commen ts Temperature 2023-09-14 14:11:00.000 98.2 [degF] Pulse 2023-09-14 14:11:00.000 84 /min Respirations 2023-09-14 14:11:00.000 20 /min Systolic Blood Pressure 2023-09-14 14:11:00.000 142 mm [Hg] Diastolic Blood Pressure 2023-09-14 14:11:00.000 72 mm [Hg] Reason for Visit INDEPENDENT IN THE HOME Encounters Start Date/Time End Date/Time Encounter Type Admission Type Attending [facility] Care Department Encounter ID Discharge Date Discharge Status Discharge Condition Discharge Reason Percent Goals Met 2023-09-07 00:00:00 2023-09-14 00:00:00 Outpatient READMISSIO N [facility] [id number] 00:00:00 DISCHARGE TO HOME OR SELF CARE INDEPENDEN T IN THE HOME CLIENT NO LONGER REQUIRES SKILLED CARE
[2024-10-21 13:57] LABS: MANUAL DIFF FLAG NO
[2024-10-21 14:01] LABS: Basophils Absolute Auto 0.1 X10*3/uL (0.0-0.2); Basophils Percent Auto 0.8 % (0-2); Eosinophils Absolute Auto 0.2 X10*3/uL (0.0-0.4); Eosinophils Percent Auto 1.7 % (0-4); Hematocrit 36.3 % (37.0-47.0); Hemoglobin 11.8 g/dl (12.0-16.0); Imm Gran Abs Auto 0.07 X10*3/uL (0.00-0.03); Imm Gran Pct Auto 0.6 % (0.0-0.4); Lymphocytes Absolute Auto 1.5 X10*3/uL (1.2-4.9); Lymphocytes Percent Auto 12.8 % (20-40); Mean Corpuscular HGB Conc 32.5 g/dl (31.0-35.0); Mean Corpuscular Hemoglobin 30.6 pg (27.0-33.0); Mean Corpuscular Volume 94.3 fL (80.0-98.0); Mean Platelet Volume 9.1 fL (9.4-12.3); Monocytes Absolute Auto 0.9 X10*3/uL (0.1-1.2); Monocytes Percent Auto 7.4 % (2-11); Neutrophils Absolute Auto 8.8 x10*3/uL (2.0-8.3); Neutrophils Percent Auto 76.7 % (45-73); Platelet Count 436 X10*3/uL (160-400); Red Blood Count 3.85 X10*6/uL (4.20-5.50); Red Cell Distribution Width 13.3 % (11.0-16.0); White Blood Count 11.5 X10*3/uL (4.8-10.8)
[2024-10-21 14:07] LABS: Estimated Average Glucose 111 mg/dL; Hemoglobin A1C 109.5606 umol/L; Hemoglobin A1c % 5.5 % (<6.0); Total Hemoglobin (HGBA1C) 3024.6198 umol/L
[2024-10-21 14:22] LABS: Alanine Aminotransferase 27 U/L (0-31); Albumin Level 3.6 g/dL (3.5-5.0); Alkaline Phosphatase 159 U/L (39-117); Anion Gap 12 (12-20); Aspartate Amino Transferase 24 U/L (5-31); Bilirubin Direct 0.3 mg/dL (0.0-0.5); Bilirubin Total 0.6 mg/dL (0.0-1.0); Blood Urea Nitrogen 17 mg/dL (9-16); Carbon Dioxide 27 mmol/L (22-29); Chloride 107 mmol/L (96-108); Estimated Glomerular Filt Rate > 60; Glucose Random 96 mg/dL (60-115); Iron 78 mcg/dL (30-160); Magnesium 2.2 mg/dL (1.6-2.6); Percent Iron Saturation 29 % (15-50); Potassium 3.6 mmol/L (3.3-5.1); Sodium 142 mmol/L (135-145); Total Iron Binding Capacity 273 mcg/dL (228-428); Total Protein 6.7 g/dL (6.5-8.0); Unsaturated Iron Binding 195 ug/dL
[2024-10-21 14:37] LABS: Vitamin B12 240 pg/mL (200-900)
[2024-10-21 14:40] LABS: Ferritin 323 ng/mL (10-250); TSH reflex Free T4 2.99 uIU/mL (0.32-4.0); Vitamin D 25-OH Total 40.7 ng/mL (>30)
[2024-10-24 18:03] LABS: TS Negative Control Passed; TS Panel A 0; TS Panel B 0; TS Positive Control Passed; TSpotTB Negative (Negative)
== END 2024-10-21 11:52 | disposition home or self-care (01) ==
LOC: HO.HHCL 11:51
PROVIDERS: Visit Provider Family Medicine
DX: Z98.84 Bariatric surgery status (principal); E66.01 Morbid (severe) obesity due to excess calories; Z11.1 Encounter for screening for respiratory tuberculosis; E55.9 Vitamin D deficiency, unspecified; Z13.1 Encounter for screening for diabetes mellitus
CPT/HCPCS: 36415; 80048; 80076; 82306; 82607; 82728; 83036; 83540; 83735; 84443; 85025; 86481

== ENCOUNTER 2025-01-07 14:10 | Outpatient (REF) | payer OTHER, SELFPAY ==
--- NOTE | ~2025-01-07 | XR_ITS ---
EXAMINATION: XR CHEST CLINICAL INFORMATION: cough for 3 weeks COMPARISON: Chest x-ray 03/15/2023 TECHNIQUE: 2 views of the chest were obtained. FINDINGS: No significant abnormality is noted involving the heart, lungs, mediastinum, bony thorax or soft tissues. XR/XR chest 2V IMPRESSION: Unremarkable chest examination. Electronically signed by: Sav Juan MD 01/07/2025 02:48 PM [facility]
--- OUTSIDE RECORDS SUMMARY | 2025-01-07 17:23 | XMS_ITS | Encounter Summary ---
Author Organization [facility] Address [address] 7[address] [place] [address] Care Team Providers Care Street Light Servicer Name Role Phone Vivien Morales MD Primary Care Provider [phone] Reason for Visit * Reason Onset Date Comments triage 03/13/2023 Encounter Details Date Type Department Care Team ([facility] st Contact Info) Description 03/13/2023 Telephone [facility] [address] [place] [address] Vivien Morales MD [address] [place] [address] triage Social History Tobacco Use Types Packs/Day Years Used Date Smoking Tobacco: Never Smokeless Tobacco: Never Alcohol Use Standard Drinks/Week Comments Never 0 (1 standard drink = 0.6 oz pur e alcohol) Depression Answer Date Recorded Patient Health Questionnaire-9 Score 11 02/14/2023 Depression Answer Date Recorded Patient Health Questionnaire-2 Score 4 02/14/2023 Comments Unknown Sex and Gender Information Value Date Recorded Sex Assigned at Female 09/03/2022 10:18 AM EDT Legal Sex Female 10:18 AM EDT Gender Identity Female 09/03/2022 10:18 AM EDT Sexual Orientation Straight 09/03/2022 10 :18 AM EDT COVID-19 Exposure Response Date Recorded In the last 10 days, have yo u been in contact with someone who was confirmed or suspected to have Coronavirus/COVID-19? No / Unsure 03/15/2023 9:20 AM EDT documented as of this encounter Miscellaneous Notes * Telephone Encounter - Geraldine Pena LPN - 03/15/2023 10:33 AM EDT Pt in visit with PCP w/dtr. Per PCP req for ltr was made patient unable to live alone. Letter done for PCP so patient could take letter with her today. Copy of letter to MR to scan for our records. * Telephone Encounter - Mel Heath RN - 03/13/2023 1:13 PM EDT Triage call with [email or web address] [facility] Specialist [place] [id number]. Pt reports dizziness for 3 days ago. Pt is describing this as room spinning / tilting of room is present. Pt is unable to get up from sitting, lying down without this dizziness. Pt also has some coughing and YANN symptoms. Pt is offered insted visit and Pt accepted. Will call for apt in home. Pt agrees with disposition. Protocol Used: Dizziness (Adult) Protocol-Based Disposition: See in Office or Video Visit Today Video visit not offered Positive Triage Questions: * Moderate dizziness (e.g., interferes with normal activities) (Exception: dizziness caused by heatexposure, sudden standing, or poor fluid intake) * Patient wants to be seen * All higher-acuity triage questions were negative Care Advice Discussed: * Reassurance and Education - Dizziness From Not Drinking Enough Liquids * Drink Fluids * Lie Down and Rest * Cool Off * Prevention * Reasons To Call Back - After 2 hours of rest and fluids And still feeling dizzy. - Passes out (faints). - You become worse. * Telephone Encounter - Dawood Parks - 03/13/2023 12:53 PM EDT Symptoms: Dizziness, Nausea But No Vomiting Outcome: Schedule an urgent appointment (within 4 hours) or talk to a nurse or provider soon Reason: Getting worse The caller accepted this outcome documented in this encounter Plan of Treatment Upcoming Encounters Date Type Department Care Team (Late st Contact Info) Description 01/29/2025 11:00 AM EDT Office Visit [facility] [address] [place] [address] Vivien Morales MD [address] [place] [address] documented as of this encounter Visit Diagnoses Not on filedocumented in this encounter Additional Health Concerns Assessment Noted Time PHQ-9 Depression Total Score: 11 02/14/ 023 11:17 AM EDT documented as of this encounter Care Teams Street Light Servicer Relationship Specialty Start Date End Date Vivien Morales MD [address] [place] [id number] PCP - General Family Medicine 06/19/17 Baudilio Childress MD Orthopaedic Surgery 10/20/24 Dr. Hien Garcia Psychiatry 10/20/24 documented as of this encounter
--- OUTSIDE RECORDS SUMMARY | 2025-01-07 17:23 | XMS_ITS | Encounter Summary ---
Author Organization [facility] Address [address] [place] [address] Care Team Providers Care Flume Worker Name Role Phone Vivien Morales MD Primary Care Provider [phone]- [phone] Reason for Visit * Reason Onset Date Comments Medication Question 02/06/2023 Encounter Details Date Type Department Care Team ([facility] st Contact Info) Description 02/06/2023 Telephone [facility] [address] [place] [address] Vivien Morales MD [address] [place] [address] Medication Question Social History Tobacco Use Types Packs/Day Years Used Date Smoking Tobacco: Never Assessed Comments Unknown Sex and Gender Information Value Date Recorded Sex Assigned at Female 09/03/2022 10:18 AM EDT Legal Sex Female 10:18 AM EDT Gender Identity Female 09/03/2022 10:18 AM EDT Sexual Orientation Straight 09/03/2022 10 :18 AM EDT documented as of this encounter Miscellaneous Notes * Telephone Encounter - Jocy Beach - 02/14/2023 10:05 AM EDT RX generated for pull ups and wipes * Telephone Encounter - Kala Rojo RN - 02/07/2023 1:36 PM EDT Return call to SVETLANA Baires. Discussed pt med list. Updates noted and pharmacy notified. Pt's daughter, alden Baires, requesting DME of incontinence briefs and wipes for night time incontinence. * Telephone Encounter - Caryn Brannon - 02/06/2023 11:44 AM EDT Tc from Viry SVETLANA requesting to speak with a nurse to review pt medication list . Best contact # [phone]. documented in this encounter Plan of Treatment Upcoming Encounters Date Type Department Care Team (Late st Contact Info) Description 01/29/2025 11:00 AM EDT Office Visit [facility] [address] [place] [phone] Vivien Morales MD [address] [place] [phone] documented as of this encounter Visit Diagnoses Not on filedocumented in this encounter Care Teams Flume Worker Relationship Specialty Start Date End Date Vivien Morales MD [address] [place] [address] [phone] PCP - General Family Medicine 06/19/17 Baudilio Childress MD Orthopaedic Surgery 10/20/24 Dr. Hien Garcia Psychiatry 10/20/24 documented as of this encounter
--- OUTSIDE RECORDS SUMMARY | 2025-01-07 17:23 | XMS_ITS | Encounter Summary ---
Author Organization [facility] Address [address] [facility] 7t [place] [address] Care Team Providers Care Gospel Singer Name Role Phone Vivien Morales MD Primary Care Provider +1- [phone] Encounter Details Date Type Department Care Team (Late st Contact Info) Description 11/20/2022 Abstract [facility] [address] [place] [phone] Vivien Morales MD [address] [place] [address] [phone] Social History Tobacco Use Types Packs/Day Years Used Date Smoking Tobacco: Never Assessed Comments Unknown Sex and Gender Information Value Date Recorded Sex Assigned at Female 09/03/2022 10:18 AM EDT Legal Sex Female 10:18 AM EDT Gender Identity Female 09/03/2022 10:18 AM EDT Sexual Orientation Straight 09/03/2022 10 :18 AM EDT documented as of this encounter Plan of Treatment Upcoming Encounters Date Type Department Care Team (Late st Contact Info) Description 01/29/2025 11:00 AM EDT Office Visit [facility] [address] [place] [address] [phone] Vivien Morales MD [address] [place] [address] [phone] documented as of this encounter Procedures Procedure Name Priority Date/Time Associated Diagnosis Comments MAMMOGRAPHY Routine 10/02/2021 COLONOSCOPY Routine 08/04/2016 PAP SMEAR Routine 06/04/2015 12:00 AM EDT documented in this encounter Results * Hm Mammography (10/02/2021) HM Mammogram BIRADS 2 Anatomical Region Laterality Modality Other Historical Provider HEALTH MAINTENANCE Final Result * Hm Colonoscopy (08/04/2016) Colonoscopy Dr. Cuello Historical Provider HEALTH MAINTENANCE Final Result * Pap Smear (06/04/2015 12:00 AM EDT) Swab Historical Provider LAB CYTOLOGY ORDERABLES F inal Result IMAGING documented in this encounter Visit Diagnoses Not on filedocumented in this encounter Care Teams Gospel Singer Relationship Specialty Start Date End Date Pendleton, MD Vivien [address] [place] [phone] PCP - General Family Medicine 06/19/17 Baudilio Childress MD Orthopaedic Surgery 10/20/24 Dr. Hien Garcia Psychiatry 10/20/24 documented as of this encounter
--- OUTSIDE RECORDS SUMMARY | 2025-01-07 17:23 | XMS_ITS | Encounter Summary ---
Author Organization [facility] Address [address] [facility] 7t [place] [address] Care Team Providers Care Operating Room Manager Name Role Phone Vivien Morales MD Primary Care Provider +1- [phone] Encounter Details Date Type Department Care Team (Late st Contact Info) Description 12/19/2022 Telephone [facility] [address] [place] [phone] Vivien Morales MD [address] [place] [address] [phone] Social History Tobacco Use Types Packs/Day Years [...] Description 01/29/2025 11:00 AM EDT Office Visit [facility] [address] [place] [phone] Vivien Morales MD [address] [place] [address] [phone] documented as of this encounter Visit Diagnoses Not on filedocumented in this encounter Care Teams Operating Room Manager Relationship Specialty Start Date End Date Vivien Morales MD [address] [place] [phone] PCP - General Family Medicine 06/19/17 Baudilio Childress MD Orthopaedic Surgery 10/20/24 Dr. Hien Garcia Psychiatry 10/20/24 documented as of this encounter
--- OUTSIDE RECORDS SUMMARY | 2025-01-07 17:23 | XMS_ITS | Encounter Summary ---
Author Organization [facility] Address [address] [facility] 7t [place] [address] Care Team Providers Care Mineral Surveying Technician Name Role Phone Vivien Morales MD Primary Care Provider +1- [phone] Reason for Visit * Reason Onset Date Comments ER Follow-up 01/31/2023 Encounter Details Date Type Department Care Team (Late st Contact Info) Description 01/31/2023 Telephone [facility] [address] [place] [address] Vivien Morales MD [address] [place] [address] ER Follow-up Social History Tobacco Use Types Packs/Day Years Used Date Smoking Tobacco: Never Assessed Comments Unknown Sex and Gender Information Value Date Recorded Sex Assigned at Female 09/03/2022 10:18 AM EDT Legal Sex Female 10:18 AM EDT Gender Identity Female 09/03/2022 10:18 AM EDT Sexual Orientation Straight 09/03/2022 10 :18 AM EDT documented as of this encounter Miscellaneous Notes * Telephone Encounter - Dawood Parks - 01/31/2023 2:50 PM EDT Sapna calling to report ED visit on at [facility]. 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 documented in this encounter Plan of Treatment Upcoming Encounters Date Type Department Care Team (Late st Contact Info) Description 01/29/2025 11:00 AM EDT Office Visit [facility] [address] [place] [address] Vivien Morales MD [address] [place] [address] documented as of this encounter Visit Diagnoses Not on filedocumented in this encounter Care Teams Mineral Surveying Technician Relationship Specialty Start Date End Date Vivien Morales MD [address] [place] [phone] PCP - General Family Medicine 06/19/17 Baudilio Childress MD Orthopaedic Surgery 10/20/24 Dr. Hien Garcia Psychiatry 10/20/24 documented as of this encounter
--- OUTSIDE RECORDS SUMMARY | 2025-01-07 17:24 | XMS_ITS | Continuity of Care Document ---
Author Organization [facility] Address [address] [place] [phone] Care Team Providers Care Restaurant Host/Hostess Name Role Phone [facility] Referring Provider HIM CCA OTHER Assessment Encounter Date Assessment Date Assessment LastModified by Organization Details LastModified Time 12/28/2024 12/28/2024 I provided real -time medical direction via phone for this encounter, and was available for additional phone based assistance as needed. I have reviewed and agree with the Assessment and Plan as documented by the Rn Occupational Health. We discussed the diagnostic uncertainty of home visits and the risk associated with this. In this case the patient and I felt this to be an acceptable and reasonable amount of risk given the benefit of avoiding an ED visit. The patient given the opportunity to ask questions. Advised if develops CP/severe SOB/turning blue/uncontrolle d n/v/d AMS/ syncope/ hi fever to call 911- she verbalized understanding of instruction with the medic [email or web address] Not available 12/28/2024 12:19:13 Plan of Treatment Reminders Order Date Submit Date Provider Last Modified By Organization Details Last Modified Time Details Appointments None recorded. Lab rapid SARS CoV 2 Ag, QL IA, respiratory specimen 2024 025 [email or web address] 0 [facility], [address] [place] [address], [phone], 5 07:58:54 rapid flu (A+B) 2024 025 [email or web address] 0 [facility], [address] [place] [address], [phone], 5 07:58:58 Referral None recorded. Procedures None recorded. Surgeries None recorded. Imaging None recorded. Medication Orders albuterol sulfate 2.5 mg/3 mL (0.083 %) solution for nebulizatio n 2024 025 [email or web address] 0 [facility], [address] [place] [address], [id number], 5 12:15:17 prednisone 20 mg tablet 2024 025 [email or web address] 0 [facility], [address] [place] [address], [id number], 5 12:15:36 prednisone 20 mg tablet 2024 025 [facility], [address] [place] [address], [id number], 5 17:45:21 albuterol sulfate HFA 90 mcg/actuati on aerosol inhaler 2024 025 [facility], [address] [place] [address], [id number], 5 17:45:23 benzonatate 200 mg capsule 2024 025 [facility], [address] [place] [address], [id number], 5 17:45:22 Patient TargetsNo targets recorded. Patient InstructionsNo instructions recorded. Reason for Referral None Reported. Results Created Date Observation Date Name Description Value Unit Range Abnormal Flag Note LastModifiedBy Organization Detail LastModifiedTime 12/28/1912/28/2024 rapid flu (A+B) Flu negati ve Not Available [facility] [address] [place] [address], [phone], 12/28/2024 12:14:11 12/28/19 25 12/28/2024 rapid SARS CoV 2 Ag, QL IA, respi rator y speci men rapid SARS CoV 2 Ag, QL IA, respiratory specimen negati ve Not Available [facility] [address] [place] [address], [phone], 12/28/2024 12:14:08 Result Notes None recorded. Medical Equipment None Reported. Allergies Allergen ID Allergen Name Allergen Category Reaction Reaction Severity Criticality Documentation Date Start Date Code Code System Note Provider Name and Address Organization Details Recorded Time 6308 lisinopri l medicatio n cough Not available Not available 07/28/2024 07666 [facility] aLurie Landin MD [address] [facility],[address], [place], [phone] [place] [address] [employer] 13:30:34 Medications Name Sig Start Date Stop [...] Available Not Available No t Available benzonatate 200 mg capsule Take 1 capsule 3 times a day by oral route. 2024 active Not Available Not Available Not Avai lable prednisone 20 mg tablet Take 2 tablets every day by oral route after meal(s) for 4 days. 2024 active start RX 12/29 as had dose in home today Not Available Not Available Not Available clindamycin HCl 150 mg capsule TAKE [...] Not Available No t Available albuterol sulfate HFA 90 mcg/actuatio n aerosol inhaler Inhale 2 puffs 4 times a day by inhalation route. 2024 active Not Available Not Available Not Avai lable morphine 15 mg immediate release tablet TAKE [...] Not Available Not Available Not Avai lable [facility]NOW COVID-19 Ag Self Test kit Use as Directed on the Package active Not Available Not Available No t Available Paxlovid 300 mg (150 mg x 2)-100 mg tablets in a dose pack TAKE 1 TABLET (150 MG) OF NIRMATRELV IR & 1 TABLET (100 MG) OF RITONAVIR BY MOUTH TWICE DAILY FOR 5 DAYS active Not Available Not Available No t Available Paxlovid 150 mg-100 mg tablets in a dose pack (Renal Dose) Take 2 tablets twice a day by oral route for 5 days. 2023 active Not Available Not Available Not Avai lable Vitals Date Recorded Oxygen saturation Oxygen saturation in Arterial blood by Pulse oximetry Heart rate Respiratory rate Body temperature Systolic blood pressure Diastolic blood pressure Provider Name and Address Organization Details Last Updated DateTime 5 97 % 97 % 78 /min 18 /min 99 [degF] 145 mm[Hg] 80 mm[Hg] Not Available [facility] - production 5 12:12:08 Social History None recorded. Functional Status None recorded. Mental Status None recorded. Family History Nothing Reported. Medical History No medical history recorded. Gynecological HistoryNo gynecological history recorded. Obstetrics History GPAL:G 0 P 0 0 0 0 Past Encounters Encounter ID Performer Location Encounter Start Date Encounter Closed Date Diagnosis/Indication Diagnosis SNOMED-CT Code Diagnosis ICD10 Code Diagnosis Note [id number] Laurie Landin MD [facility] - [facility] [address] [place] [phone] 12/28/2024 12:12:06 12/29/2024 09:52:32 Cough 57419485 R05.9 Possible viral URI possible asthma f.u with pcp regarding possible CXR if not improving within several days rest/ push po fluids Asthma 198607280 J45.90 9 Health Concerns Section Related Observation LastModified by Organization Detai ls LastModified Time None Recorded Concern Status LastModified by Organization Details LastModified Time None Recorded Payers Encounter Date Sequence Insurance Name Policy Number Policy Antunez Covered Member ID Antunez Member ID Guarantor Name 12/28/2024 1 [facility] - DOS ON OR AFTER 2023 - DUAL ELIGIBLE - SNF OPTIONS AND ONE CARE (MEDICARE REPLACEMENT/ADV ANTAGE - HMO) Norma Tito [id number] Norma Tito Notes Date Note Type Note Provider Name and Address Organization Details Recorded Time 12/28/2024 text/html HPI: 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 No inhaler or neb machine in home at this time. has previous diagnosis of asthma per Daughter not on meds. No fever. Slight SOB with exertion. .................. .................. .................. .................. .................. .................. .................. ............... [facility] Nurse Triage Notes (Christianne Morley - RN): Chief Complaints: Cough PMH: Hypertension, COPD/Asthma, Asthma, Hyperlipidemia, Incontinence, Obesity, Sleep Apnea PMH Reviewed at 12/28/2024 - 10:24 Allergies Reviewed at 12/28/2024 - 10:24 Comments: HPI reviewed Rn Occupational Health Organization Information for [employer] Business Legal Name: [employer]? ? Address: [address] [place] [address], [place] [address], Computer Information Systems Instructor: Gilles Blount MD CLIA No.: [id number] Rn Occupational Health POC Test Results from [facility] Rapid COVID antigen (11:23:49) COVID: - Rapid influenza antigen (11:23:54) Flu: - .................. .................. .................. .................. .................. .................. .................. ............... Rn Occupational Health Note From [employer] [facility]: Dispatched for a 79yo female with a dry cough. Pt states she has had a dry cough [id number]. Pt denies any fevers, h/a, dizziness, cp, sob or nausea. Pt states normal po intake and bathroom use. Pt states she has asthma but does not currently have any medications to treat. Pt states her pcp was sending her albuterol previously but she does not have a home neb. [facility] consulted. Neb of albuterol administered as well as prednisone. Prescription sent to pharmacy. Red flags reviewed with family. Family informed of benefits of humidifier. Pt reports improvement post neb. Pt found seated in chair speaking in full clear sentences with no signs of distress. AO and GCS-15. PERRL. Skin warm/dry. Airway open and lung sounds clear. Notable dry cough. ABD soft nontender. -Edema. Rest of exam unremarkable. .................. .................. .................. .................. .................. .................. .................. ............... [facility] Consulted: Laurie Landin .................. .................. .................. .................. .................. .................. .................. ............... Disposition: Fulfilled Laurie Landin MD [address] [place] [address],[address] [facility], [place], [phone], [employer], [facility] 12/29/2024 07:59:11 OBGyn Episode No OBEpisode recorded.
--- OUTSIDE RECORDS SUMMARY | 2025-01-07 17:24 | XMS_ITS | Encounter Summary ---
Author Organization [facility] Address [address] [facility] 7t [place] [address] Care Team Providers Care Intern Retail Name Role Phone Vivien Morales MD Primary Care Provider [phone]- [phone] Reason for Referral * Imaging (Routine) - Closed Specialty Diagnoses / Procedures Referred By Contac t Referred To Contact Radiology Diagnoses Screening for osteoporosis Procedures XR bone density w SPECT lumbar Vivien Morales MD [address] [place] [address] Phone: tel: fax: Referral ID Status Reason Start Date Expiration Date Visits Re quested Visits Authorized [id number] Closed 08/21/2023 08/20/2024 1 1 Encounter Details Date Type Department Care Team ([facility] st Contact Info) Description 08/21/2023 Orders Only [facility] [address] [place] [address] [phone] Vivien Morales MD [address] [place], [place] [phone] Screening for osteoporosis (Primary Dx) Social History Tobacco Use Types Packs/Day Years Used Date Smoking Tobacco: Never Passive Smoke Exposure: Never Smokeless Tobacco: Never Alcohol Use Standard Drinks/Week Comments Never 0 (1 standard drink = 0.6 oz pur e alcohol) Depression Answer Date Recorded Patient Health Questionnaire-9 Score 11 02/14/2023 Housing Stability Answer Date Recorded What is your housing situation today? I have norbert alvarado 08/21/[address] you li ve. Do you have problems with any of the following? I am not sure 08/21/2023 Food Insecurity Answer Date Recorded Within the past 12 months, y ou worried that your food would run out before you got money to buy more: Never True 08/21/2023 Within the past 12 months,th e food you bought just didn't last and you didn't have enough money to get more: Never True Transportation Answer Date Recorded In the past 12 months, has l ack of transportation kept you from medical appts, meetings, work or from getting things needed for daily living? No 08/21/2023 Utilities Answer Date Recorded In the past 12 months, has t he electric, gas, oil or water company threatened to shut off services in your home? No 08/21/2023 Depression Answer Date Recorded Patient Health Questionnaire-2 [...] 01/29/2025 11:00 AM EDT Office Visit [facility] [address] [place] [phone] Vivien Morales MD [address] [place] [phone] Scheduled Orders Name Type Priority Associated Diagnoses Orde r Schedule XR bone density w SPECT lumbar Imaging Routine Screening for osteoporosis Expected: 08/21/2023, Expires: 08/21/2024 documented as of this encounter Visit Diagnoses Diagnosis Screening for osteoporosis- Primary Special screening for osteoporosis documented in this encounter Additional Health Concerns Assessment Noted Time PHQ-9 Depression Total Score: 11 023 11:17 AM EDT documented as of this encounter Care Teams Intern Retail Relationship Specialty Start Date End Date Vivien Morales MD [address] [place] [phone] PCP - General Family Medicine 06/19/17 Baudilio Childress MD Orthopaedic Surgery 10/20/24 Dr. Hien Garcia Psychiatry 10/20/24 documented as of this encounter
--- OUTSIDE RECORDS SUMMARY | 2025-01-07 17:24 | XMS_ITS | Data Portability ---
Author Organization [employer] [place] [facility] [employer] Address [address] [place] [address] Care Team Providers Care Sushi Chef Name Role Phone [facility] Referring Provider HIM CCA OTHER Assessment Encounter Date Assessment Date Assessment LastModified by Organization Details LastModified Time 03/13/2023 03/13/2023 Ms. Norma Francis is a 77yoF w/ a Pmhx of HTN, frequent falls who is seen today for dizziness. Ms. Farncis and her daughter report that she has [...] she does not look at it. VSS. Barrel Maker on site reports no acute distress, orthostatics [...] Assessment and Plan as documented by the Barrel Maker. We discussed the diagnostic uncertainty of home [...] verbalized understanding of instructions to the medic [email or web address] Not available 07/28/2024 13:55:15 12/28/2024 12/28/2024 I provided real -time medical direction via phone for this encounter, and was available for additional phone based assistance as needed. I have reviewed and agree with the Assessment and Plan as documented by the Barrel Maker. We discussed the diagnostic uncertainty of home [...] verbalized understanding of instruction with the medic Not available 12/28/2024 12:19:13 Plan of Treatment Reminders Order Date Submit Date Provider Last Modified By Organization Details Last Modified Time Details Appointments None recorded. Lab rapid SARS CoV 2 Ag, QL IA, respiratory specimen 2024 025 [email or web address] [facility], [address] [place] [address], [id number], 5 07:58:54 rapid flu (A+B) 2024 025 [email or web address] 0 [facility], [address] [place] [address], [id number], 5 07:58:58 BMP, serum or plasma [email or web address], [address] [place] [address], [id number], 4 13:56:34 Referral None recorded. Procedures None recorded. Surgeries None recorded. Imaging None recorded. Medication Orders albuterol sulfate 2.5 mg/3 mL (0.083 %) solution for nebulizatio n 2024 025 [email or web address] [id number] 0 [facility], [address] [place] [address], [id number], 5 12:15:17 prednisone 20 mg tablet [address] [facility] [address] [facility], [address] [place] [address], [id number], 5 12:15:36 prednisone 20 mg tablet 2024 025 [facility], [address] [place] [address], [id number], 5 17:45:21 albuterol sulfate HFA 90 mcg/actuati on aerosol inhaler 2024 025 [facility], [address] [place] [address], [id number], 5 17:45:23 benzonatate 200 mg capsule 2024 025 [facility], [address] [place] [address], [id number], 5 17:45:22 ketorolac 30 mg/mL injection solution [address] [facility] [address] [facility], [address] [place] [address], [id number], 4 13:56:34 benzonatate 100 mg capsule 2023 024 [facility], [address] [place] [address], [id number], 4 13:47:49 Flonase Allergy Relief 50 mcg/actuati on nasal spray,suspe nsion 2023 024 [facility], [address] [place] [address], [id number], 4 17:13:24 cetirizine 10 mg tablet 2023 024 [facility], [address] [place] [address], [id number], 4 17:13:24 Paxlovid 150 mg-100 mg tablets in a dose pack (Renal Dose) 2023 024 [facility], [address] [place] [address], [id number], 4 17:34:42 Patient TargetsNo targets recorded. Patient InstructionsNo instructions recorded. Reason for Referral None Reported. Results Created Date Observation Date Name Description Value Unit Range Abnormal Flag Note LastModifiedBy Organization Detail LastModifiedTime 12/28/19 25 12/28/2024 rapid flu (A+B) Flu negati ve Not Available [facility] ed [address] [place] [address], [id number], 12/28/2024 12:14:11 12/28/19 25 12/28/2024 rapid SARS CoV 2 Ag, QL IA, respi rator y speci men rapid SARS CoV 2 Ag, QL IA, respiratory specimen negati ve Not Available [facility] ed [address] [place] [address], [id number], 12/28/2024 12:14:08 Result Notes None recorded. Medical Equipment None Reported. Allergies Allergen ID Allergen Name Allergen Category Reaction Reaction Severity Criticality Documentation Date Start Date Code Code System Note Provider Name and Address Organization Details Recorded Time 5516 lisinopri l medicatio n cough Not available Not available 07/28/2024 26302 RxNorm Laurie Landin MD [address] [place] [address],[address], [place], [phone], [place] [facility] 4 13:30:34 Medications Name Sig Start Date Stop [...] Not Available Not Available Not Avai lable Emily COVID-19 Ag Self Test kit Use [...] Updated DateTime 4 100 % 100 % 95119.7 44 g 98 /min 16 /min 97.8 [degF] 150 mm[Hg] 80 mm[Hg] Not Available [facility] [employer] 4 13:31:55 Date Recorded Body temperature Respiratory rate Heart rate Oxygen saturation Oxygen saturation in Arterial blood by Pulse oximetry Systolic blood pressure Diastolic blood pressure Provider Name and Address Organization Details Last Updated DateTime 4 99.1 [degF] 18 /min 70 /min 95 % 95 % 148 mm[Hg] 72 mm[Hg] Not Available [facility] 4 08:24:32 Date Recorded Respiratory rate Oxygen saturation Oxygen saturation in Arterial blood by Pulse oximetry Body height Heart rate Body weight Body temperature Systolic blood pressure Diastolic blood pressure Provider Name and Address Organization Details Last Updated DateTime 4 16 /min 96 % 96 % 139.7 cm 77 /min 21018.7 84 g 98.6 [degF] 158 mm[Hg] 88 mm[Hg] Not Available [facility] 4 13:29:34 Date Recorded Oxygen saturation Oxygen saturation in Arterial blood by Pulse oximetry Heart rate Respiratory rate Body temperature Systolic blood pressure Diastolic blood pressure Provider Name and Address Organization Details Last Updated DateTime 5 97 % 97 % 78 /min 18 /min 99 [degF] 145 mm[Hg] 80 mm[Hg] Not Available [facility] 5 12:12:08 Date Recorded Body temperature Heart rate Body [...] Updated DateTime 3 97.1 [degF] 82 /min 84818.2 96 g 99 % 99 % 14 /min 70183.2 96 g 97.1 [degF] 82 /min 14 /min 99 % 99 % 142 mm[Hg] 77 mm[Hg] 142 mm[Hg] 77 mm[Hg] Not Available [facility] 3 15:25:19 Social History None recorded. Functional Status None recorded. Mental Status None recorded. Family History Nothing Reported. Medical History No medical history recorded. Gynecological HistoryNo gynecological history recorded. Obstetrics History GPAL:G 0 P 0 0 0 0 Past Encounters Encounter ID Performer Location Encounter Start Date Encounter Closed Date Diagnosis/Indication Diagnosis SNOMED-CT Code Diagnosis ICD10 Code Diagnosis Note [id number] Graciela Costa MD [facility] [address] [place] [phone] 03/13/2023 14:42:10 03/14/2023 15:17:29 Dizziness [id number] R42 [id number] PEDRO MIGUEL MD [facility] [address] [place] [phone] 12/19/2023 13:31:53 12/19/2023 18:41:45 Acute COVID-19 2457247600 U07.1 Evaluation in the field was performed by my aircraft maintenance director colleague, as noted above, I provided real-time direction and supervisio n for this visit. The evaluation revealed 78 yo female with hx of HTN, hyperlipid emia, depression , who tested positive for covid yesterday. Daughter reports that a family member tested positive on 12/14 but patient started symptoms including cough and mild SOB on Sunday 12/17. Denies CP, N/V/D, fever, chills. VS stable. Pt afebrile, saturating 100 % on RA, RR 16. Lungs clear Impression :Acute Covid infection Plan:Unfor tunately no blood could be obtained for renal function. Given her age and comorbidit ies including HTN, her eGFR most likely is <60 . Case discussed with daughter who wants Paxlovid and agrees with lower dose. Medication list reviewed. Daughter advised to hold Atorvastat in for 10 days total starting todayWe discussed the benefit of Paxlovid to reduce the risk of hospitaliz ation and , and the potential downsides/ side effects, including dysgeusia, headache, COVID rebound, and the possibilit y of medication interactio ns despite my efforts to review medication s and youth counselor on discontinu ation. We discussed alternativ es, including non-specif ic supportive care and referral for infusion. We felt this plan to be preferable . Primary care, consider__ _ Dispositio n: We discussed the diagnostic uncertaint y of home visits and the risk associated with this. In this case, the patient and I felt this to be an acceptable and reasonable amount of risk given the benefit of avoiding an ED visit. We discussed the need to seek care urgently/e mergently in the setting of any new or worsening serious symptoms, particular ly increase fever that doesn't go down with Tylenol, worsening cough, SOB, CP or any other concerns. [id number] Allyn Lewis MD Main - [address] [phone] 03/13/2024 08:24:31 03/15/2024 11:15:04 Cough [id number] R05.9 I provided real -time medical direction via phone for this encounter, and was available for additional phone based assistance as needed. I have reviewed and agree with the Assessment and Plan as documented by the Barrel Maker. Patient given the opportunit y to ask questions. 78 yo w/ COPD c/o two weeks dry cough, nasal congestion and post nasal drip. No sputum expectorat ion. Has inhalers but some mechanical difficulty utilizing these related to limited mobility at digits. No e/o COPD exacerbati on, covid and flu negative. Suspect seasonal allergies causing increased sx w/ post nasal drip.- flonase, spacer, zyrtec, benzonatat e for symptomati c management [id number] Laurie Landin MD Main - [address] [phone] 07/28/2024 13:29:03 07/30/2024 07:59:28 Pain in left arm [id number] M79.602 Possible vaccine reaction-/ inflammato ry response-a febrile, no redness or warmth to the area, no obvious infection at this time Advised need for close follow-up with PCP as she may need imaging/fu rther workup is beyond the scope of this serviceAdv ised ice / wrapped in a towel alternatin g w/ gentle heat q 3-4H w/a to affected area Patient has no history of CKD, they were told her labs were fine 3 months ago but neither the patient nor her daughter has access to the labs and there are no old labs in her records that I have available. She denies any history of peptic ulcer disease, CKD. She is not anticoagul ated-Labs drawn. Patient has no alarming labs will offer one-time dose of ketorolac/ asked risk benefits including risks of GI bleeding/A KI with repeat doses and she was in agreement to get the medication . May continue her prescribed Tylenol arthritis 650 mg 2 tablets 3 times a day [id number] Laurie Landin MD [facility] - [facility] [address] [place] [phone] 12/28/2024 12:12:06 12/29/2024 09:52:32 Cough 26528835 R05.9 Possible viral URI possible asthma f.u with pcp regarding possible CXR if not improving within several days rest/ push po fluids Asthma 720622619 J45.90 9 Health Concerns Section Related Observation LastModified by Organization Detai ls LastModified Time None Recorded Concern Status LastModified by Organization Details LastModified Time None Recorded Advance Directives Directive None Recorded Payers Encounter Date Sequence Insurance Name Policy Number Policy Antunez Covered Member ID Antunez Member ID Guarantor Name 03/13/2023 1 [facility] [employer] - DOS PRIOR TO 2023 - DUAL ELIGIBLE (MEDICARE REPLACEMENT/ADV ANTAGE - HMO) Norma Francis [id number] Norma Francis 12/19/2023 1 [facility] [employer] - DOS ON OR AFTER 2023 - DUAL ELIGIBLE - JAIL OPTIONS AND ONE CARE (MEDICARE REPLACEMENT/ADV ANTAGE - HMO) Norma Francis [id number] Norma Francis 03/12/2024 1 [facility] - DOS ON OR AFTER 2023 - DUAL ELIGIBLE - JAIL OPTIONS AND ONE CARE (MEDICARE REPLACEMENT/ADV ANTAGE - HMO) Norma Francis [id number] Norma Francis 07/28/2024 1 [facility] - DOS ON OR AFTER 2023 - DUAL ELIGIBLE - JAIL OPTIONS AND ONE CARE (MEDICARE REPLACEMENT/ADV ANTAGE - HMO) Norma Francis [id number] Norma Francis 12/28/2024 1 [facility] - DOS ON OR AFTER 2023 - DUAL ELIGIBLE - JAIL OPTIONS AND ONE CARE (MEDICARE REPLACEMENT/ADV ANTAGE - HMO) Norma Francis [id number] Norma Francis Notes Date Note Type Note Provider Name and Address Organization Details Recorded Time 03/13/2023 text/html HPI: Pt reports dizziness, spinning/tilting of room. ..................... ..................... ..................... ..................... ..................... ..................... ............... CRC Nursing Assessment: Comments: CRC RN DID NOT NEED FURTHER INFO ..................... ..................... ..................... ..................... ..................... ..................... ............... Barrel Maker Note From [place], [place]: Pt complains of increased dizziness when standing [...] - , BGL 119mg/di and pt afebrile. [facility] contacted who prescribed 25mg Meclizine PO and offered the pt 500cc LR IV to assess if it made her feel better. Pt was administered Meclizine as directed but IV access was not able to be successfully established due to pts poor vascular access despite 2 different aircraft maintenance director attempts. [facility] was updated with progress of call and pt was told to hydrate orally with water and to follow up with PCP and Pt was educated on S/SX that would indicate 911/ED visit. ..................... ..................... ..................... ..................... ..................... ..................... ............... Disposition: Fulfilled Graciela Costa MD [address] [place] [address],[address], [place], [address], [employer] 03/13/2023 15:30:22 12/19/2023 text/html CRC Nurse Triage Notes (Katerina Riggins): Reason For Request: Covid positive Chief Complaints: Weakness/Lethargy, Shortness of Breath/Dyspnea, ENT, Cough PMH: Hypertension Comments: Daughter called in requesting visit because member tested positive for covid yesterday. Looking for respiratory assessment and to determine if she is a good candidate for paxlovid. Ramiroies fever but does have a cough and some SOB. Symptoms started yesterday after being exposed to a +family member on Saturday. Allergic to CHUCK inhibitors and member is on lipitor. Med list available in the house. Lynette Riggins RN ..................... ..................... ..................... ..................... ..................... ..................... ............... Barrel Maker Note From Perry Hardin: Pt co cough headache sore throat nasal congestion since Saturday. Covid positive diagnosis yesterday. Daughter wanted pt evaluated. Pt denies cp sob fever nausea vomiting or diarrhea. Baseline vitals assessed. POc bloodwork attempted but unsuccessful due to poor vasculature. Lungs clear , afebrile. Pt resting comfortably watching tv. [facility] contacted and 1/2 dose paxlovid RX. Pt and daughter educated on signs indicating the ER. ..................... ..................... ..................... ..................... ..................... ..................... ............... Disposition: Jean MIGUEL MD [address] [facility],[address], [place], [address], [employer] [facility] [employer] 12/19/2023 14:30:16 03/12/2024 text/html HPI: Patient with greater than one week of cough. Cough is dry with severe spasms. No phlegm no fever. ..................... ..................... ..................... ..................... ..................... ..................... ............... CRC Nurse Triage Notes (Christianne Morley): Comments: CRC RN DID NOT FURTHER INFO Barrel Maker POC Test Results from Hever Pryor - ALS Rapid influenza antigen (1) [15:44] Flu: - Rapid strep test (1) [15:44] Strep: - ..................... ..................... ..................... ..................... ..................... ..................... ............... Barrel Maker Note From Hever Pryor: pt complains of [...] neuro exam. Covid Flu exam negativeconsult with [facility] pt is prescribed albuterol, spacer for inhaler,zyrtec [...] ..................... ..................... ..................... ..................... ............... Disposition: Fulfilled Allyn Lewis MD [address] [place] [address],[address], [place], [address], [employer] [facility] [employer] 03/13/2024 09:55:36 07/28/2024 text/html HPI: Call returned [...] Pt daughter offered WIC. Declines but prefers [employer] eval. [employer] referral submitted. Address and phone number verified. ..................... ..................... ..................... ..................... ..................... ..................... ............... CRC Nurse Triage Notes (Maritza Melgar): Chief Complaints: Pain PMH: COPD/Asthma, Hypertension, COPD/Asthma Other Allergies: chuck inhibitors Comments: HPI reviewed. No further information needed to process visit. Barrel Maker Organization Information for Matthew Barnes Legal Name: [employer].? ? Address: [address] [place] [id number], Profile Trimmer: Gilles Blount MD CLIA No.: [id number] Barrel Maker POC Test Results from Matthew Barnes iSTAT Chem8+ (13:44:13) Na: 142 mEq/L K: 3.8 mEq/L Cl: 107 mEq/L iCa: 1.23 mmol/L TCO2: 25 mmol/L Glu: 93 mg/dL BUN: 20 mg/dL Crea: 0.9 mg/dL Hct: 36 % Hb: 12.2 g/dL A ..................... ..................... ..................... ..................... ..................... ..................... ............... Barrel Maker Note From Matthew Barnes: Dispatched to the [...] from the elbow down and has equal rib stiffener and heel dipper strengths. 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 No inhaler or neb machine in home at this time. has previous diagnosis of asthma per Daughter not on meds. No fever. Slight SOB with exertion. ..................... ..................... ..................... ..................... ..................... ..................... ............... CRC Nurse Triage Notes (Christianne Morley - RN): Chief Complaints: Cough PMH: Hypertension, COPD/Asthma, Asthma, Hyperlipidemia, Incontinence, Obesity, Sleep Apnea PMH Reviewed at 12/28/202424 Allergies Reviewed at 12/28/2024:24 Comments: HPI reviewed Barrel Maker Organization Information for Sabine Ugo Turner [employer] Legal Name: [employer]? ? Address: [address] [place] [address], Profile Trimmer: Gilles Blount MD [place] No.: [id number] Barrel Maker POC Test Results from Regalado, Ugo Yue [employer]AN[employer] Rapid COVID antigen (11:23:49) COVID: - Rapid influenza antigen (11:23:54) Flu: - ..................... ..................... ..................... ..................... ..................... ..................... ............... Barrel Maker Note From Ugo Regalado: Dispatched for a 79yo female with a dry cough. Pt states she has had a dry cough g83rmum. Pt denies any fevers, h/a, dizziness, cp, sob or nausea. Pt states normal po intake and bathroom use. Pt states she has asthma but does not currently have any medications to treat. Pt states her pcp was sending her albuterol previously but she does not have a home neb. [facility] consulted. Neb of albuterol administered as well [...] soft nontender. -Edema. Rest of exam unremarkable. ..................... ..................... ..................... ..................... ..................... ..................... ............... [facility] Consulted: Laurie Landin ..................... ..................... ..................... ..................... ..................... ..................... ............... Disposition: Fulfilled Laurie Landin MD [address] [facility],[address], [place], [address], [facility] 12/29/2024 07:59:11 OBGyn Episode No OBEpisode recorded.
--- OUTSIDE RECORDS SUMMARY | 2025-01-07 17:24 | XMS_ITS | Encounter Summary ---
Author Organization [employer] [facility] Address [address] [place] [address] Care Team Providers Care Transport Analyst Name Role Phone Vivien Morales MD Primary Care Provider [phone] Encounter Details Date Type Department Care Team (Late st Contact Info) Description 04/15/2023 Abstract [facility] [address] [place] [phone] Vivien Morales MD [address] [place] [address] [phone] Social History Tobacco Use Types Packs/Day Years [...] Description 01/29/2025 11:00 AM EDT Office Visit [facility] [address] [place] [address] [phone] Vivien Morales MD [address] [place] [address] [phone] documented as of this encounter Visit Diagnoses Not on filedocumented in this encounter Additional Health Concerns Assessment Noted Time PHQ-9 Depression Total Score: 11 023 11:17 AM EDT documented as of this encounter Care Teams Transport Analyst Relationship Specialty Start Date End Date Vivien Morales MD [address] [place] [address] PCP - General Family Medicine 06/19/17 Baudilio Childress MD Orthopaedic Surgery 10/20/24 Dr. Hien Garcia Psychiatry 10/20/24 documented as of this encounter
--- OUTSIDE RECORDS SUMMARY | 2025-01-07 17:24 | XMS_ITS | Encounter Summary ---
Author Organization [employer] Address [address] [facility] [address] [place] [address] Care Team Providers Care Ged Tutor Name Role Phone Vivien Morales MD Primary Care Provider [phone]- [phone] Reason for Visit * Reason Onset Date Comments Nurse Triage 12/28/2024 Encounter Details Date Type Department Care Team ([facility] st Contact Info) Description 12/28/2024 Telephone [facility] [address] [place] [address] Vivien Morales MD [address] [place] [address] Nurse Triage Social History Tobacco Use Types Packs/Day Years Used Date Smoking Tobacco: Never Passive Smoke Exposure: Never Smokeless Tobacco: Never Alcohol Use Standard Drinks/Week Comments Never 0 (1 standard drink = 0.6 oz pur e alcohol) Depression Answer Date Recorded Patient Health Questionnaire-9 Score 0 01/29/2024 Patient Health Questionnaire-9 Score 0 01/29/2024 Last PHQ-9: Questionnaire Data Not on file 0 01/29/2024 Housing Stability Answer Date Recorded What is your housing situation today? I have norbert alvarado 01/21/[address] you li ve. Do you have problems with any of the following? None of the above 01/21/2024 Food Insecurity Answer Date Recorded Within the [...] from getting things needed for daily living? Yes, it has kept me from medical appointments or getting medications. 01/21/2024 Utilities Answer Date Recorded In the past 12 months, has t he electric, gas, oil or water company threatened to shut off services in your home? No 08/21/2023 Depression Answer Date Recorded Patient Health Questionnaire-2 Score 0 01/29/2024 Comments Unknown Sex and Gender Information Value Date Recorded Sex Assigned at Female 09/03/2022 10:18 AM EDT Legal Sex Female 10:18 AM EDT Gender Identity Female 09/03/2022 10:18 AM EDT Sexual Orientation Straight 09/03/2022 10 :18 AM EDT documented as of this encounter Miscellaneous Notes * Telephone Encounter - Niya Henderson LPN - 12/28/2024 9:56 AM EST Triage call returned with BLS # [id number] [place]. Daughter Nishant does not need dishwasher busser and called directly. Reports Mom with dry cough that is not improved with OTC medication for one week. Not sleeping. NO fever no ST or ear pain. Has slight SOB noted by daughter with exertion. No chest pain attime of call but told daughter yesterday her chest felt funny. No humidifier in home and no longer has nebulizer machine. No PCP or Team appts today. Daughter request [facility] home evaluation. Dispositionreviewed and patient in agreement with plan. ASK/[facility] home referral placed and address and phone verified. Protocol Used: Cough (Adult) Protocol-Based Disposition: Go to Office or Video Visit Now Positive Triage Question: * Mild difficulty breathing (e.g., minimal/no SOB at rest, SOB with walking, pulse < 100) and still present when not coughing * All higher-acuity triage questions were negative Care Advice Discussed: * Cough Medicines * Cough Syrup With Dextromethorphan * Prevent Dehydration * Humidifier * Reasons To Call Back - Difficulty breathing - You become worse * Telephone Encounter - Ayala Mathew - 12/28/2024 9:47 AM EST Symptoms: Cough, Chest Congestion Outcome: Schedule an urgent appointment (within 1 hour) or talk to a nurse or provider soon Reason: Wheezing (high-pitched whistling sound) The caller accepted this outcome. [phone] *denied triage documented in this encounter Plan of Treatment Upcoming Encounters Date Type Department Care Team (Late st Contact Info) Description 01/29/2025 11:00 AM EDT Office Visit [facility] [address] [place], [place] [id number] Vivien Morales MD [address] [place], [place] [phone] documented as of this encounter Goals Goal Patient Goal Type Associated Problems Recent Progress Patient-Stated? Author Blood Pressure < 140/90 Blood Pressure 122/70(2024 5:52 PM EST) No Michelle Canela, Kevin Note: Start monitoring blood pressures at home. Call your doctor for any high readings or concerning symptoms Immunizations General No Michelle Canela, Kevin Note: Come to the pharmacy on 02/26 for Shingrix and PCV20 vaccines documented as of this encounter Visit Diagnoses Not on filedocumented in this encounter Additional Health Concerns Assessment Noted Time PHQ-9 Depression Total Score: 0 01/29/20 24 10:48 AM EDT documented as of this encounter Care Teams Ged Tutor Relationship Specialty Start Date End Date Vivien Morales MD [address] [place] [address] PCP - General Family Medicine 06/19/17 Baudilio Childress MD Orthopaedic Surgery 10/20/24 Dr. Hien Garcia Psychiatry 10/20/24 documented as of this encounter
--- OUTSIDE RECORDS SUMMARY | 2025-01-07 17:24 | XMS_ITS | Encounter Summary ---
Author Organization [employer] Address [address] [facility] [address] [place] [address] Care Team Providers Care Home Paraprofessional Name Role Phone Vivien Morales MD Primary Care Provider +1- [phone] Reason for Visit * Reason Comments Cough Encounter Details Date Type Department Care Team (Latest Contact Info) Description 01/05/2025 6:00 PM EST Office Visit [facility] [address] [place] [address] Vivien Morales MD [address] [place] [address] Recurrent dry cough (Primary Dx); Morbid obesity (CMS/HCC); Current mild episode of major depressive disorder without prior episode (CMS/HCC); Incontinence in female; Low serum vitamin B12; Anemia, unspecified type; Hyperlipidemia, unspecified hyperlipidemia type; Hypertension, unspecified type Social History Tobacco Use Types Packs/Day Years [...] AM EDT documented as of this encounter Last Filed Vital Signs Vital Sign Reading Time Taken Comments Blood Pressure 122/70 01/05/2025 5:52 PM EST Pulse 87 01/05/2025 5:52 PM EST Temperature 37.1 ??C (98.7 ??F) 01/05/2025 5:52 PM ES T Respiratory Rate 19 01/05/2025 5:52 PM EST Oxygen Saturation 97% 01/05/2025 5:52 PM EST Inhaled Oxygen Concentration - - Weight 79.6 kg (175 lb 8 oz) 01/05/2025 5:52 PM EST Height 139.7 cm (4' 7 ) 01/05/2025 5:52 PM EST Body Mass Index 40.79 01/05/2025 5:52 PM EST documented in this encounter Progress Notes * Enedelia Ireland - 01/05/2025 6:00 PM EST Subjective History was provided by the patient. Norma Francis is a 79 y.o. female with past medical history of Asthma, hypertension, NAKUL, GERD, and Depression who presents for evaluation of symptoms of a URI, follow up on a URI. Symptoms includecough and no sputum . Onset of symptoms was 3 weeks ago, unchanged since that time. Associated negative symptoms include fever, shortness of breath, nausea, and vomiting. Evaluation to date: Seen on 12/29 at , Treated with albuterol and prednisone. Objective Vitals: 01/05/25 1752 BP: 122/70 BP Location: Right arm Patient Position: Sitting BP Cuff Size: Adult Pulse: 87 Resp: 19 Temp: 98.7 ??F (37.1 ??C) TempSrc: Oral SpO2: 97% Weight: 175 lb 8 oz (79.6 kg) Height: 4' 7 (1.397 m) Physical Exam Constitutional: Appearance: Normal appearance. Cardiovascular: Rate and Rhythm: Normal rate. Pulmonary: Effort: Pulmonary effort is normal. Breath sounds: Normal breath sounds. No wheezing, rhonchi or rales. Comments: Intermittent dry cough Musculoskeletal: Right lower leg: No edema. Left lower leg: No edema. Neurological: General: No focal deficit present. Mental Status: She is alert. Psychiatric: Behavior: Behavior normal. No visits with results within 2 Day(s) from this visit. Latest known visit with results is: Office Visit on 10/21/2024 Component Date Value Ref Range Status Hemoglobin A1c 10/21/2024 5.5 <6.0 % Final Hemoglobin A1C Reference Range Adults: 4.8 - 6.0 % Non diabetic: < 6.0 % Goal: < 7.0 %Additional Action Suggested: > 8.0 %Note: Hemoglobin A1c results are invalid for patients with abnormalamounts of HbF. Blood transfusions may impact the HbA1c concentration in the patient sample. Estimated Average Glucose 10/21/2024 111 mg/dL Final eAG = Estimated average glucose which is %A1C expressed asaverage glucose, using the formula of the [id number] Glucose study (ADAG), Diabetes Care, Vol.31,#8,2007 Bilirubin, Total 10/21/2024 0.6 0.0 - 1.0 mg/dL Final Bilirubin, Direct 10/21/2024 0.3 0.0 - 0.5 mg/dL Final Aspartate Amino Transferase 10/21/2024 24 5 - 31 U/L Final Alanine Aminotransferase 10/21/2024 27 0 - 31 U/L Final Total Protein 10/21/2024 6.7 6.5 - 8.0 g/dL Final Albumin Level 10/21/2024 3.6 3.5 - 5.0 g/dL Final Alkaline Phosphatase 10/21/2024 159 (H) 39 - 117 U/L Final Magnesium 10/21/2024 2.2 1.6 - 2.6 mg/dL Final Sodium 10/21/2024 142 135 - 145 mmol/L Final Potassium 10/21/2024 3.6 3.3 - 5.1 mmol/L Final Chloride 10/21/2024 107 96 - 108 mmol/L Final Carbon Dioxide 10/21/2024 27 22 - 29 mmol/L Final Anion Gap 10/21/2024 12 12 - 20 Final Urea Nitrogen (BUN) 10/21/2024 17 (H) 9 - 16 mg/dL Final Creatinine, Serum 10/21/2024 0.75 0.5 - 1.4 mg/dL Final Estimated Glomerular Filt Rate 10/21/2024 >60 Final Chronic Kidney Disease: Estimated GFR < 60 mL/min/1.72o3Pqytrs Kidney Disease: Estimated GFR < 15 mL/min/1.73m2 Glucose 10/21/2024 96 60 - 115 mg/dL Final Calcium 10/21/2024 9.0 8.4 - 10.2 mg/dL Final TSH reflex Free T4 10/21/2024 2.99 0.32 - 4.0 uIU/mL Final White Blood Count 10/21/2024 11.5 (H) 4.8 - 10.8 X10*3/uL Final Red Blood Count 10/21/2024 3.85 (L) 4.20 - 5.50 X10*6/uL Final Hemoglobin 10/21/2024 11.8 (L) 12.0 - 16.0 g/dl Final Hematocrit 10/21/2024 36.3 (L) 37.0 - 47.0 % Final Mean Corpuscular Volume 10/21/2024 94.3 80.0 - 98.0 fL Final Mean Corpuscular Hemoglobin 10/21/2024 30.6 27.0 - 33.0 pg Final Mean Corpuscular HGB Conc 10/21/2024 32.5 31.0 - 35.0 g/dl Final Red Cell Distribution Width 10/21/2024 13.3 11.0 - 16.0 % Final Platelet Count 10/21/2024 436 (H) 160 - 400 X10*3/uL Final Mean Platelet Volume 10/21/2024 9.1 (L) 9.4 - 12.3 fL Final Neutrophils Percent Auto 10/21/2024 76.7 (H) 45 - 73 % Final Imm Gran Pct Auto 10/21/2024 0.6 (H) 0.0 - 0.4 % Final Lymphocytes Percent Auto 10/21/2024 12.8 (L) 20 - 40 % Final Monocytes Percent Auto 10/21/2024 7.4 2 - 11 % Final Eosinophils Percent Auto 10/21/2024 1.7 0 - 4 % Final Basophils Percent Auto 10/21/2024 0.8 0 - 2 % Final NRBC Pct Auto 10/21/2024 0.0 0.0 - 0.2 /100WBC Final Neutrophils Absolute Auto 10/21/2024 8.8 (H) 2.0 - 8.3 x10*3/uL Final Imm Gran Abs Auto 10/21/2024 0.07 (H) 0.00 - 0.03 X10*3/uL Final Lymphocytes Absolute Auto 10/21/2024 1.5 1.2 - 4.9 X10*3/uL Final Monocytes Absolute Auto 10/21/2024 0.9 0.1 - 1.2 X10*3/uL Final Eosinophils Absolute Auto 10/21/2024 0.2 0.0 - 0.4 X10*3/uL Final Basophils Absolute Auto 10/21/2024 0.1 0.0 - 0.2 X10*3/uL Final NRBC Abs Auto 10/21/2024 0.000 0.0 - 0.012 X10*3/uL Final Vitamin D 25-OH Total 10/21/2024 40.7 >30 ng/mL Final Health Based Reference Values*< 20 ng/mL Xozbfatit09-24 ng/mL Insufficient> 30 ng/mL Sufficient*Ayaz DALTON. N Engl J Med. 2007;357:266-280Care must be taken in interpreting Vitamin D results fromdifferent laboratories and methodologies. Published datademonstrated that results from patients undergoinghemodialysis may show a negative bias when tested withvarious automated 25-OH vitamin D assays when compared toLC-MS/MS.When testing samples from patients whose predominant form ofVitamin D is Vitamin D2, such as patients receiving VitaminD2 supplementation, results that are subtherapeutic shouldbe confirmed with another method such as LC-MS/MS. T Spot TB 10/21/2024 Negative Negative Final A negative test result does not exclude the possibilityof exposure to or infection with Mycobacteriumtuberculosis (M. tuberculosis). Patients with recentexposure to TB infected individuals exhibitinganegative T-SPOT.TB result should be considered forretesting within 6 weeks or if other relevant cli nicalsymptoms indicate. Results from T-SPOT.TB testing mustbe used in conjunction with each individual'sepidemiological history, current medical status,and results of other diagnostic evaluations.TheT-SPOT.TB test is qualitative and results arereported as positive, borderline, or negative, giventhat the test controls perform as expected. In linewith the Centers for Disease Control and Prevention's2010 recommendation to report quantitative measurementsalongside the qualitative result, the laboratoryprovides spot counts for informational purposes only.The T-SPOT.TB test should not be interpreted as aquantitative test. TS PANEL A 10/21/2024 0 Final TS PANEL B 10/21/2024 0 Final Negative Control 10/21/2024 Passed Final Positive Control 10/21/2024 Passed Final For additional information, please refer tohttp://education.PubMatic/faq/DVW619(This link is being provided for informational/educational purposes only.)THIS TEST WAS PERFORMED AT:[employer]px/[id number] [place] [address]XYCUSNZVON ANAND MD,PHD Vitamin B12 10/21/2024 240 200 - 900 pg/mL Final NORMAL 200-900 PG/ML INDETERMINATE 160-199 PG/ML DEFICIENT < 160 PG/ML Ferritin 10/21/2024 323 (H) 10 - 250 ng/mL Final Iron 10/21/2024 78 30 - 160 mcg/dL Final Total Iron Binding Capacity 10/21/2024 273 228 - 428 mcg/dL Final Percent Iron Saturation 10/21/2024 29 15 - 50 % Final Unsaturated Iron Binding 10/21/2024 195 ug/dL Final Problem List Items Addressed This Visit Recurrent dry cough - Primary Recurrent dry cough x3 weeks. -ordered CXR -prescribed azithromycin (Zithromax) 250 MG, Take 2 tablets (500 mg) by mouth Once per day for 1 day, THEN 1 tablet (250 mg) Once per day for 4 days Relevant Medications azithromycin (Zithromax) 250 MG tablet Other Relevant Orders XR Chest 2 Views Morbid obesity (CMS/HCC) Lab Results Component Value Date HGBA1C 5.5 10/21/2024 HGBA1C 5.1 03/15/2023 HGBA1C 5.2 03/09/2022 HGBA1C 5.3 03/09/2021 GLUCOSE 96 10/21/2024 Current mild episode of major depressive disorder without prior episode ([facility]) Pt is followed by psychiatrist, Dr. Garcia and is on multiple psychiatric med, topiramate 25 mg two tabs BID, rozerem 8 mg at night, prazosin 5 mg at night, lamotrigine 100 mg at night, bupropion xl 300 daily. Followed by psychiatry and counseling. - Prescribed lamoTRIgine (LaMICtal) 200 MG tablet 10/21/24 - Prescribed DULoxetine (Cymbalta) [address] capsule 10/21/24 - Prescribed buPROPion XL (Wellbutrin XL) 150 MG 24 hr tablet 10/21/24 Incontinence in female -Pt uses pull ups, wipes, and liners. -pt uses XL pull ups -refilled prescription for bed pads 01/05/25 Low serum vitamin B12 Lab Results Component Value Date VITB12 240 10/21/2024 Relevant Orders CBC auto differential Vitamin B12 Anemia Lab Results Component Value Date FERRITIN 323 (H) 10/21/2024 HGB 11.8 (L) 10/21/2024 HGB 12.1 03/15/2023 HGB 13.1 02/14/2023 HGB 13.4 01/28/2023 HGB 12.1 03/09/2022 HEMATOCRIT 36.5 03/15/2023 HEMATOCRIT 36.0 03/09/2022 Relevant Orders TSH with Reflex to Free T4 Hyperlipidemia Lab Results Component Value Date CHOLESTEROL 139 03/15/2023 LDLCHOL 65 03/15/2023 TRIG 79 03/15/2023 HDLCHOL 58 03/15/2023 CHOLHDLRAT 2.4 03/15/2023 -continue lifestyle modifications -continue atorvastatin 10mg daily -encourage lab draw Relevant Orders Lipid Panel, Standard Hypertension Well controlled. -continue chlorthalidone 25 mg daily -continue Losartan 50 mg daily -Pt had cough with jude in past -electrolytes were normal 03/23/21 -furosemide d/c due to BP at goal. -gave BP monitor to monitor at home 07/22/24. Relevant Orders Hepatic Function Panel Basic Metabolic Panel -No evidence of acute disease process. Suspect recurrent cough. Symptoms mild. -Will treat with abx and ordered XR. -ER precautions discussed. -Seek medical attention for worsening symptoms. I, Enedelia Ireland, am serving as a scribe to document services personally performed by Dr. Ferreira, based on the patient's response to questions by provider and providers statements to me. documented in this encounter Miscellaneous Notes * Assessment & Plan Note - Enedelia Ireland - 01/05/2025 6:10 PM ESTAssociated Problem(s): Hypertension Well controlled. -continue chlorthalidone 25 mg daily -continue Losartan 50 mg daily -Pt had cough with jude in past -electrolytes were normal 03/23/21 -furosemide d/c due to BP at goal. -gave BP monitor to monitor at home 07/22/24. * Assessment & Plan Note - Enedelia Ireland - 01/05/2025 6:09 PM ESTAssociated Problem(s): Hyperlipidemia Lab Results Component Value Date CHOLESTEROL 139 03/15/2023 LDLCHOL 65 03/15/2023 TRIG 79 03/15/2023 HDLCHOL 58 03/15/2023 CHOLHDLRAT 2.4 03/15/2023 -continue lifestyle modifications -continue atorvastatin 10mg daily -encourage lab draw * Assessment & Plan Note - Enedelia Ireland - 01/05/2025 6:09 PM ESTAssociated Problem(s): Low serum vitamin B12 Lab Results Component Value Date VITB12 240 10/21/2024 * Assessment & Plan Note - Enedelia Ireland - 01/05/2025 6:08 PM ESTAssociated Problem(s): Anemia Lab Results Component Value Date FERRITIN 323 (H) 10/21/2024 HGB 11.8 (L) 10/21/2024 HGB 12.1 03/15/2023 HGB 13.1 02/14/2023 HGB 13.4 01/28/2023 HGB 12.1 03/09/2022 HEMATOCRIT 36.5 03/15/2023 HEMATOCRIT 36.0 03/09/2022 * Assessment & Plan Note - Enedelia Ireland - 01/05/2025 6:06 PM ESTAssociated Problem(s): Morbid obesity (CMS/HCC) Lab Results Component Value Date HGBA1C 5.5 10/21/2024 HGBA1C 5.1 03/15/2023 HGBA1C 5.2 03/09/2022 HGBA1C 5.3 03/09/2021 GLUCOSE 96 10/21/2024 * Assessment & Plan Note - Enedelia Ireland - 01/05/2025 6:05 PM ESTAssociated Problem(s): Current mild episode of major depressive disorder without prior episode (CMS/HCC) Pt is followed by psychiatrist, Dr. Garcia and is on multiple psychiatric med, topiramate 25 mg two tabs BID, rozerem 8 mg at night, prazosin 5 mg at night, lamotrigine 100 mg at night, bupropion xl 300 daily. Followed by psychiatry and counseling. - Prescribed lamoTRIgine (LaMICtal) 200 MG tablet 10/21/24 - Prescribed DULoxetine (Cymbalta) [address] capsule 10/21/24 - Prescribed buPROPion XL (Wellbutrin XL) 150 MG 24 hr tablet 10/21/24 * Assessment & Plan Note - Enedelia Ireland - 01/05/2025 6:05 PM ESTAssociated Problem(s): Incontinence in female -Pt uses pull ups, wipes, and liners. -pt uses XL pull ups -refilled prescription for bed pads 01/05/25 * Assessment & Plan Note - Enedelia Ireland - 01/05/2025 6:05 PM ESTAssociated Problem(s): Recurrent dry cough Recurrent dry cough x3 weeks. -ordered CXR -prescribed azithromycin (Zithromax) 250 MG, Take 2 tablets (500 mg) by mouth Once per day for 1 day, THEN 1 tablet (250 mg) Once per day for 4 days documented in this encounter Plan of Treatment Upcoming Encounters Date Type Department Care Team (Late st Contact Info) Description 01/29/2025 11:00 AM EDT Office Visit [facility] [address] [place] [id number] Vivien Morales MD [address] [place] [address] Scheduled Orders Name Type Priority Associated Diagnoses Orde r Schedule Hepatic Function Panel Lab Routine Hypertension, unspecified type Expected: 01/05/2025, Expires: 01/05/2026 Lipid Panel, Standard Lab Routine Hyperlipidemia, unspecified hyperlipidemia type Expected: 01/05/2025, Expires: 01/05/2026 Basic Metabolic Panel Lab Routine Hypertension, unspecified type Expected: 01/05/2025, Expires: 01/05/2026 TSH with Reflex to Free T4 Lab Routine Anemia, unspecified type Expected: 01/05/2025 (Approximate), Expires: 01/05/2026 CBC auto differential Lab Routine Low serum vitamin B12 Expected: 01/05/2025, Expires: 01/05/2026 Vitamin B12 Lab Routine Low serum vitamin B12 Expected: 01/05/2025, Expires: 01/05/2026 documented as of this encounter Goals Goal Patient Goal Type Associated Problems Recent Progress Patient-Stated? Author Blood Pressure < 140/90 Blood Pressure 122/70(2024 5:52 PM EST) No Michelle Canela PharmD Note: Start monitoring blood pressures at home. Call your doctor for any high readings or concerning symptoms Immunizations General No Michelle Canela PharmD Note: Come to the pharmacy on 02/26 for Shingrix and PCV20 vaccines documented as of this encounter Procedures Procedure Name Priority Date/Time Associated Diagnosis Comments XR CHEST 2 VIEWS Routine 01/07/2025 2:10 PM EST Recurrent dry cough documented in this encounter Results * XR Chest 2 Views (01/07/2025 2:10 PM EST) Anatomical Region Laterality Modality Chest Radiographic Allison ging 01/07/2025 2:10 PM EST Narrative 01/07/2025 2:51 PM EST ?[facility] ?[address] ?[place] [address] ?XRay Report ? Signed ? Patient: Norma Francis ?MR#: [id number] ?? 181 ? : 1945 ?Acct:[id number] ? Age/Sex: 79 / F ?ADM Date: 01/07/25 ? Loc: HO.HHCX ? Attending Dr: Vivien Morales MD ? Ordering Physician: Vivien Morales MD ?? Date of Service: 01/07/25 ?? Procedure(s): XR chest 2V ?? Accession Number(s): [id number] ? cc: Vivien Morales MD ? EXAMINATION: ?? XR CHEST ? CLINICAL INFORMATION: ?? cough for 3 weeks ? COMPARISON: ?? Chest x-ray 03/15/2023 ? TECHNIQUE: ?? 2 views of the chest were obtained. ? FINDINGS: ?? No significant abnormality is noted involving the heart, lungs, ?? mediastinum, bony thorax or soft tissues. ? XR/XR chest 2V ?? IMPRESSION: ?? Unremarkable chest examination. ? Electronically signed by: ??Sav Juan MD ??01/07/2025 02:48 PM EST RP ? Dictated By: ?Sav Juan MD ? Signed By: ?<Electronically signed by Sav Juan MD in OV> ?01/07/25 1448 ? DD/ 1410 ? TD/TT: 01/07/25 1420 ? [employer]sembl[employer] 1[employer] Shift: GRIS ? Procedure Note Donmaddie, Carmela - 01/07/2025 [facility] [address] [place] [address] XRay Report Signed Patient: Norma FrancisMR#: [id number] : 8Acct:[id number] Age/Sex: 79 / FADM Date: 01/07/25 Loc: HO.HHCX Attending Dr: Vivien Morales MD Ordering Physician: Vivien Morales MD Date of Service: 01/07/25 Procedure(s): XR chest 2V Accession Number(s): [id number] cc: Vivien Morales MD EXAMINATION: XR CHEST CLINICAL INFORMATION: cough for 3 weeks COMPARISON: Chest x-ray 03/15/2023 TECHNIQUE: 2 views of the chest were obtained. FINDINGS: No significant abnormality is noted involving the heart, lungs, mediastinum, bony thorax or soft tissues. XR/XR chest 2V IMPRESSION: Unremarkable chest examination. Electronically signed by: Sav Juan MD 01/07/2025 02:48 PM [facility] Dictated By: Sav Juan MD Signed By: <Electronically signed by Sav Juan MD in OV> 01/07/25 1448 DD/ 1410 TD/TT: 01/07/25 1420 [employer]sembler 1[employer] Shift: MSM Vivien Morales MD IMG XR PROCEDURES Final Re sult documented in this encounter Visit Diagnoses Diagnosis Recurrent dry cough- Primary Cough Morbid obesity (CMS/HCC) Morbid obesity Current mild episode of major depressive disorder without prior episode (CMS/HCC) Incontinence in female Low serum vitamin B12 Anemia, unspecified type Hyperlipidemia, unspecified hyperlipidemia type Hypertension, unspecified type documented in this encounter Additional Health Concerns Assessment Noted Time PHQ-9 Depression Total Score: 0 01/29/20 24 10:48 AM EDT documented as of this encounter Care Teams Home Paraprofessional Relationship Specialty Start Date End Date Vivien Morales MD [address] [place] [address] PCP - General Family Medicine 06/19/17 Baudilio Childress MD Orthopaedic Surgery 10/20/24 Dr. Hien Garcia Psychiatry 10/20/24 documented as of this encounter
--- OUTSIDE RECORDS SUMMARY | 2025-01-07 17:24 | XMS_ITS | Encounter Summary ---
Author Organization [facility] [employer] Address [address] [place] [address] Care Team Providers Care Flux Tube Attendant Name Role Phone Vivien Morales MD Primary Care Provider [phone]- [phone] Reason for Visit * Reason Onset Date Comments Request For Order(s) 08/15/2023 Encounter Details Date Type Department Care Team ([facility] Contact Info) Description 08/15/2023 Telephone [facility] [address] [place] [address] Vivien Morales MD [address] [place] [address] Request For Order(s) Social History Tobacco Use Types Packs/Day Years Used Date Smoking Tobacco: Never Passive Smoke Exposure: Never Smokeless Tobacco: Never Alcohol Use Standard Drinks/Week Comments Never 0 (1 standard drink = 0.6 oz pur e alcohol) Depression Answer Date Recorded Patient Health Questionnaire-9 Score 11 02/14/2023 Housing Stability Answer Date Recorded What is your housing situation today? I have norbert alvarado 08/13/[address] you li ve. Do you have problems with any of the following? I am not sure 08/13/2023 Food Insecurity Answer Date Recorded Within the past 12 months, y ou worried that your food would run out before you got money to buy more: Never True 08/13/2023 Within the past 12 months,th e food you bought just didn't last and you didn't have enough money to get more: Never True 08/2023 Transportation Answer Date Recorded In the past 12 months, has l ack of transportation kept you from medical appts, meetings, work or from getting things needed for daily living? No 08/13/2023 Utilities Answer Date Recorded In the past 12 months, has t he electric, gas, oil or water company threatened to shut off services in your home? No 08/13/2023 Depression Answer Date Recorded Patient Health Questionnaire-2 Score 4 02/14/2023 Comments Unknown Sex and Gender Information Value Date Recorded Sex Assigned at Female 09/03/2022 10:18 AM EDT Legal Sex Female 10:18 AM EDT Gender Identity Female 09/03/2022 10:18 AM EDT Sexual Orientation Straight 09/03/2022 10 :18 AM EDT documented as of this encounter Miscellaneous Notes * Telephone Encounter - Yolanda Wynne - 08/15/2023 4:16 PM EDT Tc from [facility] requesting order for Bone Density Scan to be fax to [phone] documented in this encounter Plan of Treatment Upcoming Encounters Date Type Department Care Team (Late st Contact Info) Description 01/29/2025 11:00 AM EDT Office Visit [facility] [address] [place] [id number] Vivien Morales MD [address] [place] [address] documented as of this encounter Visit Diagnoses Not on filedocumented in this encounter Additional Health Concerns Assessment Noted Time PHQ-9 Depression Total Score: 11 023 11:17 AM EDT documented as of this encounter Care Teams Flux Tube Attendant Relationship Specialty Start Date End Date Vivien Morales MD [address] [place] [id number] PCP - General Family Medicine 06/19/17 aBudilio Childress MD Orthopaedic Surgery 10/20/24 Dr. Hien Garcia Psychiatry 10/20/24 documented as of this encounter
--- OUTSIDE RECORDS SUMMARY | 2025-01-07 17:24 | XMS_ITS | Encounter Summary ---
Author Organization [employer] Address [address] [facility] [address] [place] [address] Care Team Providers Care Canine Service Teacher Name Role Phone Vivien Morales MD Primary Care Provider [phone]- [phone] Reason for Visit * Reason Onset Date Comments [facility] 01/05/2025 B rief, pull-on prevail, attend wipes Encounter Details Date Type Department Care Team (Late st Contact Info) Description 01/05/2025 Telephone [facility] [address] [place] [address] Vivien Morales MD [address] [place] [address] [facility] (Brief, pull-on prevail, attend wipes) Social History Tobacco Use Types Packs/Day Years [...] encounter Miscellaneous Notes * Telephone Encounter - Kristi Bradley MA - 01/05/2025 11:13 AM EST Received medical necessity form from [facility] for Brief, pull-on prevail, attend wipes. Formhas been filled out and placed on PCP desk for signature. documented in this encounter Plan of Treatment Upcoming Encounters Date Type Department Care Team (Late st Contact Info) Description 01/29/2025 11:00 AM EDT Office Visit [facility] [address] [place] [address] Vivien Morales MD [address] [place] [address] documented as of this encounter Goals Goal Patient Goal Type Associated Problems Recent Progress Patient-Stated? Author Blood Pressure < 140/90 Blood Pressure 122/70(2024 5:52 PM EST) No Michelle Canela, PharmD Note: Start monitoring blood pressures at home. Call your doctor for any high readings or concerning symptoms Immunizations General Michelle Muñoz, PharmD Note: Come to the pharmacy on 02/26 for Shingrix and PCV20 vaccines documented as of this encounter Visit Diagnoses Not on filedocumented in this encounter Additional Health Concerns Assessment Noted Time PHQ-9 Depression Total Score: 0 01/29/20 24 10:48 AM EDT documented as of this encounter Care Teams Canine Service Teacher Relationship Specialty Start Date End Date Vivien Morales MD [address] [place] [id number] PCP - General Family Medicine 06/19/17 Baudilio Childress MD Orthopaedic Surgery 10/20/24 Dr. Hien Garcia Psychiatry 10/20/24 documented as of this encounter
--- OUTSIDE RECORDS SUMMARY | 2025-01-07 17:24 | XMS_ITS | Clinical Summary ---
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 Name Role Phone Vivien Morales MD Primary Care Provider [phone] Allergies Active Allergy Reactions Criticality Noted Date Comments Getachew Inhibitors Cough 10/15/2012 Medications cetirizine (ZyrTEC) 10 MG tabletIndications: Seasonal allergies TAKE 1 TABLET BY MOUTH ONCE DAILY FOR ALLERGY 4 Active atorvastatin (Lipitor) 10 MG tabletIndications: Hyperlipidemia, unspecified hyperlipidemia type TAKE 1 TABLET BY MOUTH EVERY EVENING 90 tablet 3 4 Active montelukast (Singulair) 10 MG tabletIndications: Sinusitis, unspecified chronicity, unspecified location TAKE 1 TABLET BY MOUTH AT BEDTIME 90 tablet 3 4 Active Blood Pressure kitIndications:[facility] hypertension Check blood pressure three times a week or prn 1 kit 1 4 Active cholecalciferol (Vitamin D-3) 25 MCG tabletIndications: Vitamin D deficiency Take 1 tablet (25 mcg) by mouth at bedtime. 90 tablet 3 4 Active FeroSul 325 (65 Fe) MG tabletIndications: Hx of gastric bypass TAKE 1 TABLET BY MOUTH EVERY MORNING 90 tablet 3 4 Active Ascorbic Acid (vitamin C) 250 MG tabletIndications: Hx of gastric bypass TAKE 1/2 TABLET BY MOUTH EVERY MORNING 45 tablet 3 4 Active losartan (Cozaar) 50 MG tabletIndications: Hypertension, unspecified type TAKE 1 TABLET BY MOUTH EVERY MORNING 90 tablet 3 4 Active chlorthalidone (Hygroton) 25 MG tabletIndications: Hypertension, unspecified type TAKE 1 TABLET BY MOUTH EVERY MORNING 90 tablet 3 4 Active loratadine (Claritin) 10 MG tabletIndications: Seasonal allergies TAKE 1 TABLET BY MOUTH ONCE DAILY NEEDED 90 tablet 3 4 Active traMADol-acetamino phen (UltraCET) 37.5-325 MG tabletIndications: Chronic pain of both knees Take by mouth if needed in the morning, at noon, in the evening, and at bedtime for severe pain. Per Dr. Baudilio Childress Active lamoTRIgine (LaMICtal) 200 MG tabletIndications: Current mild episode of major depressive disorder without prior episode (CMS/HCC) Take by mouth at bedtime. Dr. Hien Garcia Active Melatonin 3 MG tablet dispersibleIndicat ions:Primary insomnia Take by mouth. Dr. Garcia Active DULoxetine (Cymbalta) [address] capsuleIndications :Current mild episode of major depressive disorder without prior episode (CMS/HCC) Take 60 mg by mouth Once per day. Dr. Garcia Active buPROPion XL (Wellbutrin XL) 150 MG 24 hr tabletIndications: Current mild episode of major depressive disorder without prior episode (CMS/HCC) Take 150 mg by mouth Once per day. Dr. Garcia Active azithromycin (Zithromax) 250 MG tabletIndications: Recurrent dry cough Take 2 tablets (500 mg) by mouth Once per day for 1 day, THEN 1 tablet (250 mg) Once per day for 4 days. 6 tablet 5 01/10/20 25 Active Active Problems Patient Care Coordination No te Formatting of this note migh t be different from the original. [facility] Outlook [place]: Ines, member services number [phone], provider services line, , option 4 Problem Noted Date Diagnosed Date Recurrent dry cough 01/05/2025 Assessment & Plan (01/05/2025 6:05 PM EST): Recurrent dry cough x3 weeks. -ordered CXR -prescribed azithromycin (Zithromax) 250 MG, Take 2 tablets (500 mg) by mouth Once per day for 1 day, THEN 1 tablet (250 mg) Once per day for 4 days Low serum vitamin B12 01/05/2025 Overview (01/05/2025): Lab Results Component Value Date VITB12 240 10/21/2024 Assessment & Plan (01/05/2025 6:09 PM EST): Lab Results Component Value Date VITB12 240 10/21/2024 Anemia 01/05/2025 Overview (01/05/2025): Lab Results Component Value Date FERRITIN 323 (H) 10/21/2024 HGB 11.8 (L) 10/21/2024 HGB 12.1 03/15/2023 HGB 13.1 02/14/2023 HGB 13.4 01/28/2023 HGB 12.1 03/09/2022 HEMATOCRIT 36.5 03/15/2023 HEMATOCRIT 36.0 03/09/2022 Assessment & Plan (01/05/2025 6:08 PM EST): Lab Results Component Value Date FERRITIN 323 (H) 10/21/2024 HGB 11.8 (L) 10/21/2024 HGB 12.1 03/15/2023 HGB 13.1 02/14/2023 HGB 13.4 01/28/2023 HGB 12.1 03/09/2022 HEMATOCRIT 36.5 03/15/2023 HEMATOCRIT 36.0 03/09/2022 Dental attrition, excessive, extending into pulp 10/23/2024 Vitamin D deficiency 10/21/2024 Overview (10/21/2024): - Ordered Vitamin D, 25-Hydroxy, Total, Immunoassay 10/21/24 Assessment & Plan (10/21/2024 11:56 AM EST): - Ordered Vitamin D, 25-Hydroxy, Total, Immunoassay 10/21/24 Tuberculosis screening 10/21/2024 Overview (10/21/2024): - Ordered T-SPOT??.TB 10/21/24 Assessment & Plan (10/21/2024 11:56 AM EST): - Ordered T-SPOT??.TB 10/21/24 Primary insomnia 10/21/2024 Overview (10/21/2024): - Prescribed Melatonin 3 MG tablet dispersible 10/21/24 Assessment & Plan (10/21/2024 11:57 AM EST): - Prescribed Melatonin 3 MG tablet dispersible 10/21/24 Tuberculosis 10/21/2024 Periodontal disease 09/03/2024 Incontinence in female 05/30/2023 Overview (01/05/2025): -Pt uses pull ups, wipes, and liners. -pt uses XL pull ups -refilled prescription for bed pads 01/05/25 Assessment & Plan (01/05/2025 6:05 PM EST): -Pt uses pull ups, wipes, and liners. -pt uses XL pull ups -refilled prescription for bed pads 01/05/25 Assessment & Plan (04/27/2024 6:15 PM EDT): -Pt uses pull ups, wipes, and liners. Assessment & Plan (05/30/2023 11:45 AM EDT): Pt uses pull ups, wipes, and liners. Other specified health status 05/20/2023 Overview (04/29/2024): -next physical exam due after January 28, 2025 -eye care facilitated by followed by Dr. Matthew Salas of [facility] -dental home is [facility] -health care proxy on file 01/29/24 Assessment & Plan (04/27/2024 6:16 PM EDT): -next physical exam due after January 2025 -eye care facilitated by followed by Dr. Matthew Salas of [facility] -dental home is [facility] -health care proxy on file 01/29/24 Assessment & Plan (01/29/2024 11:05 AM EDT): -next physical exam due after January 2025 -eye care facilitated by followed by Dr. Matthew Salas of [facility] -dental home is [facility] Assessment & Plan (05/30/2023 9:16 AM EDT): -next physical exam due after 07/06/2023 -eye care facilitated by [facility] last seen11/10/2019 -dental home is Memory impairment 02/14/2023 Overview (04/29/2024): -stable. Had YARD BRAKEMAN and good social support. Assessment & Plan (04/27/2024 6:14 PM EDT): -schedule with RN for MMS exam Assessment & Plan (03/15/2023 10:35 AM EDT): Mostly short term memory unclear if it is related to decreased attention secondary to depression. Obtain recent CT scan of the brain done in ED after last fall. Pt recently restarted antidepresseants fu with PCP and psychiatry to reevaluate. Pt needs to have someone to remind her about medications and assist her with most ADLs due to recurrent falls. I will write a letter for a talent development director is allowed to stay there for the time being. FU with PCP. Assessment & Plan (02/14/2023 1:17 PM EDT): Mostly short term memory unclear if it is related to decreased attention secondary to depression. Obtain recent CT scan of the brain done in ED after last fall. Pt recently restarted antidepresseants fu with PCP and psychiatry to reevaluate. Pt needs to have someone to remind her about medications and assist her with most ADLs due to recurrent falls. I will write a letter for a talent development director is allowed to stay there for the time being. FU with PCP. Repeated falls 02/14/2023 Assessment & Plan (03/15/2023 10:34 AM EDT): Could be related to pt occult GI bleeding from two TAs. Recommended increased water intake. Continue PT at home and ambulation with walker as tolerated. She has a wheelchair for transfers. Needs a talent development director at home. Assessment & Plan (02/14/2023 1:17 PM EDT): Could be related to pt occult GI bleeding from two TAs. Recommended increased water intake. Continue PT at home and ambulation with walker as tolerated. She has a wheelchair for transfers. Needs a talent development director at home. Tubular adenoma of colon 02/14/2023 Assessment & Plan (03/15/2023 10:35 AM EDT): Pt had GI bleeding, now resolved and hemoglobin is stable now. Colonoscopy to be repeated in 1 yea . Pt has strong family history of Colon cancer. Increase PO water intake and FU with PCP in 1 month Assessment & Plan (02/14/2023 1:15 PM EDT): Pt had GI bleeding, now resolved and hemoglobin is stable now. Colonoscopy to be repeated in 1 yea . Pt has strong family history of Colon cancer. Increase PO water intake and FU with PCP in 1 month Hypertension 12/11/2022 Overview (07/22/2024): Well controlled. -continue chlorthalidone 25 mg daily -continue Losartan 50 mg daily -Pt had cough with getachew in past -electrolytes were normal 03/23/21 -furosemide d/c due to BP at goal. -gave BP monitor to monitor at home 07/22/24. Assessment & Plan (01/05/2025 6:10 PM EST): Well controlled. -continue chlorthalidone 25 mg daily -continue Losartan 50 mg daily -Pt had cough with getachew in past -electrolytes were normal 03/23/21 -furosemide d/c due to BP at goal. -gave BP monitor to monitor at home 07/22/24. Assessment & Plan (04/27/2024 6:13 PM EDT): Well controlled. -continue chlorthalidone 25 mg daily -continue Losartan 50 mg daily -Pt had cough with getachew in past -electrolytes were normal 03/23/21 -furosemide d/c due to BP at goal. Assessment & Plan (01/29/2024 11:37 AM EDT): Well controlled. -continue chlorthalidone 25 mg daily -continue Losartan 50 mg daily -Pt had cough with getachew in past -electrolytes were normal 03/23/21 - furosemide d/c due to BP at goal. Assessment & Plan (05/30/2023 9:15 AM EDT): Well controlled. -continue chlorthalidone 25 mg daily -continue Losartan 50 mg daily -Pt had cough with getachew in past -electrolytes were normal 03/23/21 - furosemide d/c due to BP at goal. Assessment & Plan (03/14/2023 10:55 AM EDT): Well controlled. -continue chlorthalidone 25 mg daily -continue Losartan 50 mg daily -Pt had cough with getachew in past -electrolytes were normal 03/23/21 - furosemide d/c due to BP at goal. Current mild episode of ac r depressive disorder without prior episode 12/11/2022 Overview (10/21/2024): Pt is followed by psychiatrist, Dr. Garcia [...] XL) 150 MG 24 hr tablet 10/21/24 Assessment & Plan (01/05/2025 6:05 PM EST): Pt is followed by psychiatrist, Dr. Garcia [...] XL) 150 MG 24 hr tablet 10/21/24 Assessment & Plan (10/21/2024 11:48 AM EST): Pt is followed by psychiatrist, Dr. Garcia [...] XL) 150 MG 24 hr tablet 10/21/24 Assessment & Plan (04/27/2024 6:19 PM EDT): Pt is followed by psychiatrist, Dr. Garcia and is on multiple psychiatric med, topiramate 25 mg two tabs BID, rozerem 8 mg at night, prazosin 5 mg at night, lamotrigine 100 mg at night, bupropion xl 300 daily. Followed by psychiatry and counseling. Assessment & Plan (01/29/2024 11:56 AM EDT): Pt is followed by psychiatrist and is on multiple psychiatric med, topiramate 25 mg two tabs BID, rozerem 8 mg at night, prazosin 5 mg at night, lamotrigine 100 mg at night, bupropion xl 300 daily. Followed by psychiatry and counseling. Assessment & Plan (05/30/2023 9:15 AM EDT): Pt is followed by psychiatrist and is on multiple psychiatric med, topiramate 25 mg two tabs BID, rozerem 8 mg at night, prazosin 5 mg at night, lamotrigine 100 mg at night, bupropion xl 300 daily. Followed by psychiatry and counseling. Assessment & Plan (03/14/2023 10:56 AM EDT): Pt is followed by psychiatrist and is on multiple psychiatric med, topiramate 25 mg two tabs BID, rozerem 8 mg at night, prazosin 5 mg at night, lamotrigine 100 mg at night, bupropion xl 300 daily. Followed by psychiatry and counseling. Seasonal allergies 12/11/2022 Chronic pain of both knees 12/11/2022 Overview (01/07/2025): - followed by Monroe Astudillo - takes tramadol two to three times a week - she ambulates with a walker with a seat - prescription for a new walker requested on 04/09/24 - Prescribed traMADol-acetaminophen (UltraCET) 37.5-325 MG tablet 10/21/24 -s/p knee injection with DEEPA Joshua 01/07/35 Assessment & Plan (10/21/2024 11:47 AM EST): - followed by Monroe Astudillo - takes tramadol two to three times a week - she ambulates with a walker with a seat - prescription for a new walker requested on 04/09/24 - Prescribed traMADol-acetaminophen (UltraCET) 37.5-325 MG tablet 10/21/24 Assessment & Plan (05/01/2024 9:12 AM EDT): -followed by Monroe Astudillo -takes tramadol two to three times a week -she ambulates with a walker with a seat -prescription for a new walker requested on 04/09/24 Hx of gastric bypass 12/11/2022 Overview (10/21/2024): Hx laparoscopic Madhu en Y gastric bypass 10/14/[address] Su. Max weight 240 lbs, currently 55 lbs down. - Ordered Hepatic Function Panel 10/21/24 - Ordered Magnesium 10/21/24 - Ordered Basic Metabolic Panel 10/21/24 - Ordered TSH with Reflex to Free T4 10/21/24 - Ordered CBC auto differential 10/21/24 - Ordered Vitamin B12 10/21/24 - Ordered Ferritin 10/21/24 - Ordered Iron And Total Iron Binding Capacity 10/21/24 Assessment & Plan (10/21/2024 11:51 AM EST): Hx laparoscopic Madhu en Y gastric bypass 10/14/[address] Su. Max weight 240 lbs, currently 55 lbs down. - Ordered Hepatic Function Panel 10/21/24 - Ordered Magnesium 10/21/24 - Ordered Basic Metabolic Panel 10/21/24 - Ordered TSH with Reflex to Free T4 10/21/24 - Ordered CBC auto differential 10/21/24 - Ordered Vitamin B12 10/21/24 - Ordered Ferritin 10/21/24 - Ordered Iron And Total Iron Binding Capacity 10/21/24 Assessment & Plan (01/29/2024 11:56 AM EDT): Hx laparoscopic Madhu en Y gastric bypass 10/14/[address] Su. Max weight 240 lbs, currently 55 lbs down. Assessment & Plan (05/30/2023 9:15 AM EDT): Hx laparoscopic Madhu en Y gastric bypass 10/14/[address] Su. Max weight 240 lbs, currently 55 lbs down. Assessment & Plan (03/14/2023 10:56 AM EDT): aroscopic Madhu en Y gastric bypass 10/14/[address] Su. Max weight 240 lbs, currently 55 lbs down. Dependent on walker for ambulation 12/11/2022 Overview (12/11/2022): Daughter is YARD BRAKEMAN Assessment & Plan (07/22/2024 3:58 PM EDT): Daughter is YARD BRAKEMAN Assessment & Plan (01/29/2024 11:57 AM EDT): Daughter is YARD BRAKEMAN Assessment & Plan (05/30/2023 9:15 AM EDT): Daughter is YARD BRAKEMAN Assessment & Plan (03/14/2023 10:56 AM EDT): Daughter is YARD BRAKEMAN Excessive consumption of soda pop 12/11/2022 Mild intermittent asthma 10/17/2017 Overview (04/27/2024): -Well controlled on prn albuterol prn -Continue singular 10 daily Assessment & Plan (04/27/2024 6:15 PM EDT): -Well controlled on prn albuterol prn -Continue singular 10 daily Assessment & Plan (01/29/2024 11:37 AM EDT): Well controlled on prn albuterol. Continue singular 10 daily Assessment & Plan (05/30/2023 9:16 AM EDT): Well controlled on prn albuterol. Continue singular 10 daily Assessment & Plan (03/14/2023 10:55 AM EDT): Well controlled on prn albuterol. Continue singular 10 daily History of cholecystectomy 10/17/2017 Venous insufficiency of leg 11/26/2012 Hyperlipidemia 07/24/2012 Overview (01/05/2025): Lab Results Component Value Date CHOLESTEROL 139 03/15/2023 LDLCHOL 65 03/15/2023 TRIG 79 03/15/2023 HDLCHOL 58 03/15/2023 CHOLHDLRAT 2.4 03/15/2023 -continue lifestyle modifications -continue atorvastatin 10mg daily -encourage lab draw Assessment & Plan (01/05/2025 6:09 PM EST): Lab Results Component Value Date CHOLESTEROL 139 03/15/2023 LDLCHOL 65 03/15/2023 TRIG 79 03/15/2023 HDLCHOL 58 03/15/2023 CHOLHDLRAT 2.4 03/15/2023 -continue lifestyle modifications -continue atorvastatin 10mg daily -encourage lab draw Assessment & Plan (04/27/2024 6:12 PM EDT): Lab Results Component Value Date CHOLESTEROL 139 03/15/2023 LDLCHOL 65 03/15/2023 TRIG 79 03/15/2023 HDLCHOL 58 03/15/2023 CHOLHDLRAT 2.4 03/15/2023 -continue lifestyle modifications -continue atorvastatin 10mg daily -encourage lab draw Assessment & Plan (01/29/2024 11:55 AM EDT): Lab Results Component Value Date CHOLESTEROL 139 03/15/2023 LDLCHOL 65 03/15/2023 TRIG 79 03/15/2023 HDLCHOL 58 03/15/2023 CHOLHDLRAT 2.4 03/15/2023 - Continue Atorvastatin 10mg QD -continue lifestyle modifications Assessment & Plan (05/30/2023 9:15 AM EDT): Lab Results Component Value Date CHOLESTEROL 139 03/15/2023 LDLCHOL 65 03/15/2023 TRIG 79 03/15/2023 HDLCHOL 58 03/15/2023 CHOLHDLRAT 2.4 03/15/2023 - Continue Atorvastatin 10mg QD -continue lifestyle modifications Assessment & Plan (03/14/2023 10:55 AM EDT): - Cholesterol profile on 12/2018, LDL 83, HDL 49, TG 68, TC 145 - Continue Atorvastatin 10mg QD Obstructive sleep apnea syndrome 07/24/2012 Overview (07/22/2024): [facility] 04/29/2019 -CPAP machine broken -re-referred to [facility] 04/29/24 -still without CPAP, given phone number to call [facility] 07/22/24 Assessment & Plan (07/22/2024 4:09 PM EDT): [facility] 04/29/2019 -CPAP machine broken -re-referred to [facility] 04/29/24 -still without CPAP, given phone number to call [facility] 07/22/24 Assessment & Plan (05/01/2024 9:13 AM EDT): [facility] 04/29/2019 -CPAP machine broken -re-referred to [facility] 04/29/24 Assessment & Plan (01/29/2024 11:37 AM EDT): [facility] 04/29/2019 -Tolerating CPAP well Assessment & Plan (05/30/2023 9:16 AM EDT): [facility] 04/29/2019 -Tolerating CPAP well Assessment & Plan (03/14/2023 10:55 AM EDT): Tolerating CPAP well. Gastroesophageal reflux disease 07/24/2012 Osteoarthritis of knee 07/24/2012 Morbid obesity 07/24/2012 Overview (01/05/2025): Lab Results Component Value Date HGBA1C 5.5 10/21/2024 HGBA1C 5.1 03/15/2023 HGBA1C 5.2 03/09/2022 HGBA1C 5.3 03/09/2021 GLUCOSE 96 10/21/2024 Assessment & Plan (01/05/2025 6:06 PM EST): Lab Results Component Value Date HGBA1C 5.5 10/21/2024 HGBA1C 5.1 03/15/2023 HGBA1C 5.2 03/09/2022 HGBA1C 5.3 03/09/2021 GLUCOSE 96 10/21/2024 Assessment & Plan (10/21/2024 11:52 AM EST): - Ordered Hemoglobin A1c 10/21/24 Resolved Problems Problem Noted Date Diagnosed Date Resolved Date Dental attrition, excessive, extending into pulp 09/03/2024 10/20/2024 Breast cancer screening by mammogram 05/01/2024 10/20/2024 Overview (05/01/2024): -mammogram order placed 04/29/24 Assessment & Plan (05/01/2024 9:16 AM EDT): -mammogram order placed 04/29/24 Dental attrition, excessive, extending into pulp 08/06/2023 04/08/2024 Dental caries 08/06/2023 04/08/2024 Cough 03/15/2023 05/20/2023 Closed fracture of left wrist 02/14/2023 02/14/2023 Wrist fracture, closed, angela morris, initial encounter 02/14/2023 04/03/2024 Hypokalemia 12/11/2022 04/03/2024 Overview (12/11/2022): -Potassium was 3.6 03/23/21 -Potassium normal at 4.0 03/2022 Assessment & Plan (01/29/2024 11:56 AM EDT): -Potassium was 3.6 03/23/21 -Potassium normal at 4.0 03/2022 Assessment & Plan (05/30/2023 9:16 AM EDT): -Potassium was 3.6 03/23/21 -Potassium normal at 4.0 03/2022 Assessment & Plan (03/14/2023 10:55 AM EDT): -Potassium was 3.6 03/23/21 -Potassium normal at 4.0 03/2022 Constipation 08/16/2016 04/08/2024 Varicose veins 04/13/2014 04/08/2024 Edema of foot 04/13/2014 04/03/2024 Sinusitis 07/24/2012 04/03/2024 Seborrheic dermatitis 07/24/20122023 HTN (hypertension) 07/24/2012 3 Assessment & Plan (02/14/2023 1:18 PM EDT): BP fairly controlled. Continue Losartan 50 mg + chlorthalidone 25 and FU BP at home with VNA. FU with PCP in 4-5 weeks. Counseled re low salt diet/increase moderate physical activity. Check home BP BIW and prn CP/RODRIGUEZ/OCAMPO Non smoking patient. Labs on 01/28 showed normal BMP Depressive disorder 04/14/2012 05/20/20 23 Assessment & Plan (03/15/2023 10:35 AM EDT): Pt was off medications until recently. Continue duloxetine 60mg + lamictal 200mg qhs and FU with mental health provider Continue Rozerem 8mg qhs. Needs to have repeated mini COG to see if memory impairement is related to depression Assessment & Plan (02/14/2023 1:16 PM EDT): Pt was off medications until recently. Continue duloxetine 60mg + lamictal 200mg qhs and FU with mental health provider Continue Rozerem 8mg qhs. Needs to have repeated mini COG to see if memory impairement is related to depression Obesity 04/14/2012 03/13/2023 Encounters Date Type Department Care Team Description 01/05/2025 6:00 PM EST Office Visit [facility] [address] [address] Vivien Morales MD Recurrent dry cough (Primary Dx); Morbid obesity (CMS/HCC); Current mild episode of major depressive disorder without prior episode (CMS/HCC); Incontinence in female; Low serum vitamin B12; Anemia, unspecified type; Hyperlipidemia, unspecified hyperlipidemia type; Hypertension, unspecified type 01/05/2025 Telephone [facility] [address] [place] [id number] Vivien Morales MD Durable Medical Equipment (Bed pads) 01/05/[address] [address] Vivien Morales MD [employer] (Brief, pull-on prevail, attend wipes) 12/28/[address] [address] Vivien Morales MD Nurse Triage 11/13/2024 Telephone [facility] [address] [place] [address] Antonia Lo MA January Recall 11/09/[address] [address] Nessa Beach [place] DME from [facility] 10/26/[address] [address] N[place] DME from [facility] 10/23/2024 1:30 PM EST Office Visit [facility] [address] [place] [address] Jerardo Schafer DDS Dental attrition, excessive, extending into pulp (Primary Dx) 10/23/2024 Telephone [facility] [address] [place] [address] Nessa [place] DME Rx to [facility] 10/22/2024 Telephone [facility] [address] [place] [address] Nessa [place] DME Rx for pullups/wipes 10/21/2024 11:15 AM EST Office Visit [facility] [address] [place] [address] Vivien Morales MD Chronic pain of both knees (Primary Dx); Current mild episode of major depressive disorder without prior episode (CMS/HCC); Primary insomnia; Primary hypertension; Tuberculosis; Tuberculosis screening; Vitamin D deficiency; Hyperlipidemia, unspecified hyperlipidemia type; Hx of gastric bypass; Morbid obesity (CMS/HCC); Incontinence in female 10/21/2024 Telephone [facility] [address] [place] [address] Vivien Morales MD 10/21/2024 Travel from Last 3 Months Immunizations Name Administration Dates Next Due Influenza injectable quadriv alent IIV4 with preservative 10/17/2017 Influenza injectable quadriv alent preservative free 11/20/2018 Influenza, High Dose Seasona l, Preservative Free 07/22/2024,12/16/2019 Influenza, IIV3, injectable 08/30/2011 Influenza, Split (incl. yo fied surface antigen) 12/11/2013,07/24/2012 Moderna Covid-19 Vaccine 12+ 05/14/2022,01/20/20 21,12/22/2020 Pfizer Covid-19 Vaccine 12+ 01/29/2024 Pfizer Covid-19 Vaccine 12+ Bivalent 03/15/2023 Pneumococcal Conjugate PCV 13 10/17/2017 Pneumococcal Conjugate PCV 20 02/27/2024 Pneumococcal Polysaccharide PPSV23 12/11/2013 RSV Bivalent 01/29/2024 Td (adult), 5 Lf tetanus tox oid, preservative free, adsorbed 12/04/2012 Tdap 03/15/2023,07/24/2012 Zoster, Recombinant 02/27/2024,05/22/2022 Zoster, live 10/17/2017 Social History Tobacco Use Types Packs/Day Years Used Date Smoking Tobacco: Never Passive Smoke Exposure: Never Smokeless Tobacco: Never Tobacco Cessation:Counseling Given: Not Answered Alcohol Use Standard Drinks/Week Comments Never 0 [...] Orientation Straight 09/03/2022 10 :18 AM EDT Last Filed Vital Signs Vital Sign Reading [...] Mass Index 40.79 01/05/2025 5:52 PM EST Plan of Treatment Upcoming Encounters Date Type Department Care Team (Late st Contact Info) Description 01/29/2025 11:00 AM EDT Office Visit [facility] [address] [place] [address] Vivien Morales MD [address] [place] [address] Health Maintenance Due Date Last Done Comments Dental Oral Exam 04/11/2019 10/10/2018, , 09/03/2016, Additional history exists Dental Prophylaxis 04/11/2019 10/10/2018, 0 03/14/2018, 09/21/2016, Additional history exists Dental X-Ray: Bitewings 10/11/2019 10/10/20 18, 06/18/2017, 02/22/2016, Additional history exists SDOH Screening 01/20/2025 01/21/2024 Depression Screening 01/28/2025 01/29/2024, 01/29/20 24 Alcohol/Substance Use Screening 10/21/2025 10/21/2024 COVID-19 Vaccine ( season) 2025 01/29/2024, 03/15/2023, 05/14/2022, Additional history exists Postponed from 07/05/2024 (Patient Refused) Tobacco Screening 01/05/2026 01/05/2025 Dental X-Ray: Full Mouth 08/07/2026 08/06/2023, 01/02 Lipid Panel 03/15/2028 03/15/2023 DTaP/Tdap/Td Vaccines (4 - Td or Tdap) 03/15/2033 03/15/2023, 12/04/2012, 07/24/2012 Colonoscopy Discontinued 01/30/2023, 08/04/2016 Colorectal Cancer Screening Discontinued Hepatitis C Screening Completed 03/15/2023 RSV Patients and Patients Aged 60 years or older Completed 01/29/2024 Pneumococcal Vaccine: 50+ Years Completed 02/27/2024, 10/17/2017, 12/11/2013 Zoster Vaccines Completed 02/27/2024, 05/04, 10/17/2017 Influenza Vaccine Completed 07/22/2024, , 11/20/2018, Additional history exists CT Colonography Discontinued FIT DNA/Cologuard Discontinued FIT Discontinued FOBT Discontinued HIB Vaccines Aged Out No longer eligi ble based on patient's age to complete this topic HPV Vaccines Aged Out No longer eligi ble based on patient's age to complete this topic Hepatitis A Vaccines Aged Out No long er eligible based on patient's age to complete this topic Hepatitis B Vaccines Aged Out No long er eligible based on patient's age to complete this topic IPV Vaccines Aged Out No longer eligi ble based on patient's age to complete this topic Meningococcal Vaccine Aged Out No nikhil agustin eligible based on patient's age to complete this topic RSV under 20 months Aged Out No longe r eligible based on patient's age to complete this topic Rotavirus Vaccines Aged Out No longer eligible based on patient's age to complete this topic Sigmoidoscopy Discontinued Goals Goal Patient Goal Type Associated Problems Recent Progress Patient-Stated? Author Blood Pressure < 140/90 Blood Pressure 122/70(2024 5:52 PM EST) No Michelle Canela, Kevin Note: Start monitoring blood pressures at home. Call your doctor for any high readings or concerning symptoms Immunizations General No Michelle Canela, Kevin Note: Come to the pharmacy on 02/26 for Shingrix and PCV20 vaccines Procedures Procedure Name Priority Date/Time Associated Diagnosis Comments XR CHEST 2 VIEWS Routine 01/07/2025 2:10 PM EST Recurrent dry cough CASE PRESENTATION, DETAILED AND EXTENSIVE TREATMENT PLANNING Routine 10/23/2024 1:30 PM EST 9 EXTRACTION, ERUPTED TOOTH OR EXPOSED ROOT (ELEVATION/FORCEPS REMOVAL) Routine 10/23/2024 1:30 PM EST IRON AND TOTAL IRON BINDING CAPACITY Routine 10/21/2024 11:53 AM EST Hx of gastric bypass FERRITIN Routine 10/21/2024 11:53 AM EST Hx of gastric bypass VITAMIN B12 Routine 10/21/2024 11:53 AM EST Hx of gastric bypass T-SPOT(R).TB Routine 10/21/2024 11:53 AM EST Tuberculosis screening VITAMIN D,25-OH,TOTAL,IA Routine 10/21/2024 11:53 AM EST Vitamin D deficiency CBC WITH AUTO DIFFERENTIAL Routine 10/21/2024 11:53 AM EST Hx of gastric bypass TSH W/REFLEX TO FT4 Routine 10/21/2024 1 1:53 AM EST Hx of gastric bypass BASIC METABOLIC PANEL Routine 10/21/2024 11:53 AM EST Hx of gastric bypass MAGNESIUM Routine 10/21/2024 11:53 AM EST Hx of gastric bypass HEPATIC FUNCTION PANEL Routine 10/21/2024 11:53 AM EST Hx of gastric bypass HEMOGLOBIN A1C Routine 10/21/2024 11:53 AM EST Morbid obesity (CMS/HCC) PANORAMIC RADIOGRAPHIC IMAGE Routine 08/06/2023 12:30 PM EDT HEPATITIS C AB W/REFL TO HCV RNA, QN, PCR Routine 03/15/2023 10:22 AM EDT Encounter for hepatitis C screening test for low risk patient LIPID PANEL, STANDARD Routine 03/15/2023 10:22 AM EDT Hyperlipidemia, unspecified hyperlipidemia type HM COLONOSCOPY Routine 01/30/2023 PROPHYLAXIS - ADULT Routine 10/10/2018 1 2:00 AM EST BITEWINGS - 2 RADIOGRAPHIC IMAGES Routine 10/10/2018 12:00 AM EST PERIODIC ORAL EVALUATION - ESTABLISHED PATIENT Routine 10/10/2018 12:00 AM EST from Last 3 Months or Most Recently Relevant to Health Maintenance Results * XR Chest 2 Views (01/07/2025 2:10 PM EST) Anatomical Region Laterality Modality Chest Radiographic Allison ging 01/07/2025 2:10 PM EST Narrative 01/07/2025 2:51 PM EST ?[facility] ?[address] ?[place] [address] ?XRay Report ? Signed ? Patient: Norma Francis ?MR#: [id number] ?? 181 ? : 1945 ?Acct:[id number] ? Age/Sex: 79 / F ?ADM Date: 01/07/25 ? Loc: HO.HHCX ? Attending Dr: Vivien Morales MD ? Ordering Physician: Vivien Morales MD ?? Date of Service: 01/07/25 ?? Procedure(s): XR chest 2V ?? Accession Number(s): [id number] ? cc: Vivien Morales MD ? EXAMINATION: [...] 02:48 PM EST RP ? Dictated By: ?Yessica,Sav S MD ? Signed By: ?<Electronically signed by Sav S Yessica, MD in OV> ?01/07/25 1448 ? DD/ 1410 ? TD/TT: 01/07/25 1420 ? Area Supervisor: MSM ? Procedure Note Carmela Castro - 01/07/2025 [facility] [address] [place] [address] XRay Report Signed Patient: Norma FrancisMR#: [id number] : 8Acct:[id number] Age/Sex: 79 / FADM Date: 01/07/25 Loc: HO.HHCX Attending Dr: Vivien Morales MD Ordering Physician: Vivien Morales MD Date of Service: 01/07/25 Procedure(s): XR chest 2V Accession Number(s): [id number] cc: Vivien Morales MD EXAMINATION: XR CHEST CLINICAL INFORMATION: cough for 3 weeks COMPARISON: Chest x-ray 03/15/2023 TECHNIQUE: 2 views of the chest were obtained. FINDINGS: No significant abnormality is noted involving the heart, lungs, mediastinum, bony thorax or soft tissues. XR/XR chest 2V IMPRESSION: Unremarkable chest examination. Electronically signed by: Sav Juan MD 01/07/2025 02:48 PM EST Dictated By: Sav Juan MD Signed By: <Electronically signed by Sav Juan MD in OV> 01/07/25 1448 DD/ 1410 TD/TT: 01/07/25 1420 Area Supervisor: [facility] Vivien Morales MD IMG XR PROCEDURES Final Re sult * Vitamin D, 25-Hydroxy, Total, Immunoassay (10/21/2024 11:53 AM EST) [facility] Vitamin D 25-OH Total 40.7 >30 ng/mL [facility] Comment:Health Based Referen ce Values*< 20 ng/mL Cndjlflki58-63 ng/mL Insufficient> 30 ng/mL Sufficient*Ayaz DALTON. N [...] confirmed with another method such as LC-MS/MS. Blood 10/21/2024 11:5 3 AM EST 10/21/2024 1:52 PM EST Vivien Morales MD LAB BLOOD ORDERABLES Final Result [facility] [address] [place] [phone] * T-SPOT??.TB (10/21/2024 11:53 AM EST) [facility] Signature T Spot TB Negative Negative [facility] Comment:A negative test resu lt does not exclude the possibilityof exposure to or infection with Mycobacteriumtuberculosis (M. tuberculosis). Patients with recentexposure to TB infected individuals exhibiting anegative T-SPOT.TB result should be considered forretesting within 6 weeks or if other relevant clinicalsymptoms indicate. Results from T-SPOT.TB testing mustbe used in conjunction with each individual'sepidemiological history, current medical status,and results of other diagnostic evaluations.The T-SPOT.TB test is qualitative and results arereported as positive, borderline, or negative, giventhat the test controls perform as expected. In linewith the Centers for Disease Control and Prevention's2010 recommendation to report quantitative measurementsalongside the qualitative result, the laboratoryprovides spot counts for informational purposes only.The T-SPOT.TB test should not be interpreted as aquantitative test. TS PANEL A 0 [facility] TS PANEL B 0 [facility] Negative Control Passed [facility] Positive Control Passed [facility] Comment:For additional infor matmacarena, please refer tohttp://education.[employer].Shoutitout/faq/ZJZ096(This link is being provided for informational/educational purposes only.)THIS TEST WAS PERFORMED AT:[employer]/[facility] [place] [address]LQLTBLBVON ANAND MD,PHD 10/21/2024 11:5 3 AM EST 10/21/2024 1:52 PM EST Vivien Morales MD LAB BLOOD ORDERABLES Final Result Performing Organization Address City/[facility]/ZIP Co de Phone Number [facility] [address] [place] [address] [phone] * TSH with Reflex to Free T4 (10/21/2024 11:53 AM EST) [facility] TSH reflex Free T4 2.99 0.32 - 4.0 uIU/mL [facility] Blood 10/21/2024 11:5 3 AM EST 10/21/2024 1:52 PM EST Vivien Morales MD LAB BLOOD ORDERABLES Final Result Performing Organization Address [facility]/ZIP Co de Phone Number [facility] [address] [place] [phone] * (ABNORMAL) CBC auto differential (10/21/2024 11:53 AM EST) [facility] White Blood Count 11.5(H) 4.8 - 10.8 X10*3/uL [facility] Red Blood Count 3.85(L) 4.20 - 5.50 X10*6/uL [facility] Hemoglobin 11.8(L) 12.0 - 16.0 g/dl [facility] Hematocrit 36.3(L) 37.0 - 47.0 % [facility] Mean Corpuscular Volume 94.3 80.0 - 98.0 fL [facility] Mean Corpuscular Hemoglobin 30.6 27.0 - 33.0 pg [facility] Mean Corpuscular HGB Conc 32.5 31.0 - 35.0 g/dl [facility] Red Cell Distribution Width 13.3 11.0 - 16.0 % [facility] Platelet Count 436(H) 160 - 400 X10*3/uL [facility] Mean Platelet Volume 9.1(L) 9.4 - 12.3 fL [facility] Neutrophils Percent Auto 76.7(H) 45 - 73 % [facility] Imm Gran Pct Auto 0.6(H) 0.0 - 0.4 % [facility] Lymphocytes Percent Auto 12.8(L) 20 - 40 % [facility] Monocytes Percent Auto 7.4 2 - 11 % [facility] Eosinophils Percent Auto 1.7 0 - 4 % [facility] Basophils Percent Auto 0.8 0 - 2 % [facility] NRBC Pct Auto 0.0 0.0 - 0.2 /100WBC [facility] Neutrophils Absolute Auto 8.8(H) 2.0 - 8.3 x10*3/uL [facility] Imm Gran Abs Auto 0.07(H) 0.00 - 0.03 X10*3/uL [facility] Lymphocytes Absolute Auto 1.5 1.2 - 4.9 X10*3/uL [facility] Monocytes Absolute Auto 0.9 0.1 - 1.2 X10*3/uL [facility] Eosinophils Absolute Auto 0.2 0.0 - 0.4 X10*3/uL [facility] Basophils Absolute Auto 0.1 0.0 - 0.2 X10*3/uL [facility] NRBC Abs Auto 0.000 0.0 - 0.012 X10*3/uL [facility] Blood Venous blood specimen / Unknown 10/21/2024 11:53 AM EST 10/21/2024 1:52 PM EST Vivien Morales MD LAB BLOOD ORDERABLES Final Result [facility] [address] [place] [phone] * Iron And Total Iron Binding Capacity (10/21/2024 11:53 AM EST) Iron 78 30 - 160 mcg/dL [facility] Total Iron Binding Capacity 273 228 - 428 mcg/dL [facility] Percent Iron Saturation 29 15 - 50 % [facility] Unsaturated Iron Binding 195 ug/dL [facility] Blood Venous blood specimen / Unknown 10/21/2024 11:53 AM EST 10/21/2024 1:52 PM EST Vivien Morales MD LAB BLOOD ORDERABLES Final Result Performing Organization Address [facility] Co de Phone Number [facility] [address] [place] [phone] * Magnesium (10/21/2024 11:53 AM EST) Magnesium 2.2 1.6 - 2.6 mg/dL [facility] Blood Venous blood specimen / Unknown 10/21/2024 11:53 AM EST 10/21/2024 1:52 PM EST Vivien Morales MD LAB BLOOD ORDERABLES Final Result Performing Organization Address [facility] Phone Number [facility] [address] [place] [phone] * Hemoglobin A1c (10/21/2024 11:53 AM EST) Hemoglobin A1c 5.5 <6.0 % [facility] Comment:Hemoglobin A1C Refer ence Range Adults: 4.8 - 6.0 % Non diabetic: < 6.0 % Goal: < 7.0 %Additional Action Suggested: > 8.0 %Note: Hemoglobin A1c results are invalid for patients with abnormal amounts of HbF. Blood transfusions may impact the HbA1c concentration in the patient sample. Estimated Average Glucose 111 mg/dL [facility] Comment:eAG = Estimated ave rage glucose which is %A1C expressed asaverage glucose, using the formula of the K9I-BzszkogZtobsvw Glucose study (ADAG), Diabetes Care, Vol.31,#8,Jun. 2007 Blood Venous blood specimen / Unknown 10/21/2024 11:53 AM EST 10/21/2024 1:52 PM EST Vivien Morales MD LAB BLOOD ORDERABLES Final Result Performing Organization Address [facility] Phone Number [facility] [address] [place] [phone] * (ABNORMAL) Ferritin (10/21/2024 11:53 AM EST) Pathologist [facility] Ferritin 323(H) 10 - 250 ng/mL [facility] Blood Venous blood specimen / Unknown 10/21/2024 11:53 AM EST 10/21/2024 1:52 PM EST Vivien Morales MD LAB BLOOD ORDERABLES Final Result Performing Organization Address [facility]/ZIP Co de Phone Number [facility] [address] [place] [phone] * Vitamin B12 (10/21/2024 11:53 AM EST) Pathologist [facility] Vitamin B12 240 200 - 900 pg/mL [facility] Comment:NORMAL 200-900 PG/M L INDETERMINATE 160-199 PG/ML DEFICIENT < 160 PG/ML Blood Venous blood specimen / Unknown 10/21/2024 11:53 AM EST 10/21/2024 1:52 PM EST Vivien Morales MD LAB BLOOD ORDERABLES Final Result Performing Organization Address City/[facility]/ZIP Co de Phone Number [facility] [address] [place] [phone] * (ABNORMAL) Hepatic Function Panel (10/21/2024 11:53 AM EST) Pathologist [facility] Bilirubin, Total 0.6 0.0 - 1.0 mg/dL [facility] Bilirubin, Direct 0.3 0.0 - 0.5 mg/dL [facility] Aspartate Amino Transferase 24 5 - 31 U/L [facility] Alanine Aminotransferase 27 0 - 31 U/L [facility] Total Protein 6.7 6.5 - 8.0 g/dL [facility] Albumin Level 3.6 3.5 - 5.0 g/dL [facility] Alkaline Phosphatase 159(H) 39 - 117 U/L [facility] Blood Venous blood specimen / Unknown 10/21/2024 11:53 AM EST 10/21/2024 1:52 PM EST Vivien Morales MD LAB BLOOD ORDERABLES Final Result Performing Organization Address [facility] de Phone Number [facility] [address] [place] [phone] * (ABNORMAL) Basic Metabolic Panel (10/21/2024 11:53 AM EST) Pathologist [facility] Sodium 142 135 - 145 mmol/L [facility] Potassium 3.6 3.3 - 5.1 mmol/L [facility] Chloride 107 96 - 108 mmol/L [facility] Carbon Dioxide 27 22 - 29 mmol/L [facility] Anion Gap 12 12 - 20 [facility] Urea Nitrogen (BUN) 17(H) 9 - 16 mg/dL [facility] Creatinine, Serum 0.75 0.5 - 1.4 mg/dL [facility] Estimated Glomerular Filt Rate >60 [facility] Comment:Chronic Kidney Disea se: Estimated GFR < 60 mL/min/1.55z4Skzpac Kidney Disease: Estimated GFR < 15 mL/min/1.73m2 Glucose 96 60 - 115 mg/dL [facility] Calcium 9.0 8.4 - 10.2 mg/dL [facility] Blood Venous blood specimen / Unknown 10/21/2024 11:53 AM EST 10/21/2024 1:52 PM EST Vivien Morales MD LAB BLOOD ORDERABLES Final Result Performing Organization Address [facility] Co de Phone Number [facility] [address] [place] [phone] * Hepatitis C Antibody with Reflex to HCV, RNA, Quantitative, Real-Time PCR (03/15/2023 10:22 AM EDT) Hepatitis C Antibody NON-REACT KARY NON-REACT KARY [facility] [place] [facility] Index 0.06 <1.00 [facility] [place] [facility] Comment: HCV antibody was non-reactive. There is no laboratory evidence of HCV infection. In most cases, no further action is required. However, if recent HCV exposure is suspected, a test for HCV RNA (test code 63568) is suggested. For additional information please refer to http://[employer].Idiro/faq/XQH54a9 (This link is being provided for informational/ educational purposes only.) Blood Venous blood specimen / Unknown 03/15/2023 10:22 AM EDT 03/15/2023 10:23 AM EDT Narrative [facility] - 03/20/2023 5:47 PM EDT FASTING:YES FASTING: YES us Vivien Morales MD LAB BLOOD ORDERABLES Final Result [facility] [address], [place] [address] [facility] [place] [facility] [address] [place] [phone] * Lipid Panel, Standard (03/15/2023 10:22 AM EDT) [facility] Signature Cholesterol, Total 139 <200 mg/dL [facility] [place] [facility] HDL Cholesterol 58 > OR = 50 mg/dL [facility] [place] [facility] Triglycerides 79 <150 mg/dL [facility] [place] [facility] LDL Cholesterol 65 mg/dL (calc) [facility] [place] [facility] Comment: Reference range: <100 Desirable range <100 mg/dL for primary prevention; ?? <70 mg/dL for patients with CHD or diabetic patients with > or = 2 CHD risk factors. LDL-C is now calculated using the Angela calculation, which is a validated novel method providing better accuracy than the Friedewald equation in the estimation of LDL-C. Milo DEJESUS et al. MARION. 2013;310(19): 8162-4057 (http://education.Handprint/faq/GYD100) Chol/HDLC Ratio 2.4 <5.0 (calc) [facility] [place] [facility] Non-HDL Cholesterol 81 <130 mg/dL (calc) Amanda Huff [facility] Comment: For patients with diabetes plus 1 major ASCVD risk factor, treating to a non-HDL-C goal of <100 mg/dL (LDL-C of <70 mg/dL) is considered a therapeutic option. Blood Venous blood specimen / Unknown 03/15/2023 10:22 AM EDT 03/15/2023 10:23 AM EDT Narrative [facility] - 03/20/2023 5:47 PM EDT FASTING:YES FASTING: YES Vivien Morales MD LAB BLOOD ORDERABLES Final Result [facility] [address], [place] [address] [facility] [place] [facility] [address] [place] [phone] * Colonoscopy (01/30/2023) [facility] Colonoscopy Normal Normal Historical Provider HEALTH MAINTENANCE Final Result from Last 3 Months or Most Recently Relevant to Health Maintenance Insurance [facility] - [facility] Advance Directives Documents on File Type Date Recorded Patient Board Hammer Operator Expl anation Advance Directives and Living Will 01/29/2024 Health Care Proxy 01/29/24 Care Teams Jack Machine Operator Relationship Specialty Start Date End Date Tra[place], MD Vivien [address] [phone] PCP - General Family Medicine 06/19/17 Baudilio Childress MD Orthopaedic Surgery 10/20/24 Dr. Hien Garcia Psychiatry 10/20/24
--- OUTSIDE RECORDS SUMMARY | 2025-01-07 17:24 | XMS_ITS | Encounter Summary ---
Author Organization [employer] Address [address] [place] [address] Care Team Providers Care Collator Hand Name Role Phone Vivien Morales MD Primary Care Provider [phone]- [phone] Encounter Details Date Type Department Care Team ([facility] Contact Info) Description 01/29/2024 Telephone [facility] [address] [place] [address] Vivien Morales MD [address] [place] [address] Social History Tobacco Use Types Packs/Day Years [...] encounter Miscellaneous Notes * Telephone Encounter - Dionne Prince RN - 01/30/2024 8:52 AM EDT T spot ordered documented in this encounter Plan of Treatment Upcoming Encounters Date Type Department Care Team (Late st Contact Info) Description 01/29/2025 11:00 AM EDT Office Visit [facility] [address] [place] [phone] Vivien Morales MD [address] [place] [phone] Scheduled Orders Name Type Priority Associated Diagnoses Orde r Schedule T-SPOT??.TB Lab Routine Screening examination for pulmonary tuberculosis Expected: 01/30/2024 (Approximate), Expires: 01/29/2025 documented as of this encounter Visit Diagnoses Diagnosis Screening examination for pulmonary tuberculosis documented in this encounter Additional Health Concerns Assessment Noted Time PHQ-9 Depression Total Score: 0 01/29/20 24 10:48 AM EDT documented as of this encounter Care Teams Collator Hand Relationship Specialty Start Date End Date Vivien Morales MD [address] [place] [phone] PCP - General Family Medicine 06/19/17 Baudilio Childress MD Orthopaedic Surgery 10/20/24 Dr. Hien Garcia Psychiatry 10/20/24 documented as of this encounter
--- OUTSIDE RECORDS SUMMARY | 2025-01-07 17:24 | XMS_ITS | Encounter Summary ---
Author Organization [facility] [place] [facility] Address [address] [facility] [facility] [address] [place] [address] Care Team Providers Care Tooling Supervisor Name Role Phone Vivien Morales MD Primary Care Provider [phone]- [phone] Encounter Details Date Type Department Care Team (Late st Contact Info) Description 05/22/2023 Abstract [facility] [address] [place] [phone] Vivien Morales MD [address] [place] [address] [phone] Social History Tobacco Use Types Packs/Day Years [...] Description 01/29/2025 11:00 AM EDT Office Visit [facility] [address] [place] [phone] Vivien Morales MD [address] [place] [address] [phone] documented as of this encounter Visit Diagnoses Not on filedocumented in this encounter Additional Health Concerns Assessment Noted Time PHQ-9 Depression Total Score: 11 023 11:17 AM EDT documented as of this encounter Care Teams Tooling Supervisor Relationship Specialty Start Date End Date Vivien Morales MD [address] [place] [address] PCP - General Family Medicine 06/19/17 Baudilio Childress MD Orthopaedic Surgery 10/20/24 Dr. Hien Garcia Psychiatry 10/20/24 documented as of this encounter
--- OUTSIDE RECORDS SUMMARY | 2025-01-07 17:24 | XMS_ITS | Encounter Summary ---
Author Organization [employer] Address [address] [address] [place] [address] Care Team Providers Care High Density Talc Coater Operator Name Role Phone Vivien Morales MD Primary Care Provider [phone]- [phone] Reason for Visit * Reason Onset Date Comments Durable Medical Equipment 01/05/2025 Bed pa ds Encounter Details Date Type Department Care Team ([facility] st Contact Info) Description 01/05/2025 Telephone [facility] [address] [place] [address] Vivien Morales MD [address] [place] [address] Durable Medical Equipment (Bed pads) Social History Tobacco Use Types Packs/Day Years [...] encounter Miscellaneous Notes * Telephone Encounter - Mirna Hussein - 01/06/2025 9:53 AM EST DME RX for Disposable underpads/bedpads generated and placed on providers desk for signature. * Telephone Encounter - Vivien Morales MD - 01/05/2025 6:04 PM EST Order pads for bed, dx incontinance documented in this encounter Plan of Treatment Upcoming Encounters Date Type Department Care Team (Late st Contact Info) Description 01/29/2025 11:00 AM EDT Office Visit [facility] [address] [place] [address] Vivien Morales MD [address] [place] [address] documented as of this encounter Goals Goal Patient Goal Type Associated Problems Recent Progress Patient-Stated? Author Blood Pressure < 140/90 Blood Pressure 122/70(2024 5:52 PM EST) Michelle Muñoz, PharmD Note: Start monitoring blood pressures at home. Call your doctor for any high readings or concerning symptoms Immunizations General Michelle Muñoz, PharmD Note: Come to the pharmacy on 02/26 for Shingrix and PCV20 vaccines documented as of this encounter Visit Diagnoses Not on filedocumented in this encounter Additional Health Concerns Assessment Noted Time PHQ-9 Depression Total Score: 0 01/29/20 10:48 AM EDT documented as of this encounter Care Teams High Density Talc Coater Operator Relationship Specialty Start Date End Date Vivien Morales MD [address] [place] [address] PCP - General Family Medicine 06/19/17 Baudilio Childress MD Orthopaedic Surgery 10/20/24 Dr. Hien Garcia Psychiatry 10/20/24 documented as of this encounter
== END 2025-01-07 14:11 | disposition home or self-care (01) ==
LOC: HO.HHCX 14:10
PROVIDERS: Visit Provider Family Medicine
DX: R05.8 Other specified cough (principal)
CPT/HCPCS: 71046

== ENCOUNTER → 2025-01-07 14:10 | Outpatient (BNV) | payer OTHER, SELFPAY | PROVIDERS: Visit Provider Radiology Diagnostic Radiology | DX: R05.8 Other specified cough (principal) | CPT/HCPCS: 71046 ==

== ENCOUNTER 2025-01-28 08:22 | Outpatient (REF) | payer OTHER, SELFPAY ==
[2025-01-28 11:08] LABS: MANUAL DIFF FLAG NO
[2025-01-28 11:14] LABS: Basophils Absolute Auto 0.1 X10*3/uL (0.0-0.2); Basophils Percent Auto 0.6 % (0-2); Eosinophils Absolute Auto 0.1 X10*3/uL (0.0-0.4); Eosinophils Percent Auto 1.2 % (0-4); Hematocrit 37.1 % (37.0-47.0); Hemoglobin 12.1 g/dl (12.0-16.0); Imm Gran Abs Auto 0.04 X10*3/uL (0.00-0.03); Imm Gran Pct Auto 0.4 % (0.0-0.4); Lymphocytes Absolute Auto 1.7 X10*3/uL (1.2-4.9); Lymphocytes Percent Auto 16.7 % (20-40); Mean Corpuscular HGB Conc 32.6 g/dl (31.0-35.0); Mean Corpuscular Hemoglobin 30.4 pg (27.0-33.0); Mean Corpuscular Volume 93.2 fL (80.0-98.0); Mean Platelet Volume 8.9 fL (9.4-12.3); Monocytes Absolute Auto 0.5 X10*3/uL (0.1-1.2); Monocytes Percent Auto 5.3 % (2-11); Neutrophils Absolute Auto 7.6 x10*3/uL (2.0-8.3); Neutrophils Percent Auto 75.8 % (45-73); Platelet Count 420 X10*3/uL (160-400); Red Blood Count 3.98 X10*6/uL (4.20-5.50); Red Cell Distribution Width 13.9 % (11.0-16.0)
[2025-01-28 11:57] LABS: Vitamin B12 250 pg/mL (200-900)
[2025-01-28 12:05] LABS: Alanine Aminotransferase 37 U/L (0-31); Albumin Level 3.7 g/dL (3.5-5.0); Alkaline Phosphatase 192 U/L (39-117); Anion Gap 12 (12-20); Aspartate Amino Transferase 26 U/L (5-31); Bilirubin Direct 0.2 mg/dL (0.0-0.5); Bilirubin Total 0.6 mg/dL (0.0-1.0); Blood Urea Nitrogen 18 mg/dL (9-16); Calcium 9.6 mg/dL (8.4-10.2); Carbon Dioxide 27 mmol/L (22-29); Chloride 108 mmol/L (96-108); Cholesterol 158 mg/dL (<200); Estimated Glomerular Filt Rate > 60; Ferritin 308 ng/mL (10-250); Glucose Random 81 mg/dL (60-115); HDL Cholesterol 55 mg/dL (>40); LDL Cholesterol Calculated 86 mg/dL (<100); Potassium 3.9 mmol/L (3.3-5.1); Sodium 143 mmol/L (135-145); TSH reflex Free T4 3.73 uIU/mL (0.32-4.0); Total Protein 6.8 g/dL (6.5-8.0); Triglycerides 86 mg/dL (<150); Vitamin D 25-OH Total 24.6 ng/mL (>30)
[2025-01-30 20:23] LABS: TS Negative Control Passed; TS Panel A 0; TS Panel B 0; TS Positive Control Passed; TSpotTB Negative (Negative)
== END 2025-01-28 08:23 | disposition home or self-care (01) ==
LOC: HO.HHCL 08:22
PROVIDERS: Visit Provider Family Medicine
DX: E53.8 Deficiency of other specified B group vitamins (principal); I10 Essential (primary) hypertension; D64.9 Anemia, unspecified; E78.5 Hyperlipidemia, unspecified; Z98.84 Bariatric surgery status; Z11.1 Encounter for screening for respiratory tuberculosis
CPT/HCPCS: 36415; 80048; 80061; 80076; 82306; 82607; 82728; 84443; 85025; 86481